=== PATIENT | female | born 1950 | race Caucasian/White ===

== ENCOUNTER 2020-01-19 10:23 | Outpatient (REF) | payer MEDICARE, SELFPAY ==
--- NOTE | 2020-01-19 10:57 | XR_ITS ---
EXAMINATION: XR KNEE, BILATERAL XR KNEE, LEFT CLINICAL INFORMATION: Pain in left knee COMPARISON: None TECHNIQUE: AP standing view of both knees. Lateral and sunrise views of the left knee. FINDINGS: Left knee: No fracture or subluxation. Mild medial compartment and patellofemoral compartment joint space narrowing. Small tricompartmental marginal osteophytes. No joint effusion. Right knee: No fracture or subluxation. Mild medial compartment joint space narrowing with marginal osteophytes at the medial and lateral compartments. XR/XR knee LT 2V IMPRESSION: Lateral compartmental degenerative changes of the left knee as above.
--- NOTE | 2020-01-19 10:57 | XR_ITS ---
EXAMINATION: XR KNEE, BILATERAL XR KNEE, LEFT CLINICAL INFORMATION: Pain in left knee COMPARISON: None TECHNIQUE: AP standing view of both knees. Lateral and sunrise views of the left knee. FINDINGS: Left knee: No fracture or subluxation. Mild medial compartment and patellofemoral compartment joint space narrowing. Small tricompartmental marginal osteophytes. No joint effusion. Right knee: No fracture or subluxation. Mild medial compartment joint space narrowing with marginal osteophytes at the medial and lateral compartments. XR/XR knee standing BI IMPRESSION: Lateral compartmental degenerative changes of the left knee as above.
== END 2020-01-19 10:24 | disposition home or self-care (01) ==
LOC: HO.HOSX 10:23
PROVIDERS: PCP Family Medicine; Referring Provider Family Medicine; Visit Provider Orthopaedic Surgery
DX: M25.562 Pain in left knee (principal); M25.561 Pain in right knee
CPT/HCPCS: 20610; 73560; 73565; 99202; J1040

== ENCOUNTER → 2020-02-06 13:40 | Outpatient (BNVA) | payer MEDICARE, SELFPAY | PROVIDERS: PCP Family Medicine; Visit Provider Orthopaedic Surgery | DX: M17.11 Unilateral primary osteoarthritis, right knee (principal); I10 Essential (primary) hypertension | CPT/HCPCS: 20610; 99212; J1040 ==

== ENCOUNTER 2020-02-13 10:45 | Outpatient (REF) | payer MEDICARE, SELFPAY ==
[2020-02-13 14:24] LABS: Cholesterol 260 mg/dL; HDL Cholesterol 39 mg/dL; Triglycerides 413 mg/dL
[2020-02-15 04:17] LABS: LDL Cholesterol Direct 162 mg/dL (<100)
== END 2020-02-13 10:46 | disposition home or self-care (01) ==
LOC: HO.WFDLDS 10:45
PROVIDERS: PCP Family Medicine; Visit Provider Family Medicine
DX: Z00.00 Encounter for general adult medical examination without abnormal findings (principal); E78.5 Hyperlipidemia, unspecified; Z20.828 Contact with and (suspected) exposure to other viral communicable diseases
CPT/HCPCS: 80061; 83721

== ENCOUNTER → 2020-03-13 13:43 | Outpatient (BNVA) | payer MEDICARE, SELFPAY | PROVIDERS: Visit Provider Internal Medicine Cardiovascular Disease | DX: I10 Essential (primary) hypertension (principal); Z86.711 Personal history of pulmonary embolism | CPT/HCPCS: 93005; 99212 ==

== ENCOUNTER → 2020-03-18 07:48 | Outpatient (BNV) | payer MEDICARE, SELFPAY | PROVIDERS: PCP Family Medicine; Visit Provider Internal Medicine | DX: D68.51 Activated protein C resistance (principal); Z86.711 Personal history of pulmonary embolism | CPT/HCPCS: 99212; 99213; 99214 ==

== ENCOUNTER → 2020-05-14 07:55 | Outpatient (BNVA) | payer MEDICARE, SELFPAY | PROVIDERS: PCP Family Medicine; Visit Provider Orthopaedic Surgery | DX: M17.11 Unilateral primary osteoarthritis, right knee (principal) | CPT/HCPCS: 20610; 99212; J1040 ==

== ENCOUNTER 2020-05-20 18:20 | Inpatient (IN) | payer MEDICARE, SELFPAY ==
--- NOTE | ~2020-05-20 | CT_ITS ---
EXAMINATION: CT HEAD WITHOUT CONTRAST CLINICAL INFORMATION: headache; htn urgency COMPARISON: 11/02/2017 TECHNIQUE: Contiguous axial imaging was performed from the skull base to vertex without intravenous administration of contrast. This CT examination was performed using dose optimization techniques as appropriate, variously including the following: *Automated exposure control *Adjustment of mA and/or kV according to patient size (this includes techniques or standardized protocols for targeted exams where dose is matched to indication/reason for exam; i.e. extremities or head) *Use of iterative reconstruction technique DLP: 737 mGy-cm FINDINGS: There is no evidence of acute intracranial hemorrhage or territorial infarction. No abnormal mass effect or midline shift is seen. Vick to white matter differentiation is well preserved. No extra-axial fluid collections are identified. The ventricles are normal in size. A few subtle foci of hypoattenuation in the subcortical and periventricular white matter are most consistent with chronic microangiopathic changes. Calcific atherosclerosis is present within the cavernous and supraclinoid segments of the internal carotid arteries. Hyperostosis frontalis interna is again noted. The osseous structures and soft tissues are otherwise normal. The mastoid air cells and visualized portions of the paranasal sinuses are well aerated. CT/CT head/brain wo con IMPRESSION: No acute intracranial pathology.
--- NOTE | ~2020-05-20 | XR_ITS ---
EXAMINATION: XR CHEST CLINICAL INFORMATION: Chest pain COMPARISON: Previous CT of the chest September 2019 and chest x-ray November 2017 TECHNIQUE: 2 views of the chest were obtained. FINDINGS: The cardiac and mediastinal contours are stable. The lung volumes are low. The lungs are clear. There is no pleural effusion or pneumothorax. Bony structures are unremarkable. There are surgical clips in the right neck. XR/XR chest 2V IMPRESSION: No evidence for acute disease in the chest.
[2020-05-20 18:24] VITALS: BP 230/81; PULSE 78; RESP 18; TEMP 36.8; O2SAT 96; BMI 96.7
--- NOTE | 2020-05-20 18:30 | ECG_ITS ---
Test Reason : CP Blood Pressure : / mmHG Vent. Rate : 060 BPM Atrial Rate : 060 BPM P-R Int : 180 ms QRS Dur : 132 ms QT Int : 454 ms P-R-T Axes : 069 061 023 degrees QTc Int : 454 ms Normal sinus rhythm Right bundle branch block Abnormal ECG When compared with ECG of 01-NOV-2018 17:20, No significant change was found Referred By: Katerin Laughlin Electronically Signed By:DIANA ELMORE MD
[2020-05-20 20:25] LABS: MANUAL DIFF FLAG NO
[2020-05-20 20:26] LABS: Basophils Absolute Auto 0.1 X10*3/uL (0.0-0.2); Basophils Percent Auto 0.6 % (0-2); Eosinophils Absolute Auto 0.2 X10*3/uL (0.0-0.4); Eosinophils Percent Auto 1.9 % (0-4); Hematocrit 43.2 % (37-47); Hemoglobin 14.3 g/dl (12.0-16.0); Imm Gran Abs Auto 0.03 X10*3/uL (0.00-0.03); Imm Gran Pct Auto 0.3 % (0.0-0.4); Lymphocytes Percent Auto 35.7 % (20-40); Mean Corpuscular HGB Conc 33.1 g/dl (31.0-35.0); Mean Corpuscular Hemoglobin 30.4 pg (27.0-33.0); Mean Corpuscular Volume 91.9 fL (80-98); Mean Platelet Volume 10.6 fL (9.4-12.3); Monocytes Absolute Auto 0.9 X10*3/uL (0.1-1.2); Monocytes Percent Auto 8.2 % (2-11); Neutrophils Percent Auto 53.3 % (45-73); Platelet Count 234 X10*3/uL (160-400); Red Cell Distribution Width 13.2 % (11.0-16.0); White Blood Count 11.3 X10*3/uL (4.8-10.8)
[2020-05-20 20:37] VITALS: BP 200/79; PULSE 56; RESP 20; TEMP 36.9; O2SAT 95
--- NOTE | 2020-05-20 20:38 | PC.NURSE ---
REPORTS UNDER STRESS. RECENTLY LOST SON TO HEART ATTACK. TOOK BP MEDS TODAY.
[2020-05-20 20:48] LABS: Anion Gap 11 (12-20); Blood Urea Nitrogen 19 mg/dL (9-16); Carbon Dioxide 29 mmol/L (22-29); Chloride 104 mmol/L (96-108); Creatinine Clr Calc Pharmacy 137.2; Estimated Glomerular Filt Rate > 60; Glucose Random 113 mg/dL (60-115); Potassium 4.2 mmol/L (3.3-5.1); Sodium 140 mmol/L (135-145)
[2020-05-20 21:03] LABS: Troponin-I High Sensitivity 108.2 ng/L (<3.5-17.0)
--- NOTE | 2020-05-20 21:23 | ED.GENADULT ---
HPI - General Adult General Chief complaint: General Medical Stated complaint: heart racing Time Seen by Provider: 05/20/20 21:23 Source: patient Mode of arrival: ambulatory History of Present Illness HPI narrative: This is 69-year-old female who presents with acknowledged recent loss of her son on 05/08 and states that today she began having difficulties with her blood pressure control as well as having a headache but denies any associated visual or speech deficits and denies any unilateral numbness/tingling/weakness. However, her headache has persisted despite taking Tylenol at approximately 2:30 p.m. this afternoon and additional blood pressure medication at 3:30 p.m. patient states that after taking the Lopressor she is feeling better, chest pain has resolved. Related Data Home Medications Medication Instructions Recorded Confirmed chlorthalidone 50 mg tablet 50 mg PO DAILY 01/19/20 05/20/20 lisinopril 40 mg tablet 40 mg PO DAILY 01/19/20 05/20/20 paroxetine HCl 20 mg tablet 20 mg PO DAILY 01/19/20 05/20/20 multivitamin 1 tab PO DAILY 03/18/20 05/20/20 aspirin 81 mg tablet,delayed 81 mg PO DAILY 05/14/20 05/20/20 release gabapentin 300 mg PO BID 05/20/20 05/20/20 metformin 750 mg PO BID 05/20/20 05/20/20 Previous Rx's Medication Instructions Recorded metoprolol tartrate 25 mg tablet 25 mg PO BID #180 tab 02/27/20 oxybutynin chloride 5 mg tablet 5 mg PO DAILY 90 Days #90 tab 03/17/20 fluticasone propionate 50 1 spray INTRANASAL BID 30 Days #16 04/24/20 mcg/actuation nasal g spray,suspension acetaminophen 300 mg-codeine 30 mg 1 - 2 tab PO Q8H PRN #20 tab 05/14/20 tablet Allergies Allergy/AdvReac Type Severity Reaction Status Date / Time oxycodone [OXYCODONE] Allergy Mild NAUSEA & Verified 03/13/20 13:59 VOMITING, auditory hallucination, hallucinations bupropion [From WELLBUTRIN] AdvReac Mild NAUSEA & Verified 03/13/20 13:59 VOMITING Review of Systems Review of Systems: Pertinent positives and negatives as stated in HPI 10 point review systems is otherwise negative. 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 GENERAL: Well developed, well nourished, mild distress. HEAD: Normocephalic/atraumatic, EYES: PERRLA, EOMI NOSE: Mild, transient epistaxis of the right nare OROPHARYNX: no oral lesions noted, posterior pharynx clear NECK: Supple, no adenopathy LUNGS: Normal breath sounds. No adventitious sounds or accessory muscle use. SpO2<96> CARDIOVASCULAR: Regular rate and rhythm without noted murmurs, no JVD or lower extremity edema. ABDOMEN: Obese, Soft, non-tender, non-distended with bowel sounds. SKIN: Inspection of the skin reveals no rashes NEUROLOGIC: Alert and oriented x 4. Patient is slightly tearful due to grieving process. Course Course Course Narrative: This is a 69-year-old female with history and clinical presentation consistent with uncontrolled hypertension that likely contributed to patient's headache and chest pain symptoms but likely component of anxiety as well secondary to grieving process with the recent loss of her son. Patient is not suicidal and states that she has good support systems with her friends. Patient is currently asymptomatic except for the headache without any neurologic deficits. Review of all investigations negative for any acute findings other than UTI and on serial troponins noted to be consistent with NSTEMI. The case was discussed with Cardiology and inpatient hospitalist team and patient was provided with ASA and Lovenox and admitted. Medical Decision Making Lab Data Result diagrams: 05/20/20 20:20 05/20/20 20:20 Labs: Lab Results 05/20/20 05/20/20 05/20/20 Range/Units 20:20 20:20 20:20 WBC 11.3 H (4.8-10.8) X10*3/uL RBC 4.70 (4.20-5.50) X10*6/uL Hgb 14.3 (12.0-16.0) g/dl Hct 43.2 (37-47) % MCV 91.9 (80-98) fL MCH 30.4 (27.0-33.0) pg MCHC 33.1 (31.0-35.0) g/dl RDW 13.2 (11.0-16.0) % Plt Count 234 (160-400) X10*3/uL MPV 10.6 (9.4-12.3) fL Immature Gran % (Auto) 0.3 (0.0-0.4) % Neut % (Auto) 53.3 (45-73) % Lymph % (Auto) 35.7 (20-40) % [place] % (Auto) 8.2 (2-11) % Eos % (Auto) 1.9 (0-4) % Baso % (Auto) 0.6 (0-2) % Lymph # (Auto) 4.0 (1.2-4.9) X10*3/uL [place] # (Auto) 0.9 (0.1-1.2) X10*3/uL Eos # (Auto) 0.2 (0.0-0.4) X10*3/uL Baso # (Auto) 0.1 (0.0-0.2) X10*3/uL Abs Immat Gran (auto) 0.03 (0.00-0.03) X10*3/uL Absolute Neuts (auto) 6.0 (2.0-8.3) X10*3/uL Absolute Nucleated RBC 0.000 (0.0-0.012) X10*3/uL Nucleated RBC % (auto) 0.0 (0.0-0.2) /100WBC PT 11.7 (10.8-13.0) SEC INR 1.0 (0.9-1.1) APTT 35.1 (24.1-38.0) SEC Hold Blue Top SEE NOTE Sodium 140 (135-145) mmol/L Potassium 4.2 (3.3-5.1) mmol/L Chloride 104 (96-108) mmol/L Carbon Dioxide 29 (22-29) mmol/L Anion Gap 11 L (12-20) BUN 19 H (9-16) mg/dL Creatinine 0.77 (0.5-1.4) mg/dL Estim Creat Clear Calc 137.2 Estimated GFR > 60 Random Glucose 113 (60-115) mg/dL Calcium 9.0 (8.4-10.2) mg/dL Troponin I High Sens (<3.5-17.0) ng/L Urine Color Urine Appearance Urine pH (5.0-8.0) Ur Specific [place] (1.005-1.025) Urine Protein (NEG-TRACE) MG/DL Urine Glucose (UA) (NEG) MG/DL Urine Ketones (NEG) MG/DL Urine Blood (NEG) Urine Nitrite (NEG) Ur Leukocyte Esterase (NEG) Urine RBC (0) /HPF Urine WBC (0-4) /HPF Ur Squamous Epith Cells /LPF Ur Renal Epithelial Cell /LPF Urine Bacteria /LPF Urine Mucus /LPF 05/20/20 05/20/20 05/21/20 Range/Units 20:20 22:06 00:07 WBC (4.8-10.8) X10*3/uL RBC (4.20-5.50) X10*6/uL Hgb (12.0-16.0) g/dl Hct (37-47) % MCV (80-98) fL MCH (27.0-33.0) pg MCHC (31.0-35.0) g/dl RDW (11.0-16.0) % Plt Count (160-400) X10*3/uL MPV (9.4-12.3) fL Immature Gran % (Auto) (0.0-0.4) % Neut % (Auto) (45-73) % Lymph % (Auto) (20-40) % [place] % (Auto) (2-11) % Eos % (Auto) (0-4) % Baso % (Auto) (0-2) % Lymph # (Auto) (1.2-4.9) X10*3/uL [place] # (Auto) (0.1-1.2) X10*3/uL Eos # (Auto) (0.0-0.4) X10*3/uL Baso # (Auto) (0.0-0.2) X10*3/uL Abs Immat Gran (auto) (0.00-0.03) X10*3/uL Absolute Neuts (auto) (2.0-8.3) X10*3/uL Absolute Nucleated RBC (0.0-0.012) X10*3/uL Nucleated RBC % (auto) (0.0-0.2) /100WBC PT (10.8-13.0) SEC INR (0.9-1.1) APTT (24.1-38.0) SEC Hold Blue Top Sodium (135-145) mmol/L Potassium (3.3-5.1) mmol/L Chloride (96-108) mmol/L Carbon Dioxide (22-29) mmol/L Anion Gap (12-20) BUN (9-16) mg/dL Creatinine (0.5-1.4) mg/dL Estim Creat Clear Calc Estimated GFR Random Glucose (60-115) mg/dL Calcium (8.4-10.2) mg/dL Troponin I High Sens 108.2 H 433.2 H D (<3.5-17.0) ng/L Urine Color YELLOW Urine Appearance CLEAR Urine pH 7.0 (5.0-8.0) Ur Specific [place] 1.020 (1.005-1.025) Urine Protein NEG (NEG-TRACE) MG/DL Urine Glucose (UA) NEG (NEG) MG/DL Urine Ketones NEG (NEG) MG/DL Urine Blood NEG (NEG) Urine Nitrite NEG (NEG) Ur Leukocyte Esterase 1+ H (NEG) Urine RBC 0-2 (0) /HPF Urine WBC 10-14 H (0-4) /HPF Ur Squamous Epith Cells TRACE /LPF Ur Renal Epithelial Cell TRACE /LPF Urine Bacteria NONE /LPF Urine Mucus 2+ /LPF ECG Data Attestation: I personally reviewed and interpreted this ECG as follows: Prior ECG tracings: available for review (11/01/2018 no acute changes on comparison) Interpretation: Normal sinus rhythm, HR-60, no evidence of acute ischemia, RBBB, DC/QTC are within normal limits. Discharge Plan Discharge Clinical Impression: Non-ST elevation NC (NSTEMI), Acute UTI Patient Disposition: Admitted As Inpatient
[2020-05-20 22:09] VITALS: BP 183/66; PULSE 61; RESP 16; O2SAT 96
[2020-05-20] MEDS: Acetaminophen 325 MG TABLET 975 MG PO (22:28)
[2020-05-20 22:44] VITALS: BP 166/47; PULSE 55; RESP 16; O2SAT 96
[2020-05-20] MEDS: hydrOXYzine HCL 50 MG TABLET PO (22:45)
--- NOTE | 2020-05-20 22:56 | PC.NURSE ---
pt states that she is under alot of stress from mourning the loss of both her son and . pt states she has not been eating well and not getting enough sleep. bp elevated pt does take her medication as prescribed. pt bp improving.
[2020-05-20 23:09] LABS: Glucose Urine UA NEG (NEG); Leukocyte Esterase Urine 1+ (NEG); Nitrite Urine NEG (NEG); UACC Culture Trigger YES; Urine Blood NEG (NEG); Urine Ketones NEG (NEG); Urine Protein NEG (NEG-TRACE)
[2020-05-20 23:11] LABS: Appearance Urine CLEAR; Color Urine YELLOW
[2020-05-20 23:33] LABS: Mucus Urine 2+ /LPF; RBC Urine 0-2 /HPF (0); Renal Epithelial Cells Urine TRACE /LPF; Squamous Epithelial Cell Urine TRACE /LPF
[2020-05-21] VITALS (15 sets, daily range): BP systolic 143–193; BP diastolic 38–90; PULSE 55–107; RESP 16–20; TEMP 36.3–36.8; O2SAT 93–98; BMI 44.6
[2020-05-21 00:57] LABS: Troponin-I High Sensitivity 433.2 ng/L (<3.5-17.0)
--- NOTE | 2020-05-21 00:58 | PC.NURSE ---
pt denies chest pain, no sob, no nausea, no abd discomfort. pt watching tv, bp improved 168/38 hr sb 56, repeat ekg to be done.
--- NOTE | 2020-05-21 01:02 | ECG_ITS ---
Test Reason : CP Blood Pressure : / mmHG Vent. Rate : 055 BPM Atrial Rate : 055 BPM P-R Int : 190 ms QRS Dur : 140 ms QT Int : 486 ms P-R-T Axes : 034 058 032 degrees QTc Int : 464 ms Sinus bradycardia Right bundle branch block Abnormal ECG When compared with ECG of 20-MAY-2020 18:40, No significant change was found Referred By: Katerin Laughlin Electronically Signed By:DIANA ELMORE MD
[2020-05-21 01:09] LABS: Prothrombin Time 11.7 SEC (10.8-13.0)
[2020-05-21 01:11] LABS: Partial Thromboplastin Time 35.1 SEC (24.1-38.0)
[2020-05-21] MEDS: Aspirin 81 MG TAB.CHEW 324 MG PO (01:35)
--- NOTE | 2020-05-21 01:43 | P.HPHOSP_ITS ---
History of Present Illness Date of Service: 05/21/20 Chief Complaint: chest pain 69-year-old female with a past medical history of hypertension, diabetes, anxiety, depression presented to the hospital with a chief complaint of chest pain. Patient reports that she has been under stress lately as she lost her son about 2 weeks ago and her about few months ago. Lives alone. Alone 3:00 p.m. this afternoon she had chest pain pressure like in nature nonradiating no associated nausea or diaphoresis; at the same time she had headaches; denies any numbness tingling or focal weakness. And when she checked her blood pressure it was elevated took her metoprolol. Headache started to improve slightly but chest pain was still persistent hence decided to come to the ER for further evaluation. Denies any fever chills cough. Denies any recent travel sick contacts. At the time of my interview patient reported that her chest pain improved. Headache improving. Denied any complaints. Review of all other systems is negative except mentioned above ER course: Per ER team EKG showed RBBB, troponin was elevated from 03/15 2433. Chest pain improved. Patient was given aspirin. Discussed with Dr. ko from Cardiology who recommended to start on anticoagulation with Lovenox and admitted to the [facility] for further evaluation in the morning. 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 Allergies Allergy/AdvReac Type Severity Reaction Status Date / Time oxycodone [OXYCODONE] Allergy Mild NAUSEA & Verified 03/13/20 13:59 VOMITING, auditory hallucination, hallucinations bupropion [From WELLBUTRIN] AdvReac Mild NAUSEA & Verified 03/13/20 13:59 VOMITING Active Medications: Current Medications Generic Name Dose Route Start Last Admin Trade Name Freq PRN Reason Stop Dose Admin Acetaminophen 650 mg 05/21/20 01:33 Acetaminophen 325 Mg Tablet PO Q6H PRN Pain, Mild (Pain Scale 1-3) Enoxaparin Sodium 110 mg 05/21/20 13:45 Enoxaparin Sodium 120 Mg/0.8 Ml Syringe SUBCUT Q12H [facility] Fluticasone Propionate 1 spray 05/21/20 09:00 Fluticasone Propionate Nasal 16 Gm [place] NOSTRIL-B BID [facility] Gabapentin 300 mg 05/21/20 09:00 Gabapentin 300 Mg Capsule PO BID [facility] Insulin Human Lispro 0 unit 05/21/20 07:30 Insulin Lispro 100 Unit/Ml 3 Ml Vial SUBCUT QIDACHS [facility] Protocol Lisinopril 40 mg 05/21/20 09:00 Lisinopril 40 Mg Tablet PO DAILY [facility] Protocol Metformin HCl 750 mg 05/21/20 09:00 Metformin Hcl 500 Mg Tablet PO BID [facility] Metoprolol Tartrate 25 mg 05/21/20 09:00 Metoprolol Tartrate 25 Mg Tablet PO BID [facility] Protocol Multivitamins/Vitamin C 1 tab 05/21/20 09:00 Multivitamin Tablet PO DAILY [facility] Nitroglycerin 0.4 mg 05/21/20 01:33 Nitroglycerin 0.4 Mg Tab.Subl SUBLINGUAL Q5M PRN Chest Pain Non-Formulary Medication 5 mg 05/21/20 09:00 Oxybutynin Chloride PO DAILY [facility] Paroxetine HCl 20 mg 05/21/20 09:00 Paroxetine Hcl 20 Mg Tablet PO DAILY [facility] Sodium Chloride 3 ml 05/21/20 08:00 0.9 % Sodium Chloride Flush 3 Ml Syringe IVFLUSH QSHIFT [facility] Home Medications Medication Instructions Recorded Confirmed Last Taken Type chlorthalidone 50 mg tablet 50 mg PO DAILY 01/19/20 05/20/20 05/20/20 History lisinopril 40 mg tablet 40 mg PO DAILY 01/19/20 05/20/20 05/20/20 History paroxetine HCl 20 mg tablet 20 mg PO DAILY 01/19/20 05/20/20 05/20/20 History multivitamin 1 tab PO DAILY 03/18/20 05/20/20 05/20/20 History aspirin 81 mg tablet,delayed 81 mg PO DAILY 05/14/20 05/20/20 05/19/20 History release gabapentin 300 mg PO BID 05/20/20 05/20/20 05/20/20 History metformin 750 mg PO BID 05/20/20 05/20/20 05/20/20 History Physical Exam Vital Signs and Narrative: Vital Signs: Last Vital Signs Temp 98.4 F 05/20/20 20:37 Pulse 57 05/21/20 01:37 Resp 18 05/21/20 01:37 BP 159/43 H 05/21/20 01:37 Pulse Ox 94 05/21/20 01:37 Body Mass Index 96.7 Gen: Appears be in no acute distress HEENT: NCAT, Moist mucosa. Pulmonary: Vesicular breath sounds, fair air entry CVS: Normal S1-S2 Abdomen: BS+, Soft, Nontender Extremities: Warm well perfused Neuro: Alert and awake. Results Labs CBC and Chem 7: 05/20/20 20:20 05/20/20 20:20 Labs: Laboratory Results - last 24 hr 05/20/20 05/20/20 05/20/20 20:20 20:20 20:20 MCV 91.9 MCH 30.4 MCHC 33.1 RDW 13.2 Plt Count 234 MPV 10.6 Immature Gran % (Auto) 0.3 Neut % (Auto) 53.3 Lymph % (Auto) 35.7 [place] % (Auto) 8.2 Eos % (Auto) 1.9 Baso % (Auto) 0.6 Lymph # (Auto) 4.0 [place] # (Auto) 0.9 Eos # (Auto) 0.2 Baso # (Auto) 0.1 Abs Immat Gran (auto) 0.03 Absolute Neuts (auto) 6.0 Absolute Nucleated RBC 0.000 Nucleated RBC % (auto) 0.0 PT 11.7 INR 1.0 APTT 35.1 Hold Blue Top SEE NOTE Anion Gap 11 L Estim Creat Clear Calc 137.2 Estimated GFR > 60 Random Glucose 113 Calcium 9.0 Troponin I High Sens Urine Color Urine Appearance Urine pH Ur Specific [place] Urine Protein Urine Glucose (UA) Urine Ketones Urine Blood Urine Nitrite Ur Leukocyte Esterase Urine RBC Urine WBC Ur Squamous Epith Cells Ur Renal Epithelial Cell Urine Bacteria Urine Mucus 05/20/20 05/20/20 05/21/20 20:20 22:06 00:07 MCV MCH MCHC RDW Plt Count MPV Immature Gran % (Auto) Neut % (Auto) Lymph % (Auto) [place] % (Auto) Eos % (Auto) Baso % (Auto) Lymph # (Auto) [place] # (Auto) Eos # (Auto) Baso # (Auto) Abs Immat Gran (auto) Absolute Neuts (auto) Absolute Nucleated RBC Nucleated RBC % (auto) PT INR APTT Hold Blue Top Anion Gap Estim Creat Clear Calc Estimated GFR Random Glucose Calcium Troponin I High Sens 108.2 H 433.2 H D Urine Color YELLOW Urine Appearance CLEAR Urine pH 7.0 Ur Specific [place] 1.020 Urine Protein NEG Urine Glucose (UA) NEG Urine Ketones NEG Urine Blood NEG Urine Nitrite NEG Ur Leukocyte Esterase 1+ H Urine RBC 0-2 Urine WBC 10-14 H Ur Squamous Epith Cells TRACE Ur Renal Epithelial Cell TRACE Urine Bacteria NONE Urine Mucus 2+ Assessment and Plan (1) Chest pain: Status: Acute 69-year-old female with a past medical history of hypertension, diabetes, anxiety, depression, osteoarthritis presented to the hospital with a chief complaint of chest pain/headache; noted to be in hypertensive urgency/NSTEMI. Admitted for further evaluation. NSTEMI: Patient's chest pain improved. Troponin elevated from 108-433. Cardiology aware, recommended anticoagulation. Patient given aspirin and Lovenox. Will continue for now. Telemetry; cycle enzymes. Will also obtain echocardiogram to rule out any stress cardiomyopathy or wall motion abnormality. Hypertensive urgency: Patient's blood pressure improved 230/81 to 168/43, without any intervention. Patient received hydroxyzine for anxiety in the ER. Will continue her home medications from later in the day. UTI: Continue ceftriaxone. Follow up cultures. Diabetes: Insulin sliding scale. Depression: Continue home medications. DVT prophylaxis: Patient on systemic anticoagulation. Code status: Full code
[2020-05-21] MEDS: cefTRIAXone sodium 1 GM in 0.9 % Sodium Chloride 50 ML IV (02:04)
[2020-05-21] MEDS: Enoxaparin Sodium 100 MG/ML SYRINGE 110 MG SUBCUT (02:07)
[2020-05-21 03:18] LABS: COVID-19 Test Negative (Negative); IDNOW Serial# 9DD0AD1C
--- NOTE | 2020-05-21 05:40 | PC.NURSE ---
pt bp elevated due to not taking her medications last night. pt missed her bp and devyn[ronaldon
--- NOTE | 2020-05-21 05:46 | PC.NURSE ---
hospitalist made aware of pt bp and her lower back pain. bp range no lower than the 170's for SBP. pain relief order for lido patch to be entered.
[2020-05-21 08:01] LABS: MANUAL DIFF FLAG NO
[2020-05-21 08:05] LABS: Basophils Absolute Auto 0.1 X10*3/uL (0.0-0.2); Basophils Percent Auto 0.8 % (0-2); Eosinophils Absolute Auto 0.2 X10*3/uL (0.0-0.4); Eosinophils Percent Auto 2.1 % (0-4); Hematocrit 43.5 % (37-47); Imm Gran Abs Auto 0.02 X10*3/uL (0.00-0.03); Imm Gran Pct Auto 0.3 % (0.0-0.4); Lymphocytes Absolute Auto 3.2 X10*3/uL (1.2-4.9); Lymphocytes Percent Auto 41.9 % (20-40); Mean Corpuscular HGB Conc 32.2 g/dl (31.0-35.0); Mean Corpuscular Hemoglobin 29.8 pg (27.0-33.0); Mean Corpuscular Volume 92.6 fL (80-98); Mean Platelet Volume 10.5 fL (9.4-12.3); Monocytes Absolute Auto 0.6 X10*3/uL (0.1-1.2); Monocytes Percent Auto 7.5 % (2-11); Neutrophils Absolute Auto 3.6 X10*3/uL (2.0-8.3); Neutrophils Percent Auto 47.4 % (45-73); Platelet Count 236 X10*3/uL (160-400); Red Cell Distribution Width 13.3 % (11.0-16.0); White Blood Count 7.6 X10*3/uL (4.8-10.8)
--- NOTE | 2020-05-21 08:29 | PC.NURSE ---
report given for admission
[2020-05-21 08:31] LABS: Anion Gap 8 (12-20); Blood Urea Nitrogen 17 mg/dL (9-16); Calcium 8.6 mg/dL (8.4-10.2); Carbon Dioxide 29 mmol/L (22-29); Chloride 105 mmol/L (96-108); Creatinine Clr Calc Pharmacy 90.3; Estimated Glomerular Filt Rate > 60; Glucose Random 127 mg/dL (60-115); Potassium 3.9 mmol/L (3.3-5.1); Sodium 138 mmol/L (135-145)
--- NOTE | 2020-05-21 09:14 | MHC.CM.PN ---
pt lives alone due to recent losses. she reports she is independent in her care. active in community. has no svcs in the home. the plan at this time is [place] [facility] [place] action to transport. cm to cont. to follow.
--- NOTE | 2020-05-21 09:25 | PM.CNCAR ---
History of Present Illness History of Present Illness Date of Service: 05/21/20 Requesting physician: Boris Melendez Consult reason: chest pain Chief complaint: NSTEMI Narrative: Thank you for asking as to see Joi in cardiology consultation today for elevated troponins and chest discomfort. She is a pleasant 69-year-old woman with prior history of pulmonary embolism, hypertension, diabetes and hyperlipidemia. She is still grieving sudden loss of her son about a week and half ago in very emotional about it. Yesterday afternoon developed sudden onset chest pressure. Symptoms then subsided and came back again. She came to the emergency room. Initial troponin was slightly elevated repeat troponin was further elevated with more than 50% delta. EKG did not show any significant changes. Her symptoms subsided emergency room. While talking about his son she was having more chest discomfort but much milder than yesterday. She says she feels a lot better. She denies any shortness of breath. Denies any nausea vomiting diaphoresis lightheadedness, syncope. No palpitations. She had a cardiac catheterization in 2010 which showed normal coronary Angiography Review of Systems Constitutional: Constitutional: Reports no additional constitutional complaints Cardiovascular: Cardiovascular: Reports chest pain at rest, Denies syncope, Denies lightheadedness, Denies Loss of Consciousness and Denies palpitations Respiratory: Respiratory: Reports no additional respiratory complaints Gastrointestinal: Gastrointestinal: Reports no additional gastrointestinal complaints Genitourinary: Genitourinary: Reports no additional female genitourinary complaints Musculoskeletal: Musculoskeletal: Reports no additional musculoskeletal complaints Integumentary/Breasts: Skin/Breast: Reports system reviewed and no additional complaints, except as docu Neurologic: Reports system reviewed and no additional complaints, except as documented and Denies syncope Psychiatric: Psychiatric: Reports no additional psychiatric complaints Endocrine: Endocrine: Reports no additional endocrine complaints and Denies palpitations [facility] Past Medical History Medical History Hypertension PSVT (paroxysmal supraventricular tachycardia) Uterine cancer Family History Family History Sister Lung cancer Stroke Father Heart attack Mother Heart attack Son Diabetes Brother Parkinsons Brother Diverticulitis Surgical History Surgical History History of hysterectomy Social History Social History Alcohol intake: never Smoking Status: Former smoker Packs Per Day: 1 Use of substances other than those prescribed or required for medical reasons: No Advance Directives: No service: No Current occupational status: retired 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 Allergies Allergy/AdvReac Type Severity Reaction Status Date / Time oxycodone [OXYCODONE] Allergy Mild NAUSEA & Verified 03/13/20 13:59 VOMITING, auditory hallucination, hallucinations bupropion [From WELLBUTRIN] AdvReac Mild NAUSEA & Verified 03/13/20 13:59 VOMITING Active Medications: Current Medications Generic Name Dose Route Start Last Admin Trade Name Freq PRN Reason Stop Dose Admin Acetaminophen 650 mg 05/21/20 01:33 Acetaminophen 325 Mg Tablet PO Q6H PRN Pain, Mild (Pain Scale 1-3) Enoxaparin Sodium 110 mg 05/21/20 14:00 Enoxaparin Sodium 120 Mg/0.8 Ml Syringe SUBCUT Q12H [facility] Fluticasone Propionate 1 spray 05/21/20 09:00 Fluticasone Propionate Nasal 16 Gm [place] NOSTRIL-B BID [facility] Gabapentin 300 mg 05/21/20 09:00 Gabapentin 300 Mg Capsule PO BID [facility] Ceftriaxone Sodium 1 gm/ 50 mls @ 100 mls/hr 05/22/20 02:00 Sodium Chloride IV Q24H [facility] Insulin Human Lispro 0 unit 05/21/20 07:30 Insulin Lispro 100 Unit/Ml 3 Ml Vial SUBCUT QIDACHS [facility] Protocol Lidocaine 1 patch 05/21/20 09:00 Lidocaine 4 % Patch Adh..Patch TRANSDERMA DAILY [facility] Protocol Lisinopril 40 mg 05/21/20 09:00 Lisinopril 40 Mg Tablet PO DAILY [facility] Protocol Metformin HCl 750 mg 05/21/20 09:00 Metformin Hcl 500 Mg Tablet PO BID [facility] Metoprolol Tartrate 25 mg 05/21/20 09:00 Metoprolol Tartrate 25 Mg Tablet PO BID [facility] Protocol Multivitamins/Vitamin C 1 tab 05/21/20 09:00 Multivitamin Tablet PO DAILY [facility] Nitroglycerin 0.4 mg 05/21/20 01:33 Nitroglycerin 0.4 Mg Tab.Subl SUBLINGUAL Q5M PRN Chest Pain Oxybutynin Chloride 5 mg 05/21/20 09:00 Oxybutynin Chloride Er 5 Mg Tab.Er.24 PO DAILY [facility] Paroxetine HCl 20 mg 05/21/20 09:00 Paroxetine Hcl 20 Mg Tablet PO DAILY [facility] Sodium Chloride 3 ml 05/21/20 08:00 0.9 % Sodium Chloride Flush 3 [facility] Medications Medication Instructions Recorded Confirmed Last Taken Type chlorthalidone 50 mg tablet 50 mg PO DAILY 01/19/20 05/20/20 05/20/20 History lisinopril 40 mg tablet 40 mg PO DAILY 01/19/20 05/20/20 05/20/20 History paroxetine HCl 20 mg tablet 20 mg PO DAILY 01/19/20 05/20/20 05/20/20 History multivitamin 1 tab PO DAILY 03/18/20 05/20/20 05/20/20 History aspirin 81 mg tablet,delayed 81 mg PO DAILY 05/14/20 05/20/20 05/19/20 History release gabapentin 300 mg PO BID 05/20/20 05/20/20 05/20/20 History metformin 750 mg PO DAILY 05/20/20 05/21/20 05/20/20 History Physical Exam Vital Signs: Vital Signs: Last Vital Signs Temp 98.4 F 05/20/20 20:37 Pulse 55 05/21/20 08:00 Resp 16 05/21/20 08:00 BP 171/52 H 05/21/20 08:00 Pulse Ox 98 05/21/20 08:00 Body Mass Index 44.6 Const: General: cooperative, comfortable, no acute distress, alert and awake Nutritional Appearance: obese Orientation/consciousness: patient oriented x3 Limitations: no limitations HENMT: Head: Yes normocephalic and Yes atraumatic Neck: Neck: Yes trachea midline, Yes supple and Yes no JVD Chest: Chest palpation & inspection: normal inspection of the chest Resp: Effort & Inspection: normal respiratory effort Auscultation: clear to auscultation bilaterally Cardio: Jugular venous distension: no JVD Rate: regular rate Rhythm: regular rhythm Heart sounds: S1 normal heart sound present and S2 normal heart sound present GI: Auscultation: normal bowel sounds Skin: General skin exam: no rashes or lesions noted Neuro: General: patient oriented x3 and no focal motor deficits Extrem: General: Yes no clubbing, cyanosis or edema Psych: Appearance: grossly normal Results Labs and Meds Result diagrams: 05/21/20 07:56 05/21/20 07:56 Lab results: Laboratory Results - last 24 hr 05/20/20 05/20/20 05/20/20 20:20 20:20 20:20 WBC 11.3 H RBC 4.70 Hgb 14.3 Hct 43.2 MCV 91.9 MCH 30.4 MCHC 33.1 RDW 13.2 Plt Count 234 MPV 10.6 Immature Gran % (Auto) 0.3 Neut % (Auto) 53.3 Lymph % (Auto) 35.7 [place] % (Auto) 8.2 Eos % (Auto) 1.9 Baso % (Auto) 0.6 Lymph # (Auto) 4.0 [place] # (Auto) 0.9 Eos # (Auto) 0.2 Baso # (Auto) 0.1 Abs Immat Gran (auto) 0.03 Absolute Neuts (auto) 6.0 Absolute Nucleated RBC 0.000 Nucleated RBC % (auto) 0.0 PT 11.7 INR 1.0 APTT 35.1 Hold Blue Top SEE NOTE Sodium 140 Potassium 4.2 Chloride 104 Carbon Dioxide 29 Anion Gap 11 L BUN 19 H Creatinine 0.77 Estim Creat Clear Calc 137.2 Estimated GFR > 60 Random Glucose 113 Calcium 9.0 Troponin I High Sens Urine Color Urine Appearance Urine pH Ur Specific [place] Urine Protein Urine Glucose (UA) Urine Ketones Urine Blood Urine Nitrite Ur Leukocyte Esterase Urine RBC Urine WBC Ur Squamous Epith Cells Ur Renal Epithelial Cell Urine Bacteria Urine Mucus COVID-19 ([facility]) COVID-19 Clin Com 05/20/20 05/20/20 05/21/20 20:20 22:06 00:07 WBC RBC Hgb Hct MCV MCH MCHC RDW Plt Count MPV Immature Gran % (Auto) Neut % (Auto) Lymph % (Auto) [place] % (Auto) Eos % (Auto) Baso % (Auto) Lymph # (Auto) [place] # (Auto) Eos # (Auto) Baso # (Auto) Abs Immat Gran (auto) Absolute Neuts (auto) Absolute Nucleated RBC Nucleated RBC % (auto) PT INR APTT Hold Blue Top Sodium Potassium Chloride Carbon Dioxide Anion Gap BUN Creatinine Estim Creat Clear Calc Estimated GFR Random Glucose Calcium Troponin I High Sens 108.2 H 433.2 H D Urine Color YELLOW Urine Appearance CLEAR Urine pH 7.0 Ur Specific [place] 1.020 Urine Protein NEG Urine Glucose (UA) NEG Urine Ketones NEG Urine Blood NEG Urine Nitrite NEG Ur Leukocyte Esterase 1+ H Urine RBC 0-2 Urine WBC 10-14 H Ur Squamous Epith Cells TRACE Ur Renal Epithelial Cell TRACE Urine Bacteria NONE Urine Mucus 2+ COVID-19 ([facility]) COVID-19 Clin Com 05/21/20 05/21/20 05/21/20 02:10 07:56 07:56 WBC 7.6 RBC 4.70 Hgb 14.0 Hct 43.5 MCV 92.6 MCH 29.8 MCHC 32.2 RDW 13.3 Plt Count 236 MPV 10.5 Immature Gran % (Auto) 0.3 Neut % (Auto) 47.4 Lymph % (Auto) 41.9 H [place] % (Auto) 7.5 Eos % (Auto) 2.1 Baso % (Auto) 0.8 Lymph # (Auto) 3.2 [place] # (Auto) 0.6 Eos # (Auto) 0.2 Baso # (Auto) 0.1 Abs Immat Gran (auto) 0.02 Absolute Neuts (auto) 3.6 Absolute Nucleated RBC 0.000 Nucleated RBC % (auto) 0.0 PT INR APTT Hold Blue Top Sodium 138 Potassium 3.9 Chloride 105 Carbon Dioxide 29 Anion Gap 8 L BUN 17 H Creatinine 0.69 Estim Creat Clear Calc 90.3 Estimated GFR > 60 Random Glucose 127 H Calcium 8.6 Troponin I High Sens Urine Color Urine Appearance Urine pH Ur Specific [place] Urine Protein Urine Glucose (UA) Urine Ketones Urine Blood Urine Nitrite Ur Leukocyte Esterase Urine RBC Urine WBC Ur Squamous Epith Cells Ur Renal Epithelial Cell Urine Bacteria Urine Mucus COVID-19 ([facility]) Negative COVID-19 Clin Com See Note EKG shows normal sinus rhythm with right bundle-branch block without acute ischemic changes Imaging Radiologist's impression: Impressions Head CT 05/21/20 01:55 IMPRESSION: No acute intracranial pathology. Assessment and Plan (1) Acute coronary syndrome: Status: Acute Patient's presentation is consistent with acute coronary syndrome with positive troponin. Please continue to trend troponins until you see a down trend. Continue full oral anticoagulation. Other possibility includes stress-induced cardiomyopathy/takotsubo cardiomyopathy. Will obtain an echocardiogram to assess for LV systolic function with apical wall motion abnormality. If echo shows normal wall motion or atypical should undergo cardiac catheterization for acute plaque rupture. Continue management as such. Continue anticoagulation. Continue aspirin. High-intensity statin therapy with Lipitor 80 mg daily. Continue metoprolol and maximized to heart rate around 60 beats per minute. She is having mild chest pressure this morning, most likely anxiety/stress. However blood pressure is uncontrolled, see below start nitro paste. Can add Norvasc for blood pressure continues to remain uncontrolled. (2) Essential hypertension: Status: Acute Uncontrolled blood pressure most likely due to stress and anxiety. Consider addition of nitro paste 1 in q.6 hours. If blood pressure continues to remain elevated add Norvasc to her regimen. Low-salt diet. Will follow with the patient. Thank you for allowing us to partake in the care
--- NOTE | 2020-05-21 10:50 | P.PNIM_ITS ---
Subjective Subjective Date of Service: 05/21/20 Interval History: mild chest discomfort; much improved from yesterday no dyspnea Physical Exam Vital Signs: Vital Signs: Last Vital Signs Temp 97.5 F 05/21/20 10:05 Pulse 107 H 05/21/20 10:05 Resp 18 05/21/20 10:05 BP 170/90 H 05/21/20 10:05 Pulse Ox 96 05/21/20 10:05 Body Mass Index 44.6 Gen: in no acute distress HEENT: sclera anicteric, moist mucus membranes Neck: supple Lungs: clear to auscultation bilaterally Heart: regular rate and rhythm, no murmurs Abd: soft, non-tender, non-distended Ext: no edema Skin: warm/well-perfused Neuro: alert and oriented x3, no focal findings Psych: appropriate affect Objective Data Current Medications Generic Name Dose Route Start Last Admin Trade Name Freq PRN Reason Stop Dose Admin Acetaminophen 650 mg 05/21/20 01:33 Acetaminophen 325 Mg Tablet PO Q6H PRN Pain, Mild (Pain Scale 1-3) Aspirin 81 mg 05/21/20 10:25 Aspirin 81 Mg Tab.Chew PO DAILY [facility] Atorvastatin Calcium 80 mg 05/21/20 10:25 Atorvastatin Calcium 80 Mg Tablet PO DAILY [facility] Enoxaparin Sodium 110 mg 05/21/20 14:00 Enoxaparin Sodium 120 Mg/0.8 Ml Syringe SUBCUT Q12H [facility] Fluticasone Propionate 1 spray 05/21/20 09:00 Fluticasone Propionate Nasal 16 Gm [place] NOSTRIL-B BID [facility] Gabapentin 300 mg 05/21/20 09:00 Gabapentin 300 Mg Capsule PO BID [facility] Ceftriaxone Sodium 1 gm/ 50 mls @ 100 mls/hr 05/22/20 02:00 Sodium Chloride IV Q24H [facility] Insulin Human Lispro 0 unit 05/21/20 07:30 05/21/20 09:26 Insulin Lispro 100 Unit/Ml 3 Ml Vial SUBCUT Not Given QIDACHS [facility] Protocol Lidocaine 1 patch 05/21/20 09:00 Lidocaine 4 % Patch Adh..Patch TRANSDERMA DAILY [facility] Protocol Lisinopril 40 mg 05/21/20 09:00 Lisinopril 40 Mg Tablet PO DAILY [facility] Protocol Metformin HCl 750 mg 05/21/20 09:00 Metformin Hcl 500 Mg Tablet PO BID [facility] Metoprolol Tartrate 25 mg 05/21/20 09:00 Metoprolol Tartrate 25 Mg Tablet PO BID [facility] Protocol Multivitamins/Vitamin C 1 tab 05/21/20 09:00 Multivitamin Tablet PO DAILY [facility] Nitroglycerin 0.4 mg 05/21/20 01:33 Nitroglycerin 0.4 Mg Tab.Subl SUBLINGUAL Q5M PRN Chest Pain Nitroglycerin 1 inch 05/21/20 14:00 Nitroglycerin 2 % Oint 1 Gm Packet TRANSDERMA 05/22/20 14:01 RQ6H WHILE AWAKE [facility] Oxybutynin Chloride 5 mg 05/21/20 09:00 Oxybutynin Chloride Er 5 Mg Tab.Er.24 PO DAILY [facility] Paroxetine HCl 20 mg 05/21/20 09:00 Paroxetine Hcl 20 Mg Tablet PO DAILY [facility] Sodium Chloride 3 ml 05/21/20 08:00 05/21/20 09:27 0.9 % Sodium Chloride Flush 3 Ml Syringe IVFLUSH Not Given QSHIFT [facility] Labs CBC & Chem 7: 05/21/20 07:56 05/21/20 07:56 Labs: Laboratory Results - last 24 hr 05/20/20 05/20/20 05/20/20 20:20 20:20 20:20 WBC 11.3 H RBC 4.70 Hgb 14.3 Hct 43.2 MCV 91.9 MCH 30.4 MCHC 33.1 RDW 13.2 Plt Count 234 MPV 10.6 Immature Gran % (Auto) 0.3 Neut % (Auto) 53.3 Lymph % (Auto) 35.7 [place] % (Auto) 8.2 Eos % (Auto) 1.9 Baso % (Auto) 0.6 Lymph # (Auto) 4.0 [place] # (Auto) 0.9 Eos # (Auto) 0.2 Baso # (Auto) 0.1 Abs Immat Gran (auto) 0.03 Absolute Neuts (auto) 6.0 Absolute Nucleated RBC 0.000 Nucleated RBC % (auto) 0.0 PT 11.7 INR 1.0 APTT 35.1 Hold Blue Top SEE NOTE Sodium 140 Potassium 4.2 Chloride 104 Carbon Dioxide 29 Anion Gap 11 L BUN 19 H Creatinine 0.77 Estim Creat Clear Calc 137.2 Estimated GFR > 60 Random Glucose 113 Calcium 9.0 Troponin I High Sens Urine Color Urine Appearance Urine pH Ur Specific [place] Urine Protein Urine Glucose (UA) Urine Ketones Urine Blood Urine Nitrite Ur Leukocyte Esterase Urine RBC Urine WBC Ur Squamous Epith Cells Ur Renal Epithelial Cell Urine Bacteria Urine Mucus COVID-19 ([facility]) COVID-19 Clin Com 05/20/20 05/20/20 05/21/20 20:20 22:06 00:07 WBC RBC Hgb Hct MCV MCH MCHC RDW Plt Count MPV Immature Gran % (Auto) Neut % (Auto) Lymph % (Auto) [place] % (Auto) Eos % (Auto) Baso % (Auto) Lymph # (Auto) [place] # (Auto) Eos # (Auto) Baso # (Auto) Abs Immat Gran (auto) Absolute Neuts (auto) Absolute Nucleated RBC Nucleated RBC % (auto) PT INR APTT Hold Blue Top Sodium Potassium Chloride Carbon Dioxide Anion Gap BUN Creatinine Estim Creat Clear Calc Estimated GFR Random Glucose Calcium Troponin I High Sens 108.2 H 433.2 H D Urine Color YELLOW Urine Appearance CLEAR Urine pH 7.0 Ur Specific [place] 1.020 Urine Protein NEG Urine Glucose (UA) NEG Urine Ketones NEG Urine Blood NEG Urine Nitrite NEG Ur Leukocyte Esterase 1+ H Urine RBC 0-2 Urine WBC 10-14 H Ur Squamous Epith Cells TRACE Ur Renal Epithelial Cell TRACE Urine Bacteria NONE Urine Mucus 2+ COVID-19 ([facility]) COVID-19 Clin Com 05/21/20 05/21/20 05/21/20 02:10 07:56 07:56 WBC 7.6 RBC 4.70 Hgb 14.0 Hct 43.5 MCV 92.6 MCH 29.8 MCHC 32.2 RDW 13.3 Plt Count 236 MPV 10.5 Immature Gran % (Auto) 0.3 Neut % (Auto) 47.4 Lymph % (Auto) 41.9 H [place] % (Auto) 7.5 Eos % (Auto) 2.1 Baso % (Auto) 0.8 Lymph # (Auto) 3.2 [place] # (Auto) 0.6 Eos # (Auto) 0.2 Baso # (Auto) 0.1 Abs Immat Gran (auto) 0.02 Absolute Neuts (auto) 3.6 Absolute Nucleated RBC 0.000 Nucleated RBC % (auto) 0.0 PT INR APTT Hold Blue Top Sodium 138 Potassium 3.9 Chloride 105 Carbon Dioxide 29 Anion Gap 8 L BUN 17 H Creatinine 0.69 Estim Creat Clear Calc 90.3 Estimated GFR > 60 Random Glucose 127 H Calcium 8.6 Troponin I High Sens Urine Color Urine Appearance Urine pH Ur Specific [place] Urine Protein Urine Glucose (UA) Urine Ketones Urine Blood Urine Nitrite Ur Leukocyte Esterase Urine RBC Urine WBC Ur Squamous Epith Cells Ur Renal Epithelial Cell Urine Bacteria Urine Mucus COVID-19 ([facility]) Negative COVID-19 Clin Com See Note Assessment and Plan (1) NSTEMI (non-ST elevated myocardial infarction): Status: Acute Assessment and Plan: hospital d#1 69yo F with HTN, PSVT, DM2 presented with chest pain, admitted for Tn-I elevation concerning for NSTEMI vs takotsubo cardiomyopathy # NSTEMI - Cardiology consulted. TTE pending. LMWH. ASA, metoprolol, statin, nitroglycerin paste. may require cardiac cath pending TTE results. # HTN - continue metoprolol + lisinopril + NTG; to consider adding amlodipine if needed # DM2 - check A1c, correction-dose lispro, hold MTF # UTI - ceftriaxone d#1, follow UCx # VTE ppx - LMWH
[2020-05-21] MEDS: Gabapentin 300 MG CAPSULE PO ×2 (10:54→21:02)
[2020-05-21] MEDS: metFORMIN HCl 500 MG TABLET 750 MG PO (10:54)
[2020-05-21] MEDS: Atorvastatin Calcium 80 MG TABLET PO (10:55)
[2020-05-21] MEDS: Aspirin 81 MG TAB.CHEW PO (10:55)
[2020-05-21] MEDS: lisinopriL 40 MG TABLET PO (10:56)
[2020-05-21] MEDS: PARoxetine HCL 20 MG TABLET PO (10:57)
[2020-05-21] MEDS: Metoprolol Tartrate 25 MG TABLET PO ×2 (10:57→21:02)
[2020-05-21] MEDS: Multivitamin TABLET 1 TAB PO (10:57)
[2020-05-21] MEDS: Lidocaine 4 % Patch ADH..PATCH 1 PATCH TRANSDERMA (10:58)
--- NOTE | 2020-05-21 11:30 | CA_ITS ---
Transthoracic Echocardiogram Patient (Last, First, Middle): Joi Dennis, Gender: Female Date of : 1950 Age: 69 Procedure Date: 05/21/2020 Procedure Type: Transthoracic Echocardiogram Location: [facility] [place] Height: 157.48 cm Weight: 110.68 kg BSA: 2.08 m2 Heart Rate: bpm BP: 173 / 60 mmHg Chucking Lathe Operator: Referring MD: Boris Melendez MD Bundle Sorter: William Hernandez MD Symptoms: elevated trops; Stress at home; Chest pain; Study Quality: Fair ECG Rhythm: Sinus Conclusions: - 1. Normal LV systolic function with impaired relaxation filling pattern 2. Mild mitral annular calcification with normal cardiac valvular Doppler 3. Normal RV systolic pressure 4. No pericardial effusion Findings Left Ventricle Normal left ventricular size and systolic function. There is mildly increased left ventricular wall thickness. The visually estimated ejection fraction is between 60-65%. Spectral Doppler is indicative of an impaired relaxation filling pattern. E/E prime ratio is between 8 and 15 consistent with indeterminate filling pressures. Right Ventricle Normal right ventricular cavity size and systolic function. Atria The left atrium is mildly dilated. Interatrial shunt cannot be excluded. The right atrium is normal in size. Aortic Valve There is mild calcification of the aortic valve. There is no aortic valve stenosis. There is no aortic valve regurgitation. Mitral Valve There is mild anterior mitral leaflet thickening. There is mild mitral annular calcification. There is trace mitral valve regurgitation. There is no mitral valve stenosis. Pulmonic Valve The pulmonic valve was not well visualized. Tricuspid Valve Likely normal tricuspid valve structure and function. There is trace tricuspid valve regurgitation. The right ventricular systolic pressure is normal. The right ventricular systolic pressure is 13 mmHg. Normal right atrial pressure. There is no evidence of pulmonary hypertension. Great Vessels All visible segments of the aorta are normal in size. The pulmonary artery was not well visualized. Venous The inferior vena cava is normal in size and collapses greater than 50% with inspiration. Pericardium/Pleural There is no evidence of pericardial effusion. Prior Study Comparison No significant change compared to prior study dated: 02/22/2019. Measurements 2D Linear Measurements IVSd: 1.23 0.6-0.9/0.6-1.0 cm LVIDd: 4.56 3.9-5.3/4.2-5.9 cm LVIDd Index: 2.19 2.4-3.2/2.2-3.1 cm/m2 LVIDs: 2.73 2.0-3.6 cm LVPWd: 1.28 0.7-1.1 cm Ao Root: 2.80 2.1-3.5 cm LA Diam: 5.00 2.7-3.8/3.0-4.0 cm LAIDs Index: 2.40 1.5-2.3 cm/m2 LV Mass: 268.92 67-162/88-224 g LV Mass Index: 129.29 43-95/49-115 g/m2 LVOT Diam: 2.00 3.0+(-)1.3 cm 2D Systolic Function EF 4C: 69.80 >55% EF 2C: 55.00 >55% EF BiP: 64.10 >55% Mitral Valve MV Pk E: 0.60 MV PK A: 1.00 MV Decel Time: 274.00 E/A: 0.60 E'Lateral: 5.90 E'Medial: 3.96 E/E' Med: 15.20 E/E' Lat: 10.20 PHT: 80.00 MVA PHT: 2.75 Decel Hayes: 2.19 Aortic Valve AoV Pk Will: 1.61 AoV Mn Will: 0.99 AoV VTI: 0.37 AoV Pk Grad: 10.00 Aov Mn Grad: 5.00 ALANA Cont.VTI: 2.93 LVOT LVOT Pk Will: 1.18 LVOT Mn Will: 0.75 LVOT VTI: 0.35 LVOT Pk Grad: 6.00 LVOT Mn Grad: 3.00 LVOT Diam: 2.00 LVOT Area: 3.14 Diastolic Function MV Pk E: 0.60 MV Pk A: 1.00 E/A: 0.60 E'Medial: 3.96 E/E' Med: 15.20 E' Laterial: 5.90 E/E' Lat: 10.20 Tricuspid Valve TR Pk Will: 1.59 TR Pk Grad: 10.00 RA Press: 3.00 RVSP: 13.00 Great Vessels Aorta Ao Root-2D: 2.80 2.0-3.7 cm Ao Asc: 3.00 2.1-3.4 cm Pulmonary Valve PV Pk Will: 1.25 Peak PV Grad: 6.00 Updated in Other Vendor System with Status of Final William Hernandez MD electronically signed on 05/21/2020 12:43:18 PM with status of Final
[2020-05-21 11:36] LABS: Troponin-I High Sensitivity 220.4 ng/L (<3.5-17.0)
[2020-05-21 12:09] LABS: Glucose, Whole Blood 107 mg/dL (60-115)
[2020-05-21 12:22] LABS: Estimated Average Glucose 166 mg/dL; Hemoglobin A1c % 7.4 %
[2020-05-21] MEDS: Enoxaparin Sodium 120 MG/0.8 ML SYRINGE 110 MG SUBCUT (15:24)
[2020-05-21] MEDS: Nitroglycerin 2 % Oint 1 GM Packet 1 INCH TRANSDERMA ×2 (15:24→21:05)
[2020-05-21] MEDS: 0.9 % Sodium Chloride Flush 3 ML SYRINGE IVFLUSH ×2 (15:28→21:05)
[2020-05-21 16:12] LABS: Glucose, Whole Blood 78 mg/dL (60-115)
[2020-05-21 20:31] LABS: Glucose, Whole Blood 87 mg/dL (60-115)
[2020-05-22 03:19] VITALS: BP 165/74; PULSE 62; RESP 16; TEMP 36.2; O2SAT 93
[2020-05-22] MEDS: Enoxaparin Sodium 120 MG/0.8 ML SYRINGE 110 MG SUBCUT (03:22)
[2020-05-22] MEDS: cefTRIAXone sodium 1 GM in 0.9 % Sodium Chloride 50 ML IV (03:23)
[2020-05-22 06:54] LABS: Cholesterol 155 mg/dL; HDL Cholesterol 33 mg/dL; LDL Cholesterol Calculated 79 mg/dl; Triglycerides 216 mg/dL
[2020-05-22 07:36] VITALS: BP 155/61; PULSE 64; RESP 16; TEMP 36.2; O2SAT 93
[2020-05-22 07:45] LABS: Glucose, Whole Blood 108 mg/dL (60-115)
[2020-05-22] MEDS: 0.9 % Sodium Chloride Flush 3 ML SYRINGE IVFLUSH (07:58)
[2020-05-22] MEDS: Nitroglycerin 2 % Oint 1 GM Packet 1 INCH TRANSDERMA (08:00)
[2020-05-22] MEDS: Fluticasone Propionate Nasal 16 GM SPRAY 1 SPRAY NOSTRIL-B (08:01)
[2020-05-22 08:02] VITALS: BP 155/61; PULSE 64
[2020-05-22] MEDS: PARoxetine HCL 20 MG TABLET PO (08:02)
[2020-05-22] MEDS: Aspirin 81 MG TAB.CHEW PO (08:02)
[2020-05-22] MEDS: Atorvastatin Calcium 80 MG TABLET PO (08:02)
[2020-05-22] MEDS: Multivitamin TABLET 1 TAB PO (08:02)
[2020-05-22] MEDS: amLODIPine Besylate 5 MG TABLET PO (08:02)
[2020-05-22] MEDS: Metoprolol Tartrate 25 MG TABLET PO (08:02)
[2020-05-22 08:03] VITALS: BP 155/61; PULSE 64
[2020-05-22] MEDS: Gabapentin 300 MG CAPSULE PO (08:03)
[2020-05-22] MEDS: Lidocaine 4 % Patch ADH..PATCH 1 PATCH TRANSDERMA (08:03)
[2020-05-22] MEDS: lisinopriL 40 MG TABLET PO (08:03)
--- NOTE | 2020-05-22 09:56 | PM.PNCARD ---
Subjective Subjective Date of Service: 05/22/20 <LEILA Dc - Last Filed: 05/22/20 10:08> 05/22/20 <William Hernandez MD - Last Filed: 05/22/20 12:29> Principal diagnosis: CP, NSTEMI <LEILA Dc - Last Filed: 05/22/20 10:08> Interval history: Cardiology follow up for NSTEMI. Seen at 0920. Today she reports feeling well with no recurrent CP. No sob, palpitation. No presyncope, PND,orthopnea or edema. Sitting up in chair. Did not sleep well. Aware of planned transfer to [facility] and she is agreeable. <LEILA Dc - Last Filed: 05/22/20 10:08> Physical Exam Vital Signs: Last Vital Signs Temp 97.2 F 05/22/20 07:36 Pulse 64 05/22/20 08:03 Resp 16 05/22/20 07:36 BP 155/61 H 05/22/20 08:03 Pulse Ox 93 05/22/20 07:36 Body Mass Index 44.6 <LEILA Dc - Last Filed: 05/22/20 10:08> Const General: cooperative, healthy appearing, no acute distress, alert and awake <LEILA Dc - Last Filed: 05/22/20 10:08> Orientation/consciousness: patient oriented x3 <LEILA Dc - Last Filed: 05/22/20 10:08> Neck Neck: Yes normal visual inspection and Yes no JVD <LEILA Dc - Last Filed: 05/22/20 10:08> Resp Effort & Inspection: normal respiratory effort, able to speak in complete sentences and not labored <LEILA Dc - Last Filed: 05/22/20 10:08> Auscultation: clear to auscultation bilaterally, no crackles, no rales, no rhonchi and no wheezes <LEILA Dc - Last Filed: 05/22/20 10:08> Cardio Jugular venous distension: JVD present <LEILA Dc - Last Filed: 05/22/20 10:08> Rate: regular rate <Malaika JoKOKIC - Last Filed: 05/22/20 10:08> Rhythm: regular rhythm <Malaika Gongora KOKI JoC - Last Filed: 05/22/20 10:08> Heart sounds: S1 normal heart sound present and S2 normal heart sound present <Malaika Fransisca KOKI JoC - Last Filed: 05/22/20 10:08> GI Inspection: Yes normal to inspection <Malaika Fransisca KOKI JoC - Last Filed: 05/22/20 10:08> Neuro General: patient oriented x3 <Malaika Fransisca KOKI JoC - Last Filed: 05/22/20 10:08> Extrem General: Yes normal to inspection and No edema <Malaika Fransisca LEILA Jo - Last Filed: 05/22/20 10:08> Results Labs and Meds Result diagrams: : 05/21/20 07:56 05/21/20 07:56 <Malaika Fransisca KOKI JoC - Last Filed: 05/22/20 10:08> Lab results: Laboratory Results - last 24 hr 05/21/20 05/21/20 05/21/20 10:36 11:32 12:05 POC Glucose 107 Estimat Average Glucose 166 Hemoglobin A1c % 7.4 Troponin I High Sens 220.4 H Triglycerides Cholesterol LDL Cholesterol, Calc HDL Cholesterol 05/21/20 05/21/20 05/22/20 16:02 20:22 05:56 POC Glucose 78 87 Estimat Average Glucose Hemoglobin A1c % Troponin I High Sens Triglycerides 216 Cholesterol 155 D LDL Cholesterol, Calc 79 HDL Cholesterol 33 05/22/20 07:38 POC Glucose 108 Estimat Average Glucose Hemoglobin A1c % Troponin I High Sens Triglycerides Cholesterol LDL Cholesterol, Calc HDL Cholesterol <Malaika Gongora KOKI JoC - Last Filed: 05/22/20 10:08> Imaging Radiologist's impression: Impressions Chest X-Ray 05/21/20 10:50 IMPRESSION: No evidence for acute disease in the chest. <LEILA Dc - Last Filed: 05/22/20 10:08> Progress Note: A&P Assessment and plan (1) NSTEMI (non-ST elevated myocardial infarction): Status: Acute <LEILA Dc - Last Filed: 05/22/20 10:08> Assessment and Plan: Admit with CP. Trop grady > 50%. EKG with RBBB, no acute changes. NSTEMI. Multi cardiac risk factors. Medically managed with aspirin, high dose statin, Lovenox for anticoagulation, Metoprolol. Echo shows normal EF, no regional WMA. Condition remains stable this am. No recurrent discomfort. Hx of cardiac cath 2010 showing normal coronaries. Will transfer to [facility] and plan for cardiac cath tomorrow with Dr Rene. Procedure/ risks reviewed with her. She is agreeable to this plan. Call placed to [facility] hospitalist and gave report. They will call when bed is available. We will arrange for cath procedure. ( no contrast dye allergy, Cr 0.69) <LEILA Dc - Last Filed: 05/22/20 10:08> (2) Chest pain: Status: Acute <LEILA Dc - Last Filed: 05/22/20 10:08> (3) Essential hypertension: Status: Acute <LEILA Dc - Last Filed: 05/22/20 10:08> Assessment and Plan: Mild elevation this am. Continue to follow. Continue Amlodipine, Lisinopril, Metoprolol, NTP. <LEILA Dc - Last Filed: 05/22/20 10:08> (4) Hyperlipidemia: Status: Acute <LEILA Dc - Last Filed: 05/22/20 10:08> Assessment and Plan: Started on high dose statin due to NSTEMI. LDL 79. <LEILA Dc - Last Filed: 05/22/20 10:08> (5) Diabetes type 2, controlled: Status: Acute <LEILA Dc Last Filed: 05/22/20 10:08> Assessment and Plan: Cardiac risk factor <LEILA Dc - Last Filed: 05/22/20 10:08> (6) Acute coronary syndrome: Status: Acute <LEILA Dc - Last Filed: 05/22/20 10:08> Assessment and Plan: Patient seen and case discussed with Malaika Jo. Echocardiogram yesterday showed no wall motion abnormality. Patient has had no recurrent chest discomfort. No shortness of breath. Being treated for acute coronary syndrome with full anticoagulation, aspirin, high-intensity statin therapy as well as nitro paste, metoprolol and lisinopril. Blood pressure is better optimized. Continue current therapy. Transfer to [facility] for cardiac catheterization. Patient explained risks, benefits, alternatives and 2nd opinion procedure. She is agreeable. <William Hernandez MD - Last Filed: 05/22/20 12:29> Fall Risk Details Current Medications: Current Medications Generic Name Dose Route Start Last Admin Trade Name Freq PRN Reason Stop Dose Admin Acetaminophen 650 mg 05/21/20 01:33 Acetaminophen 325 Mg Tablet PO Q6H PRN Pain, Mild (Pain Scale 1-3) Amlodipine Besylate 5 mg 05/22/20 09:00 05/22/20 08:02 Amlodipine Besylate 5 Mg Tablet PO 5 mg DAILY ALONZO Administration Protocol Aspirin 81 mg 05/21/20 10:25 05/22/20 08:02 Aspirin 81 Mg Tab.Chew PO 81 mg DAILY ALONZO Administration Atorvastatin Calcium 80 mg 05/21/20 10:25 05/22/20 08:02 Atorvastatin Calcium 80 Mg Tablet PO 80 mg DAILY ALONZO Administration Enoxaparin Sodium 110 mg 05/21/20 14:00 05/22/20 03:22 Enoxaparin Sodium 120 Mg/0.8 Ml Syringe SUBCUT 110 mg Q12H ALONZO Administration Fluticasone Propionate 1 spray 05/21/20 09:00 05/22/20 08:01 Fluticasone Propionate Nasal 16 Gm [place] NOSTRIL-B 1 spray BID ALONZO Administration Gabapentin 300 mg 05/21/20 09:00 05/22/20 08:03 Gabapentin 300 Mg Capsule PO 300 mg BID ALONZO Administration Ceftriaxone Sodium 1 gm/ 50 mls @ 100 mls/hr 05/22/20 02:00 05/22/20 04:01 Sodium Chloride IV Infused Q24H ALONZO Infusion Insulin Human Lispro 0 unit 05/21/20 07:30 05/22/20 07:53 Insulin Lispro 100 Unit/Ml 3 Ml Vial SUBCUT Not Given QIDACHS [facility] Protocol Lidocaine 1 patch 05/21/20 09:00 05/22/20 08:03 Lidocaine 4 % Patch Adh..Patch TRANSDERMA 1 patch DAILY ALONZO Administration Protocol Lisinopril 40 mg 05/21/20 09:00 05/22/20 08:03 Lisinopril 40 Mg Tablet PO 40 mg DAILY ALONZO Administration Protocol Metoprolol Tartrate 25 mg 05/21/20 09:00 05/22/20 08:02 Metoprolol Tartrate 25 Mg Tablet PO 25 mg BID ALONZO Administration Protocol Multivitamins/Vitamin C 1 tab 05/21/20 09:00 05/22/20 08:02 Multivitamin Tablet PO 1 tab DAILY ALONZO Administration Nitroglycerin 0.4 mg 05/21/20 01:33 Nitroglycerin 0.4 Mg Tab.Subl SUBLINGUAL Q5M PRN Chest Pain Nitroglycerin 1 inch 05/21/20 14:00 05/22/20 08:00 Nitroglycerin 2 % Oint 1 Gm Packet TRANSDERMA 05/22/20 14:01 1 inch RQ6H WHILE AWAKE ALONZO Administration Oxybutynin Chloride 5 mg 05/21/20 09:00 05/22/20 08:02 Oxybutynin Chloride Er 5 Mg Tab.Er.24 PO 5 mg DAILY ALONZO Administration Paroxetine HCl 20 mg 05/21/20 09:00 05/22/20 08:02 Paroxetine Hcl 20 Mg Tablet PO 20 mg DAILY ALONZO Administration Sodium Chloride 3 ml 05/21/20 08:00 05/22/20 07:58 0.9 % Sodium Chloride Flush 3 Ml Syringe IVFLUSH 3 ml QSHIFT ALONZO Administration <LEILA Dc - Last Filed: 05/22/20 10:08> Time Spent With Patient Time: Total time spent is greater than 50% in coordination of care (as documented) at patient's floor/unit and/or counseling patient: 20 <LEILA Dc - Last Filed: 05/22/20 10:08> Time with patient: 15 - 24 minutes <LEILA Dc - Last Filed: 05/22/20 10:08>
--- NOTE | 2020-05-22 10:49 | PM.DS ---
DS: Providers Provider Date of Service: 05/22/20 Date of admission: 05/21/20 01:33 Primary care physician: Obdulio Sabillon MD Consults: 05/21/20 01:33 Consult to Cardiology Stat Consulting Provider: William Hernandez Reason for consultation: NSTEMI DS: Transfer Hospital Acceptance Reason for Transfer: cardiac catheterization Name of Facility: [facility] DS: Diagnosis Discharge Diagnosis (1) NSTEMI (non-ST elevated myocardial infarction): Status: Acute (2) Chest pain: Status: Acute (3) Essential hypertension: Status: Acute (4) Hyperlipidemia: Status: Acute (5) Diabetes type 2, controlled: Status: Acute (6) Urinary tract infection: Status: Acute DS: Medications Discharge Medications Home Medications: Home Medications Medication Instructions Recorded Confirmed lisinopril 40 mg tablet 40 mg PO DAILY 01/19/20 05/20/20 paroxetine HCl 20 mg tablet 20 mg PO DAILY 01/19/20 05/20/20 multivitamin 1 tab PO DAILY 03/18/20 05/20/20 aspirin 81 mg tablet,delayed 81 mg PO DAILY 05/14/20 05/20/20 release gabapentin 300 mg PO BID 05/20/20 05/20/20 metformin 750 mg PO DAILY 05/20/20 05/21/20 Previous Rx's Medication Instructions Recorded metoprolol tartrate 25 mg tablet 25 mg PO BID #180 tab 02/27/20 oxybutynin chloride 5 mg tablet 5 mg PO DAILY 90 Days #90 tab 03/17/20 fluticasone propionate 50 1 spray INTRANASAL BID 30 Days #16 04/24/20 mcg/actuation nasal g spray,suspension acetaminophen 300 mg-codeine 30 mg 1 - 2 tab PO Q8H PRN #20 tab 05/14/20 tablet amlodipine 5 mg PO DAILY #1 tab 05/22/20 atorvastatin 80 mg PO DAILY #1 ea 05/22/20 ceftriaxone 1 g IV Q24H #1 ea 05/22/20 enoxaparin 110 mg SUBCUT Q12H #0.8 ml 05/22/20 insulin lispro [Humalog U-100 See Protocol SUBCUT QIDACHS #1 ml 05/22/20 Insulin] nitroglycerin [Nitro-Bid] 1 inch TRANSDERMAL RQ6H WHILE 05/22/20 AWAKE #1 g nitroglycerin [Nitrostat] 0.4 mg SUBLINGUAL Q5M PRN #1 tab 05/22/20 DS: Summary Hospital Course Hospital Course: from admission history and physical by Boris Melendez, 05/20/20: 69-year-old female with a past medical history of hypertension, diabetes, anxiety, depression presented to the hospital with a chief complaint of chest pain. Patient reports that she has been under stress lately as she lost her son about 2 weeks ago and her about few months ago. Lives alone. Alone 3:00 p.m. this afternoon she had chest pain pressure like in nature nonradiating no associated nausea or diaphoresis; at the same time she had headaches; denies any numbness tingling or focal weakness. And when she checked her blood pressure it was elevated took her metoprolol. Headache started to improve slightly but chest pain was still persistent hence decided to come to the ER for further evaluation. Denies any fever chills cough. Denies any recent travel sick contacts. At the time of my interview patient reported that her chest pain improved. Headache improving. Denied any complaints. Review of all other systems is negative except mentioned above ER course: Per ER team EKG showed RBBB, troponin was elevated from 03/15 2433. Chest pain improved. Patient was given aspirin. Discussed with Dr. hernandez from Cardiology who recommended to start on anticoagulation with Lovenox and admitted to the [facility] for further evaluation in the morning. The patient was admitted to the [facility] and anticoagulated with enoxaparin. She was given aspirin, metoprolol, high-intensity statin, and nitroglycerin paste. Amlodipine was added for better blood pressure control. Chest pain resolved. Echocardiography showed normal LV systolic function with impaired relaxation. There were no wall motion abnormalities. Cardiology was consulted and she was transferred to [facility] for cardiac catheterization. Time Spent with Patient Time attestation: Total time spent providing and/or coordinating discharge services: 35 Discharge coordination time: Greater than 30 minutes Physical Exam Vital Signs: Vital Signs: Last Vital Signs Temp 97.2 F 05/22/20 07:36 Pulse 64 05/22/20 08:03 Resp 16 05/22/20 07:36 BP 155/61 H 05/22/20 08:03 Pulse Ox 93 05/22/20 07:36 Body Mass Index 44.6 Gen: in no acute distress HEENT: sclera anicteric, moist mucus membranes Neck: supple Lungs: clear to auscultation bilaterally Heart: regular rate and rhythm, no murmurs Abd: soft, obese, non-tender, non-distended Ext: no edema Skin: warm/well-perfused Neuro: alert and oriented x3, no focal findings Psych: appropriate affect DS: Data Data Completed and Pending Labs on day of discharge: Laboratory Tests 05/20/20 05/20/20 05/20/20 20:20 20:20 20:20 WBC 11.3 H RBC 4.70 Hgb 14.3 Hct 43.2 MCV 91.9 MCH 30.4 MCHC 33.1 RDW 13.2 Plt Count 234 MPV 10.6 Immature Gran % (Auto) 0.3 Neut % (Auto) 53.3 Lymph % (Auto) 35.7 [place] % (Auto) 8.2 Eos % (Auto) 1.9 Baso % (Auto) 0.6 Lymph # (Auto) 4.0 [place] # (Auto) 0.9 Eos # (Auto) 0.2 Baso # (Auto) 0.1 Abs Immat Gran (auto) 0.03 Absolute Neuts (auto) 6.0 Absolute Nucleated RBC 0.000 Nucleated RBC % (auto) 0.0 PT 11.7 INR 1.0 APTT 35.1 Hold Blue Top SEE NOTE Sodium 140 Potassium 4.2 Chloride 104 Carbon Dioxide 29 Anion Gap 11 L BUN 19 H Creatinine 0.77 Estim Creat Clear Calc 137.2 Estimated GFR > 60 POC Glucose Random Glucose 113 Estimat Average Glucose Hemoglobin A1c % Calcium 9.0 Troponin I High Sens Triglycerides Cholesterol LDL Cholesterol, Calc HDL Cholesterol Urine Color Urine Appearance Urine pH Ur Specific [place] Urine Protein Urine Glucose (UA) Urine Ketones Urine Blood Urine Nitrite Ur Leukocyte Esterase Urine RBC Urine WBC Ur Squamous Epith Cells Ur Renal Epithelial Cell Urine Bacteria Urine Mucus COVID-19 (MARIBEL) COVID-19 Clin Com 05/20/20 05/20/20 05/21/20 20:20 22:06 00:07 WBC RBC Hgb Hct MCV MCH MCHC RDW Plt Count MPV Immature Gran % (Auto) Neut % (Auto) Lymph % (Auto) [place] % (Auto) Eos % (Auto) Baso % (Auto) Lymph # (Auto) [place] # (Auto) Eos # (Auto) Baso # (Auto) Abs Immat Gran (auto) Absolute Neuts (auto) Absolute Nucleated RBC Nucleated RBC % (auto) PT INR APTT Hold Blue Top Sodium Potassium Chloride Carbon Dioxide Anion Gap BUN Creatinine Estim Creat Clear Calc Estimated GFR POC Glucose Random Glucose Estimat Average Glucose Hemoglobin A1c % Calcium Troponin I High Sens 108.2 H 433.2 H D Triglycerides Cholesterol LDL Cholesterol, Calc HDL Cholesterol Urine Color YELLOW Urine Appearance CLEAR Urine pH 7.0 Ur Specific [place] 1.020 Urine Protein NEG Urine Glucose (UA) NEG Urine Ketones NEG Urine Blood NEG Urine Nitrite NEG Ur Leukocyte Esterase 1+ H Urine RBC 0-2 Urine WBC 10-14 H Ur Squamous Epith Cells TRACE Ur Renal Epithelial Cell TRACE Urine Bacteria NONE Urine Mucus 2+ COVID-19 (MARIBEL) COVID-19 [employer] Com 05/21/20 05/21/20 05/21/20 02:10 07:56 07:56 WBC 7.6 RBC 4.70 Hgb 14.0 Hct 43.5 MCV 92.6 MCH 29.8 MCHC 32.2 RDW 13.3 Plt Count 236 MPV 10.5 Immature Gran % (Auto) 0.3 Neut % (Auto) 47.4 Lymph % (Auto) 41.9 H [place] % (Auto) 7.5 Eos % (Auto) 2.1 Baso % (Auto) 0.8 Lymph # (Auto) 3.2 [place] # (Auto) 0.6 Eos # (Auto) 0.2 Baso # (Auto) 0.1 Abs Immat Gran (auto) 0.02 Absolute Neuts (auto) 3.6 Absolute Nucleated RBC 0.000 Nucleated RBC % (auto) 0.0 PT INR APTT Hold Blue Top Sodium 138 Potassium 3.9 Chloride 105 Carbon Dioxide 29 Anion Gap 8 L BUN 17 H Creatinine 0.69 Estim Creat Clear Calc 90.3 Estimated GFR > 60 POC Glucose Random Glucose 127 H Estimat Average Glucose Hemoglobin A1c % Calcium 8.6 Troponin I High Sens Triglycerides Cholesterol LDL Cholesterol, Calc HDL Cholesterol Urine Color Urine Appearance Urine pH Ur Specific [place] Urine Protein Urine Glucose (UA) Urine Ketones Urine Blood Urine Nitrite Ur Leukocyte Esterase Urine RBC Urine WBC Ur Squamous Epith Cells Ur Renal Epithelial Cell Urine Bacteria Urine Mucus COVID-19 (MARIBEL) Negative COVID-19 Clin Com See Note 05/21/20 05/21/20 05/21/20 10:36 11:32 12:05 WBC RBC Hgb Hct MCV MCH MCHC RDW Plt Count MPV Immature Gran % (Auto) Neut % (Auto) Lymph % (Auto) [place] % (Auto) Eos % (Auto) Baso % (Auto) Lymph # (Auto) [place] # (Auto) Eos # (Auto) Baso # (Auto) Abs Immat Gran (auto) Absolute Neuts (auto) Absolute Nucleated RBC Nucleated RBC % (auto) PT INR APTT Hold Blue Top Sodium Potassium Chloride Carbon Dioxide Anion Gap BUN Creatinine Estim Creat Clear Calc Estimated GFR POC Glucose 107 Random Glucose Estimat Average Glucose 166 Hemoglobin A1c % 7.4 Calcium Troponin I High Sens 220.4 H Triglycerides Cholesterol LDL Cholesterol, Calc HDL Cholesterol Urine Color Urine Appearance Urine pH Ur Specific [place] Urine Protein Urine Glucose (UA) Urine Ketones Urine Blood Urine Nitrite Ur Leukocyte Esterase Urine RBC Urine WBC Ur Squamous Epith Cells Ur Renal Epithelial Cell Urine Bacteria Urine Mucus COVID-19 (MARIBEL) COVID-[employer] 05/21/20 05/21/20 05/22/20 16:02 20:22 05:56 WBC RBC Hgb Hct MCV MCH MCHC RDW Plt Count MPV Immature Gran % (Auto) Neut % (Auto) Lymph % (Auto) [place] % (Auto) Eos % (Auto) Baso % (Auto) Lymph # (Auto) [place] # (Auto) Eos # (Auto) Baso # (Auto) Abs Immat Gran (auto) Absolute Neuts (auto) Absolute Nucleated RBC Nucleated RBC % (auto) PT INR APTT Hold Blue Top Sodium Potassium Chloride Carbon Dioxide Anion Gap BUN Creatinine Estim Creat Clear Calc Estimated GFR POC Glucose 78 87 Random Glucose Estimat Average Glucose Hemoglobin A1c % Calcium Troponin I High Sens Triglycerides 216 Cholesterol 155 D LDL Cholesterol, Calc 79 HDL Cholesterol 33 Urine Color Urine Appearance Urine pH Ur Specific [place] Urine Protein Urine Glucose (UA) Urine Ketones Urine Blood Urine Nitrite Ur Leukocyte Esterase Urine RBC Urine WBC Ur Squamous Epith Cells Ur Renal Epithelial Cell Urine Bacteria Urine Mucus COVID-19 (MARIBEL) COVID-19 [employer] 05/22/20 07:38 WBC RBC Hgb Hct MCV MCH MCHC RDW Plt Count MPV Immature Gran % (Auto) Neut % (Auto) Lymph % (Auto) [place] % (Auto) Eos % (Auto) Baso % (Auto) Lymph # (Auto) [place] # (Auto) Eos # (Auto) Baso # (Auto) Abs Immat Gran (auto) Absolute Neuts (auto) Absolute Nucleated RBC Nucleated RBC % (auto) PT INR APTT Hold Blue Top Sodium Potassium Chloride Carbon Dioxide Anion Gap BUN Creatinine Estim Creat Clear Calc Estimated GFR POC Glucose 108 Random Glucose Estimat Average Glucose Hemoglobin A1c % Calcium Troponin I High Sens Triglycerides Cholesterol LDL Cholesterol, Calc HDL Cholesterol Urine Color Urine Appearance Urine pH Ur Specific [place] Urine Protein Urine Glucose (UA) Urine Ketones Urine Blood Urine Nitrite Ur Leukocyte Esterase Urine RBC Urine WBC Ur Squamous Epith Cells Ur Renal Epithelial Cell Urine Bacteria Urine Mucus COVID-19 (MARIBEL) COVID-19 Clin Com ITS Impressions Head CT 05/21/20 01:55 IMPRESSION: No acute intracranial pathology. Chest X-Ray 05/21/20 10:50 IMPRESSION: No evidence for acute disease in the chest. TTE 05/21/20 1. Normal LV systolic function with impaired relaxation filling pattern 2. Mild mitral annular calcification with normal cardiac valvular Doppler 3. Normal RV systolic pressure 4. No pericardial effusion Discharge Plan Discharge Anticipated Discharge Date/Time: 05/22/20 10:44 Patient Disposition: Xfer Acute [facility] Referrals: [facility] [Outside] Obdulio Sabillon MD [Primary Care Provider] - William Hernandez MD [Physician] - Discharge Medications: New ceftriaxone 1 gram Recon Soln 1 g IV Q24H Qty: 1 RF: 0 enoxaparin 120 mg/0.8 mL Syringe 110 mg subcut Q12H Qty: 0.8 RF: 0 atorvastatin 80 mg Tablet 80 mg PO DAILY Qty: 1 RF: 0 amlodipine 5 mg Tablet 5 mg PO DAILY Qty: 1 RF: 0 nitroglycerin [Nitrostat] 0.4 mg Tablet, Sublingual 0.4 mg sublingual Q5M PRN (Reason: Chest Pain) Qty: 1 RF: 0 Nitro-Bid 2 % Ointment 1 inch transdermal RQ6H WHILE AWAKE Qty: 1 RF: 0 insulin lispro [Humalog U-100 Insulin] 100 unit/mL Solution See Protocol unit subcut QIDACHS Qty: 1 RF: 0 Continued metoprolol tartrate 25 mg tablet 25 mg PO BID Qty: 180 RF: 3 oxybutynin chloride 5 mg tablet 5 mg PO DAILY 90 Days Qty: 90 RF: 3 multivitamin Tablet 1 tab PO DAILY RF: 0 gabapentin 300 mg capsule 300 mg PO BID RF: 0 fluticasone propionate [Flonase Allergy Relief] 50 mcg/actuation spray,suspension 1 spray intranasal BID 30 Days Qty: 16 RF: 3 lisinopril 40 mg tablet 40 mg PO DAILY RF: 0 paroxetine HCl 20 mg tablet 20 mg PO DAILY RF: 0 acetaminophen-codeine 300-30 mg tablet 1 - 2 tab PO Q8H PRN (Reason: pain) Qty: 20 RF: 0 Held metformin 500 mg tablet 750 mg PO DAILY RF: 0 Hold Instructions: Resume on 05/29/20. Discontinued chlorthalidone 50 mg tablet 50 mg PO DAILY RF: 0 Discharge Orders: Discharge Order (Routine); Ordered 05/22/20 Ordered By: Coleman Sharma Diet: diabetic diet, low fat, low cholesterol and low salt diet Activity on Discharge: Rest with bed elevated Stand Alone Forms: Patient Portal Discharge page Care Plan Goals: relief of chest pain diagnosis of any underlying coronary disease Health Concerns: NSTEMI Plan of Treatment: transfer to [facility] for cardiac catheterization Cardiology follow-up
--- NOTE | 2020-05-22 11:02 | PC.NURSE ---
pt has been alert, oriented and denies chest pain. She has been ambulatory in room with no dizziness. Pt has been seen by cardiology and Hospitalist and is to be transferred to [facility]. Report called to [facility] at [facility].
[2020-05-22 11:25] VITALS: BP 121/53; PULSE 59; RESP 19; TEMP 36.3; O2SAT 91
[2020-05-22 11:29] LABS: Glucose, Whole Blood 105 mg/dL (60-115)
== END 2020-05-22 12:15 | disposition short-term general hospital (02) | DRG 281 ==
LOC: HO.ED 05-21 01:47 → HO.EDOVER 05-21 05:30 → HO.S3 05-21 06:17
PROVIDERS: Admitting Provider Hospitalist; Emergency Provider Student in an Organized Health Care Education/Training Program; PCP Family Medicine; Visit Provider Family Medicine
DX: I21.4 Non-ST elevation (NSTEMI) myocardial infarction (principal); N39.0 Urinary tract infection, site not specified; I16.0 Hypertensive urgency; E11.9 Type 2 diabetes mellitus without complications; F32.9 Major depressive disorder, single episode, unspecified; I10 Essential (primary) hypertension; E78.5 Hyperlipidemia, unspecified; F41.9 Anxiety disorder, unspecified; Z20.822 Contact with and (suspected) exposure to COVID-19; Z88.5 Allergy status to narcotic agent; Z87.891 Personal history of nicotine dependence; Z79.4 Long term (current) use of insulin; Z79.82 Long term (current) use of aspirin; Z79.899 Other long term (current) drug therapy
CPT/HCPCS: 36415; 70450; 71046; 80048; 80061; 81001; 81003; 82947; 83036; 84484; 85025; 85610; 85730; 87086; 87635; 93005; 93306; 99284; J0696; J1650

== ENCOUNTER → 2020-07-01 12:37 | Outpatient (BNVA) | payer MEDICARE, SELFPAY | PROVIDERS: PCP Family Medicine; Visit Provider Internal Medicine Cardiovascular Disease ==

== ENCOUNTER → 2020-07-11 07:25 | Outpatient (REF) | payer MEDICARE, SELFPAY ==
--- NOTE | 2020-07-11 07:29 | CA_ITS ---
Transthoracic Echocardiogram Amended Patient (Last, First, Middle): Joi Dennis, Gender: Female Date of : 1950 Age: 69 Procedure Date: 07/11/2020 Procedure Type: Transthoracic Echocardiogram Location: OP Height: 157.48 cm Weight: 102.06 kg BSA: 2.01 m2 Heart Rate: bpm BP: 123 / 53 mmHg Optical Fabrication Technician: JOHN Rouse MD: Familia Rene MD Symptoms: I31.3 - Pericardial effusion (noninflammatory) Study Quality: Fair ECG Rhythm: Sinus Conclusions: - The left ventricular systolic function is normal. The visually estimated ejection fraction is between 60-65%. - Large pericardial effusion noted. Posterior to the left ventricle it measures about 3 cm. Over the right atrium, it measure 3.2cm. Mostly effusion is posterior. - There are no definitive echocardiographic findings of tamponade physiology. Findings Left Ventricle Normal left ventricular cavity size. The left ventricular systolic function is normal. The visually estimated ejection fraction is between 60-65%. There is no evidence of regional wall motion abnormalities. Right Ventricle Normal right ventricular cavity size. There is low normal right ventricular systolic function. Venous The inferior vena cava is normal in size and collapses greater than 50% with inspiration. Pericardium/Pleural There are no definitive echocardiographic findings of tamponade physiology. Large pericardial effusion noted. Posterior to the left ventricle it measures about 3 cm. Over the right atrium, it measure 3.2cm. Prior Study Comparison Changes noted compared to prior study dated: 05/21/2020. Pericardial effusion is now present. Measurements 2D Linear Measurements IVSd: 1.12 0.6-0.9/0.6-1.0 cm LVIDd: 4.58 3.9-5.3/4.2-5.9 cm LVIDd Index: 2.28 2.4-3.2/2.2-3.1 cm/m2 LVIDs: 2.99 2.0-3.6 cm LVPWd: 1.16 0.7-1.1 cm LV Mass: 235.83 67-162/88-224 g LV Mass Index: 117.33 43-95/49-115 g/m2 Tricuspid Valve TR Pk Will: 1.71 TR Pk Grad: 12.00 RA Press: 8.00 RVSP: 20.00 Updated in Other Vendor System with Status of Final Torsten Beasley MD electronically signed on 07/13/2020 2:10:10 PM with status of Final
== END ==
LOC: HO.CARD 07:25
PROVIDERS: Visit Provider Internal Medicine Cardiovascular Disease
DX: I31.3 Pericardial effusion (noninflammatory) (principal)
CPT/HCPCS: 93308; 99212

== ENCOUNTER 2020-07-24 09:16 | Outpatient (REF) | payer MEDICARE, SELFPAY ==
[2020-07-24 10:40] LABS: MANUAL DIFF FLAG NO
[2020-07-24 10:51] LABS: Basophils Absolute Auto 0.1 X10*3/uL (0.0-0.2); Basophils Percent Auto 0.8 % (0-2); Eosinophils Absolute Auto 0.3 X10*3/uL (0.0-0.4); Eosinophils Percent Auto 2.9 % (0-4); Hematocrit 42.6 % (37-47); Hemoglobin 13.7 g/dl (12.0-16.0); Imm Gran Abs Auto 0.05 X10*3/uL (0.00-0.03); Imm Gran Pct Auto 0.5 % (0.0-0.4); Lymphocytes Absolute Auto 3.1 X10*3/uL (1.2-4.9); Lymphocytes Percent Auto 29.7 % (20-40); Mean Corpuscular HGB Conc 32.2 g/dl (31.0-35.0); Mean Corpuscular Hemoglobin 29.5 pg (27.0-33.0); Mean Corpuscular Volume 91.6 fL (80-98); Mean Platelet Volume 10.8 fL (9.4-12.3); Monocytes Absolute Auto 0.7 X10*3/uL (0.1-1.2); Monocytes Percent Auto 6.3 % (2-11); Neutrophils Absolute Auto 6.2 X10*3/uL (2.0-8.3); Neutrophils Percent Auto 59.8 % (45-73); Platelet Count 312 X10*3/uL (160-400); Red Blood Count 4.65 X10*6/uL (4.20-5.50); Red Cell Distribution Width 13.2 % (11.0-16.0); White Blood Count 10.4 X10*3/uL (4.8-10.8)
[2020-07-24 11:00] LABS: Glucose Urine UA NEG (NEG); Leukocyte Esterase Urine 1+ (NEG); Nitrite Urine NEG (NEG); PH 5.5 (5.0-8.0); Urine Blood NEG (NEG); Urine Ketones NEG (NEG); Urine Protein NEG (NEG-TRACE)
[2020-07-24 11:03] LABS: Appearance Urine CLEAR; Color Urine YELLOW
[2020-07-24 11:24] LABS: Mucus Urine TRACE /LPF; RBC Urine 0 /HPF (0); Squamous Epithelial Cell Urine TRACE /LPF
[2020-07-24 11:34] LABS: Alanine Aminotransferase 31 U/L (0-31); Alkaline Phosphatase 87 U/L (39-117); Anion Gap 13 (12-20); Aspartate Amino Transferase 17 U/L (5-31); Bilirubin Total 0.4 mg/dL (0.0-1.0); Blood Urea Nitrogen 16 mg/dL (9-16); Calcium 9.5 mg/dL (8.4-10.2); Carbon Dioxide 29 mmol/L (22-29); Chloride 101 mmol/L (96-108); Estimated Glomerular Filt Rate > 60; Glucose Random 113 mg/dL (60-115); Potassium 4.1 mmol/L (3.3-5.1); Sodium 139 mmol/L (135-145); Total Protein 7.2 g/dL (6.5-8.0)
== END 2020-07-24 09:17 | disposition home or self-care (01) ==
LOC: HO.WFDLDS 09:16
PROVIDERS: Visit Provider Family Medicine
DX: Z95.1 Presence of aortocoronary bypass graft (principal)
CPT/HCPCS: 36415; 80053; 81001; 81003; 85025

== ENCOUNTER 2020-07-26 07:15 | Outpatient (REF) | payer MEDICARE, SELFPAY ==
[2020-07-26 10:57] LABS: Alanine Aminotransferase 30 U/L (0-31); Albumin Level 3.9 g/dL (3.5-5.0); Alkaline Phosphatase 86 U/L (39-117); Anion Gap 11 (12-20); Aspartate Amino Transferase 18 U/L (5-31); Bilirubin Total 0.7 mg/dL (0.0-1.0); Blood Urea Nitrogen 16 mg/dL (9-16); Calcium 9.4 mg/dL (8.4-10.2); Carbon Dioxide 30 mmol/L (22-29); Chloride 106 mmol/L (96-108); Cholesterol 138 mg/dL; Estimated Glomerular Filt Rate > 60; Glucose Fasting 121 mg/dL (60-99); Glucose Urine UA NEG (NEG); HDL Cholesterol 43 mg/dL; LDL Cholesterol Calculated 65 mg/dl; Leukocyte Esterase Urine 1+ (NEG); Nitrite Urine NEG (NEG); Potassium 4.2 mmol/L (3.3-5.1); Sodium 143 mmol/L (135-145); Specific Gravity - Urine >= 1.030 (1.005-1.025); Total Protein 7.1 g/dL (6.5-8.0); Triglycerides 152 mg/dL; Urine Blood NEG (NEG); Urine Ketones NEG (NEG); Urine Protein NEG (NEG-TRACE)
[2020-07-26 10:59] LABS: Appearance Urine CLOUDY; Color Urine YELLOW
[2020-07-26 11:16] LABS: Amorphous Sediment Urine 3+ /LPF; Mucus Urine 3+ /LPF; RBC Urine 0 /HPF (0)
[2020-07-26 11:19] LABS: TSH reflex Free T4 2.12 uIU/mL (0.32-4.0)
[2020-07-26 11:34] LABS: Creatinine Urine 227.29 mg/dL; Microalbum/Creatinine Ratio Ur 16.7 ug/mg cr
== END 2020-07-26 07:16 | disposition home or self-care (01) ==
LOC: HO.WFDLDS 07:15
PROVIDERS: Visit Provider Family Medicine
DX: Z00.00 Encounter for general adult medical examination without abnormal findings (principal); I10 Essential (primary) hypertension; Z95.1 Presence of aortocoronary bypass graft
CPT/HCPCS: 36415; 80053; 80061; 81001; 82043; 84443

== ENCOUNTER → 2020-07-29 09:06 | Outpatient (BNVA) | payer MEDICARE, SELFPAY | PROVIDERS: PCP Family Medicine; Referring Provider Family Medicine; Visit Provider Internal Medicine Cardiovascular Disease | DX: R00.2 Palpitations (principal); D68.51 Activated protein C resistance; I31.3 Pericardial effusion (noninflammatory); Z95.1 Presence of aortocoronary bypass graft | CPT/HCPCS: 93005; 99212 ==

== ENCOUNTER → 2020-08-01 11:03 | Outpatient (REF) | payer MEDICARE, SELFPAY ==
--- NOTE | 2020-08-01 11:06 | CA_ITS ---
Transthoracic Echocardiogram Patient (Last, First, Middle): Joi Dennis, Gender: Female Date of : 1950 Age: 69 Procedure Date: 08/01/2020 Procedure Type: Transthoracic Echocardiogram Location: OP Height: 157.48 cm Weight: 98.88 kg BSA: 1.98 m2 Heart Rate: bpm BP: 131 / 62 mmHg Chha: TRN Referring MD: Familia Rene MD Symptoms: I31.3 - Pericardial effusion (noninflammatory) Study Quality: Fair ECG Rhythm: Sinus Conclusions: - There is a small circumferential pericardial effusion. Much improved from prior study. Findings Left Ventricle The left ventricular systolic function is normal. The visually estimated ejection fraction is between 65-70%. Pericardium/Pleural There is a small circumferential pericardial effusion. There are no definitive echocardiographic findings of tamponade physiology. Prior Study Comparison Changes noted compared to prior study dated: 08/01/2020. Significant improvement in pericardial effusion size. Measurements 2D Linear Measurements IVSd: 0.86 0.6-0.9/0.6-1.0 cm LVIDd: 4.94 3.9-5.3/4.2-5.9 cm LVIDd Index: 2.49 2.4-3.2/2.2-3.1 cm/m2 LVIDs: 2.92 2.0-3.6 cm LVPWd: 1.24 0.7-1.1 cm LV Mass: 237.65 67-162/88-224 g LV Mass Index: 120.02 43-95/49-115 g/m2 Mitral Valve MV Pk E: 0.84 MV PK A: 0.96 MV Decel Time: 242.00 E/A: 0.90 E'Lateral: 6.64 E'Medial: 4.79 E/E' Med: 17.50 E/E' Lat: 12.70 PHT: 71.00 MVA PHT: 3.10 Decel [place]: 3.47 Diastolic Function MV Pk E: 0.84 MV Pk A: 0.96 E/A: 0.90 E'Medial: 4.79 E/E' Med: 17.50 E' Laterial: 6.64 E/E' Lat: 12.70 Updated in Other Vendor System with Status of Final Torsten Beasley MD electronically signed on 08/02/2020 4:06:38 PM with status of Final
--- NOTE | 2020-08-01 11:06 | HM_ITS ---
A 69-year-old female. REQUESTING PROVIDER: Familia Rene MD REASON FOR TEST: Palpitation. INTERPRETATION: I was requested to report on this on 09/25/2020. The patient underwent cardiac event monitor hooked up from 08/01/2020 to 08/31/2020 for a total period of 30 days. FINDINGS: Baseline rhythm is normal sinus rhythm with heart rate varying from 65 beats per minute to 95 beats per minute. There is baseline bundle-branch block noted. Rare episode of isolated PVCs noted. The patient reported 1 event of chest pain, which correlated with isolated PVC. CONCLUSION: 1. Baseline normal sinus rhythm with rare isolated PVCs. 2. The patient reported 1 event of chest pain correlated with isolated PVC. William Hernandez MD NRS/MODL / [id number]
== END ==
LOC: HO.CARD 11:03
PROVIDERS: Visit Provider Internal Medicine Cardiovascular Disease
DX: I31.3 Pericardial effusion (noninflammatory) (principal); R00.2 Palpitations
CPT/HCPCS: 93270; 93308; 93321

== ENCOUNTER → 2020-08-28 13:35 | Outpatient (BNVA) | payer MEDICARE, SELFPAY | PROVIDERS: PCP Family Medicine; Referring Provider Family Medicine; Visit Provider Internal Medicine Cardiovascular Disease ==

== ENCOUNTER → 2020-09-02 12:48 | Outpatient (REF) | payer MEDICARE, SELFPAY ==
--- NOTE | 2020-09-02 12:51 | CA_ITS ---
Transthoracic Echocardiogram Patient (Last, First, Middle): Joi Dennis, Gender: Female Date of : 1950 Age: 69 Procedure Date: 09/02/2020 Procedure Type: Transthoracic Echocardiogram Location: OP Height: 157.48 cm Weight: 97.52 kg BSA: 1.97 m2 Heart Rate: bpm BP: 123 / 72 mmHg Management Associate: IS[facility] Referring MD: Familia Rene MD Diaphragm Builder: William Hernandez MD Symptoms: I31.3 - Pericardial effusion (noninflammatory) Study Quality: Fair ECG Rhythm: Sinus Conclusions: - Small circumferential pericardial effusion Findings Pericardium/Pleural There is a small circumferential pericardial effusion. Prior Study Comparison No significant change compared to prior study dated: 08/01/2020. Measurements Tricuspid Valve RA Press: 3.00 Updated in Other Vendor System with Status of Final William Hernandez MD electronically signed on 09/03/2020 11:35:43 AM with status of Final
== END ==
LOC: HO.CARD 12:48
PROVIDERS: Visit Provider Internal Medicine Cardiovascular Disease
DX: I31.3 Pericardial effusion (noninflammatory) (principal)
CPT/HCPCS: 93308; 99212

== ENCOUNTER → 2020-11-12 07:54 | Outpatient (BNVA) | payer MEDICARE, SELFPAY | PROVIDERS: PCP Family Medicine; Referring Provider Family Medicine; Visit Provider Physician Assistant | DX: Z12.11 Encounter for screening for malignant neoplasm of colon (principal); D68.51 Activated protein C resistance | CPT/HCPCS: 99202 ==

== ENCOUNTER 2020-11-22 08:00 | Outpatient (REF) | payer MEDICARE, SELFPAY ==
--- NOTE | ~2020-11-22 | MM_ITS ---
EXAMINATION: BONE DENSITOMETRY CLINICAL INDICATION: Encounter for screening for osteoporosis. COMPARISON: None (current study represents initial baseline exam). TECHNIQUE: Using a [employer]om[employer]ock[employer] DXA System (software version: 13.1) manufactured by [employer], dual-energy x-ray absorptiometry was performed of the lumbar spine and left hip. The images are of good technical quality. Summary results are attached. FINDINGS: AP SPINE L1-L4: BMD 1.152 g/cm2, Z-score 0.4, T-score -0.2, normal. LEFT FEMUR, NECK: BMD 0.836 g/cm2, Z-score -0.5, T-score -1.5, osteopenia. LEFT FEMUR, TOTAL: BMD 1.000 g/cm2, Z-score 0.6, T-score -0.1, normal. IDENTIFIED RISK FACTORS: Early menopause, secondary osteoporosis, hysterectomy, bilateral oophorectomy. HISTORY OF FRACTURE: None listed. MEDICATIONS: Multivitamins. MM/XR DEXA axial skeleton IMPRESSION: 1. DIAGNOSIS: Osteopenia based on the lowest T-score value of -1.5 in the femoral neck applying World Health Organization criteria. 2. 10-YEAR FRACTURE RISK PREDICTION, FRAX: Major osteoporotic fracture (clinical spine, forearm, hip or shoulder) 8.7%. Hip fracture 1.1%. 3. Treatment Recommendations: NOF guidelines recommend consideration for treatment in postmenopausal women and men age 50 and older presenting with the following: -A hip or vertebral (clinical or morphometric) fracture. -T-score less than or equal to -2.5 at the femoral neck or spine after appropriate evaluation to exclude secondary causes. -Low bone mass at the hip or spine and a 10-year fracture probability by FRAX of greater than or equal to 3% for hip fracture or greater than or equal to 20% for major osteoporotic fracture based on the [place] adapted WHO algorithm. 4. Other Recommendations: All treatment decisions require clinical judgment and consideration of individual patient factors, including patient preferences, comorbidities, previous drug use, risk factors not captured in the FRAX model (e.g. frailty, falls, vitamin D deficiency, increased bone turnover, interval significant decline in bone density) and possible under or overestimation of fracture risk by FRAX. Additional medical evaluation for secondary cause of low bone mineral density may be appropriate. FUTURE SCAN RECOMMENDATION: People with diagnosed cases of osteoporosis or at high risk for fracture should have regular bone mineral density tests. For patients eligible for Medicare, routine testing is allowed once every 2 years. The testing frequency can be increased to one year for patients who have rapidly progressing disease, those who are receiving or discontinuing medical therapy to restore bone mass, or have additional risk factors.
== END 2020-11-22 08:01 | disposition home or self-care (01) ==
LOC: HO.MAMMO 08:00
PROVIDERS: Visit Provider Family Medicine
DX: Z13.820 Encounter for screening for osteoporosis (principal); M85.80 Other specified disorders of bone density and structure, unspecified site; Z78.0 Asymptomatic menopausal state; Z98.890 Other specified postprocedural states; Z90.722 Acquired absence of ovaries, bilateral; Z79.899 Other long term (current) drug therapy
CPT/HCPCS: 77080

== ENCOUNTER → 2020-11-27 09:13 | Outpatient (BNVA) | payer MEDICARE, SELFPAY | PROVIDERS: PCP Family Medicine; Referring Provider Family Medicine; Visit Provider Internal Medicine Cardiovascular Disease | DX: I31.3 Pericardial effusion (noninflammatory) (principal); I10 Essential (primary) hypertension; Z95.1 Presence of aortocoronary bypass graft | CPT/HCPCS: 99212 ==

== ENCOUNTER → 2020-12-04 10:40 | Outpatient (BNVA) | payer MEDICARE, SELFPAY | PROVIDERS: PCP Family Medicine; Visit Provider Internal Medicine Cardiovascular Disease | DX: I10 Essential (primary) hypertension (principal); Z95.1 Presence of aortocoronary bypass graft | CPT/HCPCS: 99212 ==

== ENCOUNTER → 2021-02-26 13:56 | Outpatient (BNVA) | payer MEDICARE, SELFPAY | PROVIDERS: PCP Family Medicine; Referring Provider Family Medicine; Visit Provider Nurse Practitioner Family | DX: I25.10 Atherosclerotic heart disease of native coronary artery without angina pectoris (principal); I31.3 Pericardial effusion (noninflammatory); I10 Essential (primary) hypertension; E78.5 Hyperlipidemia, unspecified; E11.9 Type 2 diabetes mellitus without complications; Z95.1 Presence of aortocoronary bypass graft; Z86.711 Personal history of pulmonary embolism | CPT/HCPCS: 99212 ==

== ENCOUNTER 2021-05-28 07:50 | Outpatient (REF) | payer MEDICARE, SELFPAY ==
--- NOTE | ~2021-05-28 | XR_ITS ---
EXAMINATION: XR SHOULDER, RIGHT CLINICAL INFORMATION: Pain in right shoulder. COMPARISON: None TECHNIQUE: 3 views of the right shoulder. FINDINGS: The bones and soft tissues are normal. No fracture. Glenohumeral and acromioclavicular alignment is anatomic with normal joint space. There is punctate soft tissue calcification lateral to the greater tuberosity. XR/XR shoulder RT min 2V IMPRESSION: No acute fracture or dislocation. Nonspecific calcification adjacent to right greater tuberosity question early calcific tendinitis.
== END 2021-05-28 07:51 | disposition home or self-care (01) ==
LOC: HO.HOSX 07:50
PROVIDERS: Visit Provider Physician Assistant
DX: M75.81 Other shoulder lesions, right shoulder (principal)
CPT/HCPCS: 20610; 73030; 99202; J1040

== ENCOUNTER 2021-06-26 14:53 | Outpatient (REF) | payer MEDICARE, SELFPAY | END 2021-06-26 14:54 | disposition home or self-care (01) | LOC: HO.LNP 14:53 | PROVIDERS: Visit Provider Hospitalist | DX: Z20.822 Contact with and (suspected) exposure to COVID-19 (principal) | CPT/HCPCS: U0003; U0005 ==

== ENCOUNTER 2021-06-29 10:55 | Emergency (ER) | payer MEDICARE, SELFPAY ==
--- NOTE | ~2021-06-29 | XR_ITS ---
EXAMINATION: XR CHEST CLINICAL INFORMATION: Shortness of breath COMPARISON: 05/21/2020 TECHNIQUE: 2 views of the chest were obtained. FINDINGS: Median sternotomy wires and vascular clips are in place. Stable heart size. Adequate expansion of the lungs. No focal consolidation. No pleural effusion or pneumothorax. No acute osseous abnormality. XR/XR chest 2V IMPRESSION: No acute disease within the chest. No focal consolidation.
[2021-06-29 10:58] VITALS: BP 137/58; PULSE 56; RESP 17; TEMP 36.8; O2SAT 98; BMI 39.6
--- NOTE | 2021-06-29 11:05 | ECG_ITS ---
Test Reason : cp Blood Pressure : / mmHG Vent. Rate : 058 BPM Atrial Rate : 058 BPM P-R Int : 178 ms QRS Dur : 144 ms QT Int : 468 ms P-R-T Axes : 023 059 058 degrees QTc Int : 459 ms Sinus bradycardia Right bundle branch block Abnormal ECG When compared with ECG of 21-MAY-2020 01:25, T wave inversion now evident in Anterior leads Referred By: Joan Goldman Electronically Signed By:ROBBY HERNANDEZ
--- NOTE | 2021-06-29 11:23 | ED_ITS ---
HPI - SOB/Dyspnea General Chief Complaint: Chest Pain Stated Complaint: DIZZY,SOB Time Seen by Provider: 06/29/21 11:03 Source: patient Mode of arrival: EMS Limitations: no limitations History of Present Illness HPI Narrative: Patient presents to the emergency department for evaluation of chest pressure, shortness of breath, nonproductive cough, intermittent dizziness x4 days. Had congestion the first 2 days which has improved some with Coricidin. She has taken multiple COVID- 19 tests which have been negative, she does endorse being around a friend who was ill with some similar symptoms. She has been vaccinated for COVID- 19 with Cybereason x3. denies fevers, chills, sore throat, nausea, vomiting, diarrhea, constipation, abdominal pain, dysuria, urinary frequency, pedal edema, generalized weakness. She was evaluated by her primary care provider 2 days ago for similar symptoms and she is currently awaiting the results of the COVID- 19 test that they performed. Related Data Home Medications Medication Instructions Recorded Confirmed multivitamin 1 tab PO DAILY 07/24/20 02/26/21 apixaban 2.5 mg tablet (Eliquis) 1 tab PO DAILY 09/16/20 02/26/21 Previous Rx's Medication Instructions Recorded fluticasone propionate 50 1 spray INTRANASAL BID 30 Days #16 04/24/20 mcg/actuation nasal g spray,suspension (Flonase Allergy Relief) metformin 500 mg tablet 750 mg PO DAILY 90 Days #135 tab 08/26/20 metoprolol succinate 25 mg 12.5 mg PO DAILY 90 Days #45 tab 08/26/20 tablet,extended release 24 hr bisacodyl 5 mg tablet,delayed 10 mg PO ONCE 1 Days #2 tab 11/12/20 release (Dulcolax (bisacodyl)) polyethylene glycol 3350 17 238 g PO ONCE 1 Days #238 g 11/12/20 gram/dose oral powder (Miralax) aspirin 81 mg tablet,delayed 81 mg PO DAILY #1 tab 11/27/20 release (Adult Aspirin Regimen) amlodipine 5 mg tablet 5 mg PO DAILY 90 Days #90 tab 12/18/20 colchicine 0.6 mg tablet 0.6 mg PO DAILY #30 tab 01/16/21 atorvastatin 80 mg tablet 80 mg PO DAILY 90 Days #90 ea 03/03/21 gabapentin 100 mg capsule 200 - 300 mg PO BID #540 cap 03/27/21 paroxetine HCl 30 mg tablet 30 mg PO DAILY 90 Days #90 tab 04/28/21 furosemide 40 mg tablet 40 mg PO DAILY 90 Days #90 tab 05/05/21 chlorpheniramine-acetaminophen 2 2 tab PO Q6H PRN #28 tab 06/26/21 mg-325 mg tablet (Coricidin HBP Cold and Flu) Allergies Allergy/AdvReac Type Severity Reaction Status Date / Time oxycodone [OXYCODONE] Allergy Mild NAUSEA & Verified 06/26/21 11:20 VOMITING, auditory hallucination, hallucinations bupropion [From WELLBUTRIN] AdvReac Mild NAUSEA & Verified 06/26/21 11:20 VOMITING Review of Systems Review of Systems: Constitutional: No weight loss, fever, chills, weakness or fatigue. HEENT: No visual loss, blurred vision, double vision. No hearing loss or sore throat. Skin: No rash or itching. Cardiovascular: Positive chest pressure No palpitations or pedal edema. Respiratory: positive shortness of breath. Positive dyspnea on exertion. Positive cough. Gastrointestinal: No anorexia, nausea, vomiting or diarrhea. No abdominal pain or blood in stool. Genitourinary: No burning micturition. No urinary frequency or incontinence. Neurologic: Positive dizziness. No headache, syncope, unilateral weakness, ataxia, numbness or tingling in the extremities. No change in bowel or bladder control. Musculoskeletal: No muscle pain, back pain, joint pain or stiffness. Hematologic: No bleeding or bruising. Lymphatics: No enlarged lymph nodes. Psychiatric: positive anxiety Endocrine: No polyuria or polydipsia. Yes all other systems are reviewed and are negative [facility] Past Medical History Attestation statement: The following information was validated with the patient. Source: old records reviewed Medical History CAD (coronary artery disease) Diabetes type 2, controlled Essential hypertension Factor 5 Leiden mutation, heterozygous Hyperlipidemia Hypertension PSVT (paroxysmal supraventricular tachycardia) Uterine cancer Surgical History History of hysterectomy History of open heart surgery Family History Family History Sister Lung cancer Stroke Father Heart attack Mother Heart attack Son Diabetes Brother Parkinsons Brother Diverticulitis Social History Social History Household Members: None Household Members Other:: , 1 son cardiac@ 48 Housing: House Alcohol intake: never Patient Tobacco Use Status: Former Tobacco user Quit Date: age 22 Tobacco use type: Cigarette Years Smoked: 6 e-Cigarette/Vaping Use: Never Used Second Hand Smoke Exposure: No Advance Directives: No Advance Directives Information Provided: No service: No Current occupational status: retired 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 patient is anxious and tearful. Eyes: Pupils equal, round and reactive to light.?EOMi. No Nystagmus ENT: Pharynx normal.?? Neck: Normal inspection.? Neck supple.?? CVS: Heart sounds distant, S1 and S2 present, no murmurs, rubs, or gallops. bradycardia with heart rate in the 50s. 2+ radial, 2+ dorsalis pedis, 2+ posterior tibial pulses bilaterally? Respiratory: No respiratory distress.? Lung sounds clear to auscultation bilaterally?? Abdomen: Soft and non-tender. Normoactive bowel sounds. No pulsatile mass.?? Skin: Skin warm and dry.? Normal skin color.? Normal skin turgor.?? Extremities: No lower extremity edema.? No calf ttp? Neuro: Moves all extremities spontaneously. Sensation intact bilaterally. CN II- XII intact. No focal neuro deficits. Ambulates with normal steady gait. Course Course Course Narrative: Patient is a 70-year-old female with a past medical history of depression, anxiety, hyperlipidemia, hypertension, coronary artery disease, NSTEMI s/p CABG x3, pericardial effusion, type 2 diabetes, history of pulmonary embolism and factor 5 Leiden mutation on Eliquis. She presents for evaluation of upper respiratory symptoms in addition to chest pressure, intermittent dizziness and dyspnea with exertion x4 days. She does endorse a sick contact, without known COVID positive testing. She does admit to feeling very anxious and is concerned about as she had an NSTEMI followed by CABG and pericardial effusion requiring drainage of last year. Prior to the onset of her symptoms 4 days ago she was feeling well. Outpatient COVID- 19 testing has been negative, provided Coricidin for her symptoms without complete relief. Will obtain CBC to evaluate for leukocytosis/ anemia, CMP and to evaluate for abnormal electrolytes /abnormal renal function/ abnormal hepatic function, EKG and troponin to evaluate for ischemia/ACS. Chest x-ray to evaluate for consolidation/ infiltrate/ mass/ pulmonary congestion. Urinalysis to evaluate for infection. On physical exam attends are present but distant, bedside ultrasound performed with ED attending, Dr. Doran, no obvious pericardial effusion. Reevaluation(s) Reevaluation #1: CBC is unremarkable, CMP is overall unremarkable, mild elevation of transaminases AST 32 ALT 46, benign abdominal exam. BNP is normal. Troponin 6.9, EKG Indicates sinus bradycardia with right bundle-branch block consistent with prior EKGs, no acute concern for ischemia. COVID- 19 testing is negative. Influenza testing is positive. chest x-ray reveals no acute disease or focal consolidation, stable heart size, no pleural effusion or pneumothorax. Advised patient of results and findings at this time, noted O2 saturation at rest to be 91% on room air. Will obtain ambulation O2 trial for further assessment. Time: 12:29 Reevaluation #2: Assessment of patient's resting O2 saturation remained between 91 and 98 during rest. Ambulatory O2 trial heart rate remained stable in the 60s, with no hypoxia saturation greater than 93% for duration. reviewed findings with patient, discussed plan of care for discharge home, offered Tamiflu however patient declines, outpatient follow-up with her primary care provider, reasons to return back to the emergency department, the patient is agreeable with plan of care Time: 12:55 MDM - SOB/Dyspnea Medical Records Attestation: I reviewed the patient's medical records. Lab Data Attestation: I reviewed the patient's lab results. Result diagrams: 06/29/21 11:40 06/29/21 11:40 Labs: Lab Results 06/29/21 06/29/21 06/29/21 Range/Units 11:40 11:40 11:40 WBC 6.5 (4.8-10.8) X10*3/uL RBC 4.74 (4.20-5.50) X10*6/uL Hgb 14.1 (12.0-16.0) g/dl Hct 42.6 (37.0-47.0) % MCV 89.9 (80.0-98.0) fL MCH 29.7 (27.0-33.0) pg MCHC 33.1 (31.0-35.0) g/dl RDW 13.3 (11.0-16.0) % Plt Count 210 (160-400) X10*3/uL MPV 9.9 (9.4-12.3) fL Immature Gran % (Auto) 0.2 (0.0-0.4) % Neut % (Auto) 47.7 (45-73) % Lymph % (Auto) 42.3 H (20-40) % [place] % (Auto) 7.3 (2-11) % Eos % (Auto) 2.0 (0-4) % Baso % (Auto) 0.5 (0-2) % Lymph # (Auto) 2.7 (1.2-4.9) X10*3/uL [place] # (Auto) 0.5 (0.1-1.2) X10*3/uL Eos # (Auto) 0.1 (0.0-0.4) X10*3/uL Baso # (Auto) 0.0 (0.0-0.2) X10*3/uL Abs Immat Gran (auto) 0.01 (0.00-0.03) X10*3/uL Absolute Neuts (auto) 3.1 (2.0-8.3) x10*3/uL Absolute Nucleated RBC 0.000 (0.0-0.012) X10*3/uL Nucleated RBC % (auto) 0.0 (0.0-0.2) /100WBC Sodium 138 (135-145) mmol/L Potassium 3.6 (3.3-5.1) mmol/L Chloride 101 (96-108) mmol/L Carbon Dioxide 28 (22-29) mmol/L Anion Gap 13 (12-20) BUN 9 (9-16) mg/dL Creatinine 0.65 (0.5-1.4) mg/dL Estim Creat Clear Calc 88.2 Estimated GFR > 60 Random Glucose 114 (60-115) mg/dL Calcium 8.7 (8.4-10.2) mg/dL Magnesium 1.9 (1.6-2.6) mg/dL Total Bilirubin 0.6 (0.0-1.0) mg/dL AST 32 H D (5-31) U/L ALT 46 H (0-31) U/L Alkaline Phosphatase 99 (39-117) U/L Troponin I High Sens 6.9 (<3.5-17.0) ng/L B-Natriuretic Peptide 100 (<100) pg/mL Total Protein 6.7 (6.5-8.0) g/dL Albumin 3.7 (3.5-5.0) g/dL COVID-19 (MARIBEL) (Negative) COVID-19 Clin Com Influenza Type A (KIRSTEN) (Negative) Influenza Type B (KIRSTEN) (Negative) Influenza A & B Note 06/29/21 06/29/21 Range/Units 11:40 11:40 WBC (4.8-10.8) X10*3/uL RBC (4.20-5.50) X10*6/uL Hgb (12.0-16.0) g/dl Hct (37.0-47.0) % MCV (80.0-98.0) fL MCH (27.0-33.0) pg MCHC (31.0-35.0) g/dl RDW (11.0-16.0) % Plt Count (160-400) X10*3/uL MPV (9.4-12.3) fL Immature Gran % (Auto) (0.0-0.4) % Neut % (Auto) (45-73) % Lymph % (Auto) (20-40) % [place] % (Auto) (2-11) % Eos % (Auto) (0-4) % Baso % (Auto) (0-2) % Lymph # (Auto) (1.2-4.9) X10*3/uL [place] # (Auto) (0.1-1.2) X10*3/uL Eos # (Auto) (0.0-0.4) X10*3/uL Baso # (Auto) (0.0-0.2) X10*3/uL Abs Immat Gran (auto) (0.00-0.03) X10*3/uL Absolute Neuts (auto) (2.0-8.3) x10*3/uL Absolute Nucleated RBC (0.0-0.012) X10*3/uL Nucleated RBC % (auto) (0.0-0.2) /100WBC Sodium (135-145) mmol/L Potassium (3.3-5.1) mmol/L Chloride (96-108) mmol/L Carbon Dioxide (22-29) mmol/L Anion Gap (12-20) BUN (9-16) mg/dL Creatinine (0.5-1.4) mg/dL Estim Creat Clear Calc Estimated GFR Random Glucose (60-115) mg/dL Calcium (8.4-10.2) mg/dL Magnesium (1.6-2.6) mg/dL Total Bilirubin (0.0-1.0) mg/dL AST (5-31) U/L ALT (0-31) U/L Alkaline Phosphatase (39-117) U/L Troponin I High Sens (<3.5-17.0) ng/L B-Natriuretic Peptide (<100) pg/mL Total Protein (6.5-8.0) g/dL Albumin (3.5-5.0) g/dL COVID-19 (MARIBEL) Negative (Negative) COVID-19 Clin Com See Note Influenza Type A (KIRSTEN) Positive A (Negative) Influenza Type B (KIRSTEN) Negative (Negative) Influenza A & B Note See Note Imaging Data Chest x-ray: Radiologist's impression: FINDINGS: Median sternotomy wires and vascular clips are in place. Stable heart size. Adequate expansion of the lungs. No focal consolidation. No pleural effusion or pneumothorax. No acute osseous abnormality. XR/XR chest 2V IMPRESSION: No acute disease within the chest. No focal consolidation. ECG Data Attestation: I personally reviewed and interpreted this ECG as follows: ECG interpretation date: 06/29/21 ECG interpretation time: 12:54 Prior ECG tracings: available for review Interpretation: Rate: 58 Rhythm:? sinus bradycardia with right bundle-branch block, consistent with prior EKG [place]:? normal Normal P waves.? Normal DUNG.?? Normal QRS complex.?? ST T wave :?? no ST elevation, no ST depression, qTC: 459 The study has been interpreted contemporaneously by me. Discharge Plan Discharge Clinical Impression: Influenza A Patient Disposition: Home, Self-Care Additional Instructions: please be sure to get plenty of rest, drink plenty of fluids, return to the emergency department with any new or worsening symptoms or concerns such as severe headache, lightheadedness, dizziness, chest pain, palpitations, worsening shortness of breath, difficulty breathing, weakness, falls, confusion. Please contact your primary care provider and schedule a follow-up visit within 5 days. Prescriptions: No Action metoprolol succinate 25 mg tablet extended release 24 hr 12.5 mg PO DAILY 90 Days Qty: 45 3RF metformin 500 mg tablet 750 mg PO DAILY 90 Days Qty: 135 3RF colchicine 0.6 mg tablet 0.6 mg PO DAILY Qty: 30 3RF atorvastatin 80 mg tablet 80 mg PO DAILY 90 Days Qty: 90 3RF gabapentin 100 mg capsule 200 - 300 mg PO BID Qty: 540 3RF paroxetine HCl 30 mg tablet 30 mg PO DAILY 90 Days Qty: 90 2RF furosemide 40 mg tablet 40 mg PO DAILY 90 Days Qty: 90 2RF multivitamin Tablet 1 tab PO DAILY 0RF Eliquis 2.5 mg tablet 1 tab PO DAILY 0RF fluticasone propionate [Flonase Allergy Relief] 50 mcg/actuation spray,suspension 1 spray intranasal BID 30 Days Qty: 16 3RF Rx Instructions: administer into each nostril amlodipine 5 mg tablet 5 mg PO DAILY 90 Days Qty: 90 3RF Coricidin HBP Cold and Flu 2-325 mg tablet 2 tab PO Q6H PRN (Reason: sinus symptoms) Qty: 28 1RF aspirin [Adult Aspirin Regimen] 81 mg tablet,delayed release (DR/EC) 81 mg PO DAILY Qty: 1 0RF bisacodyl [Dulcolax (bisacodyl)] 5 mg tablet,delayed release (DR/EC) 10 mg PO ONCE 1 Days Qty: 2 0RF Rx Instructions: Take 2 tablets by mouth at 12:00pm the day before your procedure. polyethylene glycol 3350 [Miralax] 17 gram/dose powder 238 g PO ONCE 1 Days Qty: 238 0RF Rx Instructions: Take as directed by mouth the day before your procedure. Referrals: Nicole Cabrera NP [Primary Care Provider] - 5 days Interventions: ED Discharge Assessment Last Done: 06/29/21 13:22 Discharge Date/Time: 06/29/21 13:23
[2021-06-29 11:45] LABS: MANUAL DIFF FLAG NO
[2021-06-29 11:46] LABS: Basophils Percent Auto 0.5 % (0-2); Eosinophils Absolute Auto 0.1 X10*3/uL (0.0-0.4); Hematocrit 42.6 % (37.0-47.0); Hemoglobin 14.1 g/dl (12.0-16.0); Imm Gran Abs Auto 0.01 X10*3/uL (0.00-0.03); Imm Gran Pct Auto 0.2 % (0.0-0.4); Lymphocytes Absolute Auto 2.7 X10*3/uL (1.2-4.9); Lymphocytes Percent Auto 42.3 % (20-40); Mean Corpuscular HGB Conc 33.1 g/dl (31.0-35.0); Mean Corpuscular Hemoglobin 29.7 pg (27.0-33.0); Mean Corpuscular Volume 89.9 fL (80.0-98.0); Mean Platelet Volume 9.9 fL (9.4-12.3); Monocytes Absolute Auto 0.5 X10*3/uL (0.1-1.2); Monocytes Percent Auto 7.3 % (2-11); Neutrophils Absolute Auto 3.1 x10*3/uL (2.0-8.3); Neutrophils Percent Auto 47.7 % (45-73); Platelet Count 210 X10*3/uL (160-400); Red Blood Count 4.74 X10*6/uL (4.20-5.50); Red Cell Distribution Width 13.3 % (11.0-16.0); White Blood Count 6.5 X10*3/uL (4.8-10.8)
[2021-06-29 12:02] LABS: Alanine Aminotransferase 46 U/L (0-31); Albumin Level 3.7 g/dL (3.5-5.0); Alkaline Phosphatase 99 U/L (39-117); Anion Gap 13 (12-20); Aspartate Amino Transferase 32 U/L (5-31); Bilirubin Total 0.6 mg/dL (0.0-1.0); Blood Urea Nitrogen 9 mg/dL (9-16); Calcium 8.7 mg/dL (8.4-10.2); Carbon Dioxide 28 mmol/L (22-29); Chloride 101 mmol/L (96-108); Creatinine Clr Calc Pharmacy 88.2; Estimated Glomerular Filt Rate > 60; Glucose Random 114 mg/dL (60-115); Magnesium 1.9 mg/dL (1.6-2.6); Potassium 3.6 mmol/L (3.3-5.1); Sodium 138 mmol/L (135-145); Total Protein 6.7 g/dL (6.5-8.0)
[2021-06-29 12:07] LABS: COVID-19 Test Negative (Negative); IDNOW Serial# 55D5AD1C
[2021-06-29 12:10] LABS: B Type Natriuretic Peptide 100 pg/mL (<100); Troponin-I High Sensitivity 6.9 ng/L (<3.5-17.0)
[2021-06-29 12:23] LABS: IDNOW Serial# 16C4AD1C; Influenza A Positive (Negative); Influenza B2 Negative (Negative)
[2021-06-29 12:29] VITALS: O2SAT 91
== END 2021-06-29 13:23 | disposition home or self-care (01) ==
PROVIDERS: Nurse Practitioner Family; Emergency Provider Emergency Medicine; PCP Hospitalist
DX: J10.1 Influenza due to other identified influenza virus with other respiratory manifestations (principal); R06.02 Shortness of breath; R07.89 Other chest pain; R42 Dizziness and giddiness; Z20.822 Contact with and (suspected) exposure to COVID-19; Z79.899 Other long term (current) drug therapy; Z87.891 Personal history of nicotine dependence
CPT/HCPCS: 71046; 80053; 83735; 83880; 84484; 85025; 87502; 87635; 93005; 99283

== ENCOUNTER → 2021-07-09 09:21 | Outpatient (BNVA) | payer MEDICARE, SELFPAY | PROVIDERS: Visit Provider Physician Assistant | DX: M75.81 Other shoulder lesions, right shoulder (principal) | CPT/HCPCS: 99212 ==

== ENCOUNTER → 2021-11-26 12:15 | Outpatient (BNVA) | payer MEDICARE, SELFPAY | PROVIDERS: PCP Family Medicine; Referring Provider Family Medicine; Visit Provider Internal Medicine Cardiovascular Disease | DX: I10 Essential (primary) hypertension (principal); E78.5 Hyperlipidemia, unspecified; Z95.1 Presence of aortocoronary bypass graft | CPT/HCPCS: 93005; 99212 ==

== ENCOUNTER 2021-12-03 10:44 | Outpatient (REF) | payer MEDICARE, SELFPAY ==
[2021-12-03 14:13] LABS: MANUAL DIFF FLAG NO
[2021-12-03 14:22] LABS: Basophils Absolute Auto 0.1 X10*3/uL (0.0-0.2); Basophils Percent Auto 0.9 % (0-2); Eosinophils Absolute Auto 0.2 X10*3/uL (0.0-0.4); Eosinophils Percent Auto 2.1 % (0-4); Hemoglobin 14.9 g/dl (12.0-16.0); Imm Gran Abs Auto 0.02 X10*3/uL (0.00-0.03); Imm Gran Pct Auto 0.3 % (0.0-0.4); Lymphocytes Absolute Auto 2.6 X10*3/uL (1.2-4.9); Lymphocytes Percent Auto 33.5 % (20-40); Mean Corpuscular HGB Conc 32.4 g/dl (31.0-35.0); Mean Corpuscular Hemoglobin 29.1 pg (27.0-33.0); Mean Corpuscular Volume 89.8 fL (80.0-98.0); Mean Platelet Volume 11.8 fL (9.4-12.3); Monocytes Absolute Auto 0.7 X10*3/uL (0.1-1.2); Monocytes Percent Auto 8.8 % (2-11); Neutrophils Absolute Auto 4.2 x10*3/uL (2.0-8.3); Neutrophils Percent Auto 54.4 % (45-73); Platelet Count 211 X10*3/uL (160-400); Red Blood Count 5.12 X10*6/uL (4.20-5.50); Red Cell Distribution Width 12.7 % (11.0-16.0); White Blood Count 7.8 X10*3/uL (4.8-10.8)
[2021-12-03 15:02] LABS: Alanine Aminotransferase 36 U/L (0-31); Albumin Level 4.3 g/dL (3.5-5.0); Alkaline Phosphatase 131 U/L (39-117); Anion Gap 17 (12-20); Aspartate Amino Transferase 24 U/L (5-31); Bilirubin Total 0.3 mg/dL (0.0-1.0); Blood Urea Nitrogen 13 mg/dL (9-16); Calcium 9.1 mg/dL (8.4-10.2); Carbon Dioxide 29 mmol/L (22-29); Chloride 100 mmol/L (96-108); Cholesterol 261 mg/dL; Estimated Glomerular Filt Rate > 60; Glucose Random 128 mg/dL (60-115); HDL Cholesterol 44 mg/dL; LDL Cholesterol Calculated 161 mg/dl; Sodium 142 mmol/L (135-145); Total Protein 7.5 g/dL (6.5-8.0); Triglycerides 281 mg/dL
[2021-12-03 15:24] LABS: TSH reflex Free T4 1.45 uIU/mL (0.32-4.0)
[2021-12-05 09:46] LABS: LDL Cholesterol Direct 174 mg/dL (<100)
== END 2021-12-03 10:45 | disposition home or self-care (01) ==
LOC: HO.WFDLDS 10:44
PROVIDERS: Visit Provider Family Medicine
DX: Z00.00 Encounter for general adult medical examination without abnormal findings (principal); E78.5 Hyperlipidemia, unspecified; R23.2 Flushing; R73.01 Impaired fasting glucose; I25.10 Atherosclerotic heart disease of native coronary artery without angina pectoris; I10 Essential (primary) hypertension
CPT/HCPCS: 36415; 80053; 80061; 83721; 84443; 85025

== ENCOUNTER → 2021-12-16 10:03 | Outpatient (BNVA) | payer MEDICARE, SELFPAY | PROVIDERS: PCP Family Medicine; Visit Provider Internal Medicine Endocrinology, Diabetes & Metabolism | DX: R23.2 Flushing (principal) | CPT/HCPCS: 99202 ==

== ENCOUNTER 2021-12-24 07:32 | Outpatient (REF) | payer MEDICARE, SELFPAY ==
--- NOTE | ~2021-12-24 | MM_ITS ---
EXAMINATION: MM SCREENING DIGITAL BREAST TOMOSYNTHESIS, BILATERAL CLINICAL INFORMATION: Screening. Asymptomatic. The lifetime risk of breast cancer based on the Tyrer-Cuzick Model is 2.3%. COMPARISON: Mammography: April 08, 2016 and studies dating back to April 02, 2009 TECHNIQUE: Digital breast tomosynthesis is performed in both the craniocaudal and mediolateral oblique views along with computer-aided detection (CAD). Synthesized 2D images are generated from the tomosynthesis. FINDINGS: There are scattered areas of fibroglandular density (ACR BI-RADS breast composition Category b). There are no significant masses, abnormal calcifications, or other abnormalities. MM/MM tomosynthesis screening BI IMPRESSION: No significant changes from prior exam. ASSESSMENT: BI-RADS 1: Negative RECOMMENDATION: Routine annual mammography screening. This patient's information was entered into a reminder system with a target due date for their next mammogram.
== END 2021-12-24 07:33 | disposition home or self-care (01) ==
LOC: HO.MAMMO 07:32
PROVIDERS: PCP Family Medicine; Visit Provider Family Medicine
DX: Z12.31 Encounter for screening mammogram for malignant neoplasm of breast (principal)
CPT/HCPCS: 77063; 77067

== ENCOUNTER 2021-12-25 08:16 | Outpatient (REF) | payer MEDICARE, SELFPAY ==
[2021-12-25 08:52] LABS: MANUAL DIFF FLAG NO
[2021-12-25 09:13] LABS: Basophils Absolute Auto 0.1 X10*3/uL (0.0-0.2); Eosinophils Absolute Auto 0.2 X10*3/uL (0.0-0.4); Eosinophils Percent Auto 2.2 % (0-4); Hemoglobin 14.6 g/dl (12.0-16.0); Imm Gran Abs Auto 0.06 X10*3/uL (0.00-0.03); Imm Gran Pct Auto 0.9 % (0.0-0.4); Lymphocytes Absolute Auto 2.5 X10*3/uL (1.2-4.9); Lymphocytes Percent Auto 36.2 % (20-40); Mean Corpuscular HGB Conc 32.4 g/dl (31.0-35.0); Mean Corpuscular Hemoglobin 29.7 pg (27.0-33.0); Mean Corpuscular Volume 91.6 fL (80.0-98.0); Mean Platelet Volume 10.5 fL (9.4-12.3); Monocytes Absolute Auto 0.4 X10*3/uL (0.1-1.2); Monocytes Percent Auto 6.1 % (2-11); Neutrophils Absolute Auto 3.7 x10*3/uL (2.0-8.3); Neutrophils Percent Auto 53.6 % (45-73); Platelet Count 222 X10*3/uL (160-400); Red Blood Count 4.91 X10*6/uL (4.20-5.50); Red Cell Distribution Width 13.1 % (11.0-16.0); White Blood Count 6.9 X10*3/uL (4.8-10.8)
[2021-12-25 09:40] LABS: Anion Gap 13 (12-20); Blood Urea Nitrogen 20 mg/dL (9-16); Carbon Dioxide 29 mmol/L (22-29); Chloride 104 mmol/L (96-108); Potassium 4.3 mmol/L (3.3-5.1); Sodium 142 mmol/L (135-145)
[2021-12-25 09:41] LABS: Alanine Aminotransferase 32 U/L (0-31); Alkaline Phosphatase 118 U/L (39-117); Aspartate Amino Transferase 21 U/L (5-31); Bilirubin Total 0.4 mg/dL (0.0-1.0); Calcium 9.5 mg/dL (8.4-10.2); Cholesterol 237 mg/dL; Estimated Glomerular Filt Rate > 60; Glucose Fasting 125 mg/dL (60-99); HDL Cholesterol 42 mg/dL; LDL Cholesterol Calculated 144 mg/dl; Total Protein 7.1 g/dL (6.5-8.0); Triglycerides 256 mg/dL
[2021-12-25 10:15] LABS: Appearance Urine Cloudy; Color Urine Yellow; Glucose Urine UA Negative (Negative); Leukocyte Esterase Urine Moderate (2+) (Negative); Nitrite Urine Negative (Negative); PH 5.5 (5.0-9.0); Specific Gravity - Urine 1.025 (1.005-1.025); UMIC TRIGGER UA YES; Urine Blood Negative (Negative); Urine Ketones Negative (Negative); Urine Protein Negative (Neg-Trace)
[2021-12-25 10:21] LABS: Bacteria Urine None Seen (None Seen); Hyaline Casts Urine 0-2 /LPF (0-2); RBC Urine 0-2 /HPF (0-2); WBC Urine >50 /HPF (0-5)
[2021-12-25 10:46] LABS: Creatinine Urine 179.98 mg/dL; Microalbum/Creatinine Ratio Ur 16.1 ug/mg cr
[2021-12-26 14:56] LABS: Follicle Stimulating Hormone 49.6 mIU/mL; Lutenizing Hormone 27.7 mIU/mL
[2021-12-30 13:36] LABS: Metanephrine, Free <25 pg/mL (<=57); Normetanephrines, Free 75 pg/mL (<=148); Total Metanephrine, Free 75 pg/mL (<=205)
== END 2021-12-25 08:17 | disposition home or self-care (01) ==
LOC: HO.WFDLDS 08:16
PROVIDERS: Visit Provider Family Medicine
DX: Z00.00 Encounter for general adult medical examination without abnormal findings (principal); R23.2 Flushing; I10 Essential (primary) hypertension; E78.5 Hyperlipidemia, unspecified
CPT/HCPCS: 36415; 80053; 80061; 81001; 81003; 82043; 83001; 83002; 83835; 84443; 85025

== ENCOUNTER → 2022-02-11 08:45 | Outpatient (BNVA) | payer MEDICARE, SELFPAY | PROVIDERS: PCP Family Medicine; Referring Provider Family Medicine; Visit Provider Physician Assistant | DX: Z01.818 Encounter for other preprocedural examination (principal); D68.51 Activated protein C resistance; I25.10 Atherosclerotic heart disease of native coronary artery without angina pectoris; Z79.01 Long term (current) use of anticoagulants | CPT/HCPCS: 99212 ==

== ENCOUNTER 2022-03-10 10:51 | Emergency (ER) | payer MEDICARE, SELFPAY ==
--- NOTE | 2022-03-10 11:35 | ED_ITS ---
HPI - Back Pain/Injury General Chief Complaint: Back Pain/Injury Stated Complaint: Back Pain No Injury Time Seen by Provider: 03/10/22 11:42 Source: patient Mode of arrival: ambulatory History of Present Illness HPI Narrative: 71-year-old male with past medical history of CAD, diabetes, HTN, factor 5 Leiden, HLD, SVT, presenting to the ED complaining of right-sided low back pain x2 weeks. Denies known injury, trauma, fall. Denies radiation of pain, numbness/tingling, weakness, urine incontinence/retention, fever, hematuria, flank pain MD elicited complaint: back pain Onset (ago): week(s) Related Data Home Medications Medication Instructions Recorded Confirmed multivitamin 1 tab PO DAILY 07/24/20 02/03/22 apixaban 2.5 mg tablet (Eliquis) 1 tab PO DAILY 09/16/20 02/03/22 Previous Rx's Medication Instructions Recorded aspirin 81 mg tablet,delayed 81 mg PO DAILY #1 tab 11/27/20 release (Adult Aspirin Regimen) gabapentin 100 mg capsule 200 - 300 mg PO BID #540 caps 03/27/21 paroxetine HCl 30 mg tablet 30 mg PO DAILY 90 days #90 tabs 04/28/21 chlorpheniramine-acetaminophen 2 2 tab PO Q6H PRN sinus symptoms 06/26/21 mg-325 mg tablet (Coricidin HBP #28 tabs Cold and Flu) metoprolol succinate 25 mg 12.5 mg PO DAILY 90 days #45 tabs 08/20/21 tablet,extended release 24 hr colchicine 0.6 mg tablet 0.6 mg PO DAILY #30 tabs 10/13/21 metformin 500 mg tablet 750 mg PO DAILY 90 days #135 tabs 11/19/21 losartan 50 mg tablet 50 mg PO DAILY 30 days #30 tabs 12/29/21 fluticasone propionate 50 1 spray intranasal BID 30 days #16 12/31/21 mcg/actuation nasal grams spray,suspension (Flonase Allergy Relief) furosemide 40 mg tablet 40 mg PO DAILY 90 days #90 tabs 02/02/22 bisacodyl 5 mg tablet,delayed 10 mg PO ONCE colonoscopy prep 1 02/11/22 release (Dulcolax (bisacodyl)) day #2 tabs polyethylene glycol 3350 17 238 g PO ONCE 1 day #238 grams 02/11/22 gram/dose oral powder (Miralax) acetaminophen 500 mg tablet 500 mg PO Q6H PRN fever or pain 03/10/22 (Tylenol Extra Strength) #14 tabs cyclobenzaprine 5 mg tablet 5 mg PO Q8H PRN pain (scale score 03/10/22 7-10) 5 days #14 tabs lidocaine 5 % topical patch 1 patch topical DAILY PRN pain #30 03/10/22 (Lidoderm) ea prednisone 20 mg tablet 40 mg PO DAILY 5 days #10 tabs 03/10/22 Allergies Allergy/AdvReac Type Severity Reaction Status Date / Time oxycodone [OXYCODONE] Allergy Mild NAUSEA & Verified 02/11/22 08:51 VOMITING, auditory hallucination, hallucinations bupropion [From WELLBUTRIN] AdvReac Mild NAUSEA & Verified 02/11/22 08:51 VOMITING Review of Systems Review of Systems: Constitutional: No Fever, No Chills ENT/Mouth: No Ear Pain, No Nasal Congestion, No Sinus Pain, No Hoarseness, No sore throat, No Rhinorrhea, No Swallowing Difficulty Cardiovascular: No Chest Pain, No SOB Respiratory: No Cough, No Sputum, No Wheezing Gastrointestinal: No Nausea, No Vomiting, No Diarrhea, No Constipation, No Abdo tracee pain Genitourinary: No Dysuria, No Urinary Frequency, No Hematuria, No Urinary Incontinence/retention, No Flank Pain Musculoskeletal: + joint pain, No Myalgias, No Joint Swelling Skin: No Skin Lesions, No rash Neuro: No Weakness, No Numbness, No Paresthesias Yes all other systems are reviewed and are negative Constitutional: Constitutional: Reports as per HPI Neurologic: Denies Sensory deficit (Neuro) [facility] Past Medical History Attestation statement: The following information was validated with the patient. Medical History CAD (coronary artery disease) Diabetes type 2, controlled Essential hypertension Factor 5 Leiden mutation, heterozygous Flushing Hyperlipidemia Hypertension PSVT (paroxysmal supraventricular tachycardia) Uterine cancer Surgical History History of hysterectomy History of open heart surgery History of surgery Family History Family History Sister Lung cancer Stroke Father Heart attack Mother Heart attack Son Diabetes Brother Parkinsons Brother Diverticulitis Social History Social History Household Members: None Household Members Other:: , 1 son cardiac@ 48 Housing: House Alcohol intake: never Patient Tobacco Use Status: Former Tobacco user Quit Date: age 22 Tobacco use type: Cigarette Years Smoked: 6 +/- e-Cigarette/Vaping Use: Never Used Second Hand Smoke Exposure: No Advance Directives: Yes Advance Directives Information Provided: Yes Advance Directives on File: No service: No Current occupational status: retired 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 Current occupational exposures/hazards: No Cognitive needs: No Hearing needs: No Vision needs: No Physical Exam Vital Signs: Vital Signs: Last Vital Signs Temp 97.1 F 03/10/22 11:37 Pulse 80 03/10/22 11:37 Resp 20 03/10/22 11:37 BP 177/86 H 03/10/22 11:37 Pulse Ox 96 03/10/22 11:37 O2 Del Method 03/10/22 11:37 BMI result Body Mass Index 38.4 Const: General: cooperative, healthy appearing and no acute distress Orientation/consciousness: patient oriented x3 Limitations: no limitations HEENT: Head: Yes normal to inspection and Yes atraumatic Ears: hearing grossly normal bilaterally General nose exam: Normal external nose present Face and sinus: Yes normal facial exam Eyes: General: appearance normal, both eyes and all related structures EOM: EOMs intact bilaterally Neck: Neck: Yes normal visual inspection and Yes no meningeal signs Resp: Effort & Inspection: normal respiratory effort and no respiratory distress Cardio: Rate: regular rate Heart sounds: S1 normal heart sound present and S2 normal heart sound present Peripheral pulses: Peripheral pulses 2+ throughout GI: Inspection: Yes normal to inspection Palpation (GI): Soft to palpation, nontender, no guarding and not rigid : General: Yes no CVA tenderness Back/Spine/Pelvis: Other: No midline thoracic/lumbar spinous tenderness/step-off or deformity. + right sided lower lumbar paraspinal tenderness Back: no CVA tenderness Skin: Rashes: no rashes Wounds: no wounds Neuro: Other: Strength intact throughout. No saddle anesthesia. Sensation intact to light touch. Neurovascular intact distally General: patient oriented x3, gait normal, tone normal, moves all extremities, no meningeal signs and no focal motor deficits Gait exam (Neuro): Normal gait present Motor exam (neuro): 5/5 motor strength present throughout Sensory Exam: No Sensory deficit (Neuro) Extrem: General: Yes normal to inspection Medical Decision Making Medical Decision Making MDM Narrative: 71-year-old male with past medical history of CAD, diabetes, HTN, factor 5 Leiden, HLD, SVT, presenting to the ED complaining of right-sided low back pain x2 weeks. On exam VSS, NAD, nontoxic appearing, no midline spinous tenderness t hroughout, right-sided lumbar paraspinal tenderness noted, no red flag symptoms, no saddle anesthesia, ambulating with steady gait. Concern for MSK pain/strain vs spasming. Low suspicion for cauda equina, cord compression, fracture or epidural abscess plan: Pain control Results discussed with patient including worrisome signs and symptoms and strict return precautions, and when to return to the emergency department. They verbalized understanding and feel safe for discharge at this time. Differential Diagnosis Differential Diagnoses: The differential diagnosis associated with the presentation includes as above Discharge Plan Discharge Clinical Impression: Back pain Patient Disposition: Home, Self-Care Instructions: Acute Low Back Pain (ED) Additional Instructions: Your pain is likely musculoskeletal/possible herniated disc Flexeril is a muscle relaxer, take at night as it makes you drowsy, do not drive, drink alcohol, or operate machinery while taking it Prednisone is a steroid to help with inflammation Lidoderm patches are numbing patches, apply to painful area In addition take Tylenol at home If symptoms persist or worsen, pain becomes unbearable, you developed urinary retention or incontinence, or weakness return to the ED Prescriptions: New prednisone 20 mg tablet 40 mg PO DAILY 5 Days Qty: 10 0RF acetaminophen [Tylenol Extra Strength] 500 mg tablet 500 mg PO Q6H PRN (Reason: fever or pain) Qty: 14 0RF lidocaine [Lidoderm] 5 % adhesive patch,medicated 1 patch topical DAILY MDD remove after 12 hours PRN (Reason: pain) Qty: 30 0RF Rx Instructions: leave on most painful area for up to 12 hrs cyclobenzaprine 5 mg tablet 5 mg PO Q8H PRN (Reason: pain (scale score 7-10)) 5 Days Qty: 14 0RF No Action gabapentin 100 mg capsule 200 - 300 mg PO BID Qty: 540 3RF paroxetine HCl 30 mg tablet 30 mg PO DAILY 90 Days Qty: 90 2RF metoprolol succinate 25 mg tablet extended release 24 hr 12.5 mg PO DAILY 90 Days Qty: 45 3RF colchicine 0.6 mg tablet 0.6 mg PO DAILY Qty: 30 3RF metformin 500 mg tablet 750 mg PO DAILY 90 Days Qty: 135 3RF fluticasone propionate [Flonase Allergy Relief] 50 mcg/actuation spray,suspension 1 spray intranasal BID 30 Days Qty: 16 3RF Rx Instructions: administer into each nostril furosemide 40 mg tablet 40 mg PO DAILY 90 Days Qty: 90 3RF multivitamin Tablet 1 tab PO DAILY Eliquis 2.5 mg tablet 1 tab PO DAILY losartan 50 mg tablet 50 mg PO DAILY 30 Days Qty: 30 1RF Coricidin HBP Cold and Flu 2-325 mg tablet 2 tab PO Q6H PRN (Reason: sinus symptoms) Qty: 28 1RF aspirin [Adult Aspirin Regimen] 81 mg tablet,delayed release (DR/EC) 81 mg PO DAILY Qty: 1 0RF polyethylene glycol 3350 [Miralax] 17 gram/dose powder 238 g PO ONCE 1 Days Qty: 238 0RF Rx Instructions: Take as directed by mouth the day before your procedure. bisacodyl [Dulcolax (bisacodyl)] 5 mg tablet,delayed release (DR/EC) 10 mg PO ONCE 1 Days Qty: 2 0RF Rx Instructions: Take 2 tablets by mouth at 12:00pm the day before your procedure. Referrals: Obdulio Sabillon MD [Primary Care Provider] - 5 days Interventions: ED Discharge Assessment Last Done: 03/10/22 11:48
[2022-03-10 11:37] VITALS: BP 177/86; PULSE 80; RESP 20; TEMP 36.2; O2SAT 96; BMI 38.4
--- OUTSIDE RECORDS SUMMARY | 2022-03-10 11:46 | XMS_ITS ---
:1950 Author Care Team Providers Name Role Phone Tameka Hinojosa Primary Care Provider Unavailable Allergies Code Code System Name Reaction Severity Status Onset 7804 RxNorm Oxycodone ? ? Active ? Medications Name Status Start Date Stop Date ? ? gabapentin 100 mg capsule Active ? Not av ailable hydrochlorothiazide 25 mg tablet Active ? Not available lisinopril 40 mg tablet Active ? Not avai lable metoprolol tartrate 25 mg tablet Active ? Not available oxybutynin chloride 5 mg tablet Active ? Not available paroxetine 20 mg tablet Active ? Not avai lable Zithromax Z-Andrew 250 mg tablet Active ? No t available TAKE 2 TABLETS (500 MG) BY ORAL ROUTE O NCE DAILY FOR 1 DAY THEN 1 TABLET (250 MG) BY ORAL ROUTE ONCE DAILY FOR 4 DAYS Problems None recorded. Procedures Date Name Performed by ? 10/28/2018 XR, Chest, 2 View [facility] [address] [place] [address] (Work Place) Results Lab Results None recorded. Past Encounters None recorded. Social History Tobacco Smoking Status Never Smoker Vaccine List None recorded. Plan of Care Reminders Provider Appointments None recorded. ? ? Lab None recorded. ? ? Referral None recorded. ? ? Procedures None recorded. ? ? Surgeries None recorded. ? ? Imaging None recorded. ? ? Vitals Blood Pressure 139/58 mm[Hg]
== END 2022-03-10 11:49 | disposition home or self-care (01) ==
PROVIDERS: Emergency Provider Emergency Medicine; PCP Family Medicine
DX: M54.50 Low back pain, unspecified (principal); E11.9 Type 2 diabetes mellitus without complications; I10 Essential (primary) hypertension; E78.5 Hyperlipidemia, unspecified; Z79.01 Long term (current) use of anticoagulants; Z79.82 Long term (current) use of aspirin; Z79.899 Other long term (current) drug therapy; Z79.84 Long term (current) use of oral hypoglycemic drugs; Z87.891 Personal history of nicotine dependence
CPT/HCPCS: 99282; 99283

== ENCOUNTER → 2022-04-17 08:02 | Outpatient (BNVA) | payer MEDICARE, SELFPAY | PROVIDERS: PCP Family Medicine; Visit Provider Internal Medicine Endocrinology, Diabetes & Metabolism | DX: R23.2 Flushing (principal); R19.7 Diarrhea, unspecified | CPT/HCPCS: 99212 ==

== ENCOUNTER 2022-04-21 08:54 | Outpatient (REF) | payer MEDICARE, SELFPAY ==
[2022-04-21 14:01] LABS: Total Volume 24 Hour Urine 2750 mL
[2022-04-21 15:18] LABS: Creatinine, 24Hr Urine 1.4 G/Day (1.0-2.0); Creatinine, mg/dL 49.49
[2022-05-05 14:54] LABS: Hydroindolacetic Acid,5- 4.3 mg/24 h (< OR = 6.0); Total Volume 2750 mL
== END 2022-04-21 08:55 | disposition home or self-care (01) ==
LOC: HO.10HDLNP 08:54
PROVIDERS: Visit Provider Internal Medicine Endocrinology, Diabetes & Metabolism
DX: R23.2 Flushing (principal)
CPT/HCPCS: 81050; 82570; 83497

== ENCOUNTER → 2022-05-13 08:49 | Outpatient (BNVA) | payer MEDICARE, SELFPAY | PROVIDERS: PCP Family Medicine; Referring Provider Family Medicine; Visit Provider Internal Medicine Cardiovascular Disease | DX: I10 Essential (primary) hypertension (principal); D68.51 Activated protein C resistance; R00.2 Palpitations; Z95.1 Presence of aortocoronary bypass graft | CPT/HCPCS: 99212 ==

== ENCOUNTER → 2022-05-18 08:31 | Outpatient (REF) | payer MEDICARE, SELFPAY ==
--- NOTE | 2022-05-18 08:35 | HM_ITS ---
Conclusion: 1. Patient was monitored for total period of 13 days and 22 hours 2. Baseline was normal sinus rhythm with average heart of 66 beats per minute 3. No significant pauses noted 4. Rare PACs and PVCs noted 5. Four total SVT events, longest lasting 8 beats and the fastest at 133 beats per minute 6. Patient reported 9 events which correlated with isolated PVCs MTDD
== END ==
LOC: HO.CARD 08:31
PROVIDERS: PCP Family Medicine; Visit Provider Internal Medicine Cardiovascular Disease
DX: R00.2 Palpitations (principal)
CPT/HCPCS: 93246

== ENCOUNTER → 2022-09-09 08:50 | Outpatient (BNVA) | payer MEDICARE, SELFPAY | PROVIDERS: PCP Family Medicine; Visit Provider Internal Medicine Cardiovascular Disease | DX: R00.2 Palpitations (principal); I20.8 Other forms of angina pectoris; E78.5 Hyperlipidemia, unspecified; Z95.1 Presence of aortocoronary bypass graft | CPT/HCPCS: 93005; 99212 ==

== ENCOUNTER 2022-10-14 08:21 | Outpatient (REF) | payer MEDICARE, SELFPAY ==
[2022-10-14 11:58] LABS: Appearance Urine Turbid; Color Urine Yellow; Glucose Urine UA Negative (Negative); Leukocyte Esterase Urine Moderate (2+) (Negative); Nitrite Urine Negative (Negative); Specific Gravity - Urine 1.025 (1.005-1.025); UMIC TRIGGER UA YES; Urine Blood Negative (Negative); Urine Ketones Negative (Negative); Urine Protein Trace mg/dL (Neg-Trace)
[2022-10-14 11:59] LABS: Estimated Average Glucose 126 mg/dL
[2022-10-14 12:02] LABS: Bacteria Urine None Seen (None Seen); Hyaline Casts Urine 0-2 /LPF (0-2); WBC Urine 21-50 /HPF (0-5)
[2022-10-14 12:24] LABS: Cholesterol 196 mg/dL; HDL Cholesterol 45 mg/dL; LDL Cholesterol Calculated 106 mg/dl; Triglycerides 229 mg/dL
[2022-10-14 12:26] LABS: Creatinine Urine 265.83 mg/dL
== END 2022-10-14 08:22 | disposition home or self-care (01) ==
LOC: HO.WFDLDS 08:21
PROVIDERS: Internal Medicine Cardiovascular Disease; Visit Provider Family Medicine
DX: Z00.00 Encounter for general adult medical examination without abnormal findings (principal); I25.10 Atherosclerotic heart disease of native coronary artery without angina pectoris; R73.01 Impaired fasting glucose; I10 Essential (primary) hypertension; E78.5 Hyperlipidemia, unspecified
CPT/HCPCS: 36415; 80061; 81001; 82043; 83036; 84443

== ENCOUNTER 2022-10-21 10:43 | Outpatient (AMB) | payer MEDICARE, SELFPAY ==
--- NOTE | 2022-10-21 10:48 | MHC.PC.OV ---
Vital Signs 10/21/22 11:14 Height 5 ft 2 in Weight 216 lb 8 oz BMI 39.6 BP 144/66 H Blood Pressure Location Rt brachial Position Sitting Respiration 12 Pulse 71 Temp 97.5 F Temp Source Temporal Artery Scan Pulse Oximetry (%) 96 Oxygen Delivery Method Room Air Intake Visit Reasons: medication follow up Intake Note: Patient states that Dr. Hooks put her on Repatha 140MG and she cannot take any of the statins. Patient would also like a demonstration on how to administer the drug. Patient would like to increase her antidepressants. Patient states that she has been going through alot of losses. Director Supply Required: No Accompanied by: Self / Same As Patient Allergies rosuvastatin Allergy (Severe, Verified 10/21/22 11:22) Muscle cramps Aubihdo-ISZ-HiM Reductase Inhibitor Allergy (Severe, Verified 10/21/22 11:22) Muscle cramps oxycodone [OXYCODONE] Allergy (Mild, Verified 10/21/22 11:22) NAUSEA & VOMITING, auditory hallucination, hallucinations atorvastatin Adverse Reaction (Severe, Verified 10/21/22 11:22) muscle aches/Terrible leg pain bupropion [From WELLBUTRIN] Adverse Reaction (Mild, Verified 10/21/22 11:22) NAUSEA & VOMITING Medication List - Last Reconciled 10/21/22 by Obdulio Sabillon MD acetaminophen (Tylenol Extra Strength) 500 mg PO Q6H PRN apixaban (Eliquis) 2.5 mg PO BID aspirin (Adult Aspirin Regimen) 81 mg PO DAILY colchicine (gout) 0.6 mg PO DAILY evolocumab (Repatha SureClick) 140 mg subcut Q2W ezetimibe 10 mg PO DAILY fluticasone propionate 50 mcg/actuation (Flonase Allergy Relief) 1 spray intranasal BID 30 days furosemide 40 mg PO DAILY 90 days gabapentin 300 mg PO DAILY lidocaine 5% (Lidoderm) 1 patch topical DAILY PRN MDD remove after 12 hours losartan 50 mg PO DAILY 30 days metformin 750 mg (1.5 x 500 mg) PO DAILY 90 days metoprolol succinate ER 12.5 mg (1/2 x 25 mg) PO DAILY 90 days multivitamin 1 tab PO DAILY paroxetine HCl 30 mg PO DAILY 90 days Tobacco use date assessed: 10/21/22 Fall risk assessment: 2 + Falls in past year Last assessed Fall Risk: 10/21/22 Dental Screening Dental Screen Date: 10/21/22 Did you have a dental visit in the last 12 months?: No Did you have a dental problem in the last 6 months where you did not have access to dental care?: No Was dental information given to patient?: Yes HPI medication follow up HPI Details 71 y/o female presents today to f/u medications. Patient states that Dr. Hooks put her on Repatha 140MG and she cannot take any of the statins. Patient would also like a demonstration on how to administer the drug. Patient would like to increase her antidepressants. Patient states that she has been going through significant losses - she had lost her brother last week. [facility] Medical History CAD (coronary artery disease) Diabetes type 2, controlled Essential hypertension Factor 5 Leiden mutation, heterozygous Flushing Hyperlipidemia Hypertension PSVT (paroxysmal supraventricular tachycardia) Uterine cancer Surgical History History of hysterectomy History of open heart surgery History of surgery Family History Sister Lung cancer Stroke Father Heart attack Mother Heart attack Son Diabetes Brother Parkinsons Lung cancer Brother Diverticulitis Social History (Updated 09/09/22 @ 09:12 by MEME Moser) Household Members: None Household Members Other:: , 1 son cardiac@ 48 Housing: House Alcohol intake: never Patient Tobacco Use Status: Former Tobacco user Quit Date: age 22 Years Smoked: 6 +/- e-Cigarette/Vaping Use: Never Used Second Hand Smoke Exposure: No service: No 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 Justice Panda, Ruthie Chavira, Rm Sexton and colleagues, with an educational jim from [employer] Physical exam (Primary Care) Vital Signs: Last Vital Signs Temp 97.5 F 10/21/22 11:14 Pulse 71 10/21/22 11:14 Resp 12 10/21/22 11:14 BP 144/66 H 10/21/22 11:14 Pulse Ox 96 10/21/22 11:14 Oxygen Delivery Method Room Air 10/21/22 11:14 BMI result Body Mass Index 39.6 Tobacco/Smoking Status: Tobacco use Status Tobacco use date assessed 12/03/21 10/21/22 10:50 Patient Tobacco Use Status Former Tobacco user 10/21/22 10:50 Tobacco use type 09/09/22 09:31 e-Cigarette/Vaping Use Never Used 10/21/22 10:50 Thrive Assessment: Date of Thrive Assessment Date Thrive assessed 03/25/22 10/21/22 10:50 Assessment and Plan Assessment & Plan (1) Depression with anxiety: Code(s): F41.8 - Other specified anxiety disorders Plan: Acute adjustment disorder after the of her brother last week superimposed on some depression from the loss of her spouse She has been on paroxetine and I have increase this to 40 mg daily She has not had a therapist in quite some time and I will ask the nurse navigator to help connect her with a therapist Encouraged her regular exercise and activities as tolerated Has family supports and friends and I encouraged her to maintain these as best she can also. Denies any plans for self-harm or harming others. No current or recent SI/HI. And contracts for safety (2) Acute adjustment disorder: Code(s): F43.20 - Adjustment disorder, unspecified Plan: As above (3) Hyperlipidemia: Code(s): E78.5 - Hyperlipidemia, unspecified Plan: Started on Zetia and Repatha of by cardiology Tolerating Zetia. She tried to administer Repatha but not had difficulty with self-injection and likely did not get her 1st dose. She will try again. Advise she may want to have a friend help her with administration of this medication until she is used to it. She can also discuss with her pharmacist to can review how to administer this medication. Follow-up with Cardiology (4) CAD (coronary artery disease): Comment: Code(s): I25.10 - Atherosclerotic heart disease of [place] coronary artery without angina pectoris Plan: Stable Follow-up with Cardiology Medications: Changed From paroxetine HCl 30 mg PO DAILY 90 days 90 tabs 2RF To paroxetine HCl 40 mg PO DAILY 90 days 90 tabs 2RF Coding Level of Care Code Est Pt Level 4 (59851) Diagnoses Depression with anxiety F41.8 Acute adjustment disorder F43.20 Hyperlipidemia E78.5 CAD (coronary artery disease) I25.10
[2022-10-21 11:14] VITALS: BP 144/66; PULSE 71; RESP 12; TEMP 36.4; O2SAT 96; BMI 39.6
== END 2022-10-21 11:42 | disposition home or self-care (01) ==
PROVIDERS: PCP Family Medicine; Visit Provider Family Medicine
DX: F41.8 Other specified anxiety disorders (principal); F43.20 Adjustment disorder, unspecified; E78.5 Hyperlipidemia, unspecified; I25.10 Atherosclerotic heart disease of native coronary artery without angina pectoris
CPT/HCPCS: 99214

== ENCOUNTER 2022-11-18 09:40 | Outpatient (AMB) | payer MEDICARE, SELFPAY ==
--- NOTE | 2022-11-18 09:45 | A.OFFPC_ITS ---
Vital Signs 11/18/22 09:46 Height 5 ft 2 in Weight 216 lb 4 oz BMI 39.5 BP 132/70 Blood Pressure Location Lt brachial Position Sitting Respiration 12 Pulse 62 Pulse Source Pulse Oximeter Temp 97.3 F Temp Source Temporal Artery Scan Pulse Oximetry (%) 98 Oxygen Delivery Method Room Air Intake Visit Reasons: f/u depression/anxiety Intake Note: Patient is wondering about what vaccinations she need to get again. Belt Weaver Required: No Accompanied by: Self / Same As Patient Allergies rosuvastatin Allergy (Severe, Verified 11/18/22 09:51) Muscle cramps [id number] Reductase Inhibitor Allergy (Severe, Verified 11/18/22 09:51) Muscle cramps oxycodone [OXYCODONE] Allergy (Mild, Verified 11/18/22 09:51) NAUSEA & VOMITING, auditory hallucination, hallucinations atorvastatin Adverse Reaction (Severe, Verified 11/18/22 09:51) muscle aches/Terrible leg pain bupropion [From WELLBUTRIN] Adverse Reaction (Mild, Verified 11/18/22 09:51) NAUSEA & VOMITING Tobacco use date assessed: 10/21/22 Fall risk assessment: 2 + Falls in past year Last assessed Fall Risk: 11/18/22 Dental Screening Dental Screen Date: 11/18/22 Did you have a dental visit in the last 12 months?: No Did you have a dental problem in the last 6 months where you did not have access to dental care?: No Was dental information given to patient?: Yes HPI f/u depression/anxiety HPI Details 71 y/o female presents to f/u depression /anxiety. Had increased her paroxetine and referred her to nurse navigator for help connecting with a therapist. She reports she thinks the increase in paroxetine has been helping her. She notes a therapist has not contacted her yet. She also reports she has been trying to set up an appt. for a colonoscopy but has been having difficulty with this. [facility] Medical History Flushing Factor 5 Leiden mutation, heterozygous CAD (coronary artery disease) PSVT (paroxysmal supraventricular tachycardia) Hyperlipidemia Diabetes type 2, controlled Essential hypertension Uterine cancer Hypertension Surgical History History of surgery History of open heart surgery History of hysterectomy Family History Sister Lung cancer Stroke Father Heart attack Mother Heart attack Son Diabetes Brother Parkinsons Lung cancer Brother Diverticulitis Other Mental health disorder Substance abuse Social History Household Members: None Household Members Other:: , 1 son cardiac@ 48 Housing: House Alcohol intake: never Patient Tobacco Use Status: Former Tobacco user Quit Date: age 22 Years Smoked: 6 +/- e-Cigarette/Vaping Use: Never Used Second Hand Smoke Exposure: No service: No Current occupational status: retired 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 1. Little interest or pleasure in doing things: more than half the days 2. Feeling down, depressed, or hopeless: more than half the days 3. Trouble falling or staying asleep, or sleeping too much: nearly every day 4. Feeling tired or having little energy: nearly every day 5. Poor appetite or overeating: nearly every day 6. Feeling bad about yourself - or that you are a failure or have let yourself or your family down: more than half the days 7. Trouble concentrating on things, such as reading the newspaper or watching television: more than half the days 8. Moving or speaking so slowly that other people could have noticed. Or the opposite - being so fidgety or restless that you have been moving around a lot more than usual: more than half the days 9. Thoughts that you would be better off or of hurting yourself in some way: not at all Total score: 19 Depression Screening Interpretation: Positive 06445 - PHQ-9 Billing: Yes Source: Developed by Drs. Justice Panda, Ruthie Chavira, Rm Sexton and colleagues, with an educational jim from [employer]. Thrive Questionnaire Date Thrive assessed: 03/25/22 EMMANUELLE-7 AMB Questionnaire EMMANUELLE-7 Date EMMANUELLE - 7 assessed: 11/18/22 Feeling nervous, anxious, or on edge: 2 = More than half the days Not being able to stop or control worryin = Several days Worrying too much about different things: 2 = More than half the days Trouble relaxin = More than half the days Being so restless that it is hard to sit still: 2 = More than half the days Becoming easily annoyed or irritable: 1 = Several days Feeling afraid as if something awful might happen: 2 = More than half the days Total EMMAUNELLE-7 score (0-4 normal; 5-9 mild; 10-14 moderate; 15-21 severe): 12 Source: Developed by Drs. Justice Panda, Ruthie Chavira, Rm Sexton and colleagues, with an educational jim from [employer]. EMMANUELLE-7 Assessment Billing EMMANUELLE-7 Assessment Tool: EMMANUELLE-7 Assessment 39534 Review of Systems Const Denies chills, Denies fatigue, Denies fever(s), Denies headache(s) and Denies weakness ENT Denies dizziness and Denies headache(s) Card Denies chest pain, Denies lightheadedness, Denies dyspnea and Denies other (Palpitations) Resp Denies cough, Denies dyspnea, Denies wheezing and Denies other ( shortness of breath) Musc Denies numbness and Denies tingling Neuro Denies dizziness, Denies headache(s), Denies numbness, Denies tingling, Denies paresthesias and Denies weakness Psych Reports anxiety and Reports depression Endo Denies fatigue Aller/Immun Denies wheezing Physical exam (Primary Care) Vital Signs: Last Vital Signs Temp 97.3 F 11/18/22 09:46 Pulse 62 11/18/22 09:46 Resp 12 11/18/22 09:46 BP 132/70 11/18/22 09:46 Pulse Ox 98 11/18/22 09:46 Oxygen Delivery Method Room Air 11/18/22 09:46 BMI result Body Mass Index 39.5 Tobacco/Smoking Status: Tobacco use Status Tobacco use date assessed 10/21/22 11/18/22 09:55 Patient Tobacco Use Status Former Tobacco user 11/18/22 09:55 Tobacco use type 09/09/22 09:31 e-Cigarette/Vaping Use Never Used 11/18/22 09:55 PHQ-9: PHQ-9 Score PHQ-9: Total score 19 11/18/22 10:14 Depression Screening Interpretation: Positive Thrive Assessment: Date of Thrive Assessment Date Thrive assessed 03/25/22 11/18/22 09:55 Const General: no acute distress and well developed Nutritional Appearance: well nourished Orientation/consciousness: patient oriented x3 HENMT Head: Yes normocephalic and Yes atraumatic Eyes General: appearance normal, both eyes and all related structures Pupils: Equal, round and reactive pupils present EOM: EOMs intact bilaterally Resp Effort & Inspection: normal respiratory effort Auscultation: clear to auscultation bilaterally Cardio Rate: regular rate Rhythm: regular rhythm Heart sounds: S1 normal heart sound present, S2 normal heart sound present, no gallops, no murmurs and no rubs Neuro General: patient oriented x3 and gait normal Cranial nerves: Yes Equal, round and reactive pupils present Psych Affect: normal affect Assessment and Plan Assessment & Plan (1) Depression with anxiety: Code(s): F41.8 - Other specified anxiety disorders Plan: Ongoing depression and anxiety. Patient is still scoring rather high for PHQ-9 and emmanuelle 7 however she a subjectively notes that she is much improved with increase in paroxetine. Declined additional adjunct medications. She is working on getting regular exercise and social contact. Had referred her to nurse navigators to help connect her with a therapist but she has not heard anything from them yet so I will ask them to reach out to her. Continue paroxetine and above therapies (2) Screening for colon cancer: Code(s): Z12.11 - Encounter for screening for malignant neoplasm of colon Plan: Has not heard back from GI regarding colonoscopy. Ordering Cologuard test Advised she continue to work at contacting GI for follow-up (3) CAD (coronary artery disease): Comment: Code(s): I25.10 - Atherosclerotic heart disease of [place] coronary artery without angina pectoris Plan: She is scheduled to follow-up with Cardiology regarding coronary artery disease and they are discussing a pacer implant. Follow-up with Cardiology as recommended (4) Immunization counseling: Code(s): Z71.85 - Encounter for immunization safety counseling Plan: Recommend she get COVID shot next week when the newest update of COVID vaccine will be available She is already immunized for influenza She has had 1 of her to pneumonia shots and is due for the next 1. She can get this at her pharmacy Also recommended she inquire about RSV vaccine Orders: Orders Complete Blood Count Auto Diff Today Z00.00 - Encounter for general adult medical examination without abnormal findings Microalbumin, Random (w Creat) Today I10 - Essential (primary) hypertension UA and rflx microscopic Today Z00.00 - Encounter for general adult medical examination without abnormal findings Comprehensive [place]. Panel Fast Today Z00.00 - Encounter for general adult medical examination without abnormal findings Lipid Panel Today Z00.00 - Encounter for general adult medical examination without abnormal findings TSH reflex Free T4 Today Z00.00 - Encounter for general adult medical examination without abnormal findings Referrals Cologuard Test Z12.11 - Encounter for screening for malignant neoplasm of col on, Z12.12 - Encounter for screening for malignant neoplasm of rectum Coding Level of Care Code Est Pt Level 4 (64926) Diagnoses Depression with anxiety F41.8 Screening for colon cancer Z12.11 CAD (coronary artery disease) I25.10 Immunization counseling Z71.85 Additional Codes EMMANUELLE-7 Assessment Billing - EMMANUELLE-7 Assessment Tool: EMMANUELLE-7 Assessment [id number] ([id number])
[2022-11-18 09:46] VITALS: BP 132/70; PULSE 62; RESP 12; TEMP 36.3; O2SAT 98; BMI 39.5
== END 2022-11-18 10:33 | disposition home or self-care (01) ==
PROVIDERS: PCP Family Medicine; Visit Provider Family Medicine
DX: F41.8 Other specified anxiety disorders (principal); Z12.11 Encounter for screening for malignant neoplasm of colon; I25.10 Atherosclerotic heart disease of native coronary artery without angina pectoris; Z71.85 Encounter for immunization safety counseling
CPT/HCPCS: 99214

== ENCOUNTER 2023-01-20 09:22 | Outpatient (AMB) | payer MEDICARE, SELFPAY ==
[2023-01-20 09:30] VITALS: BP 122/60; PULSE 67; BMI 38.9
--- NOTE | 2023-01-20 09:30 | MHC.OFFVIS ---
Intake Vital Signs 01/20/23 09:30 Height 5 ft 2 in Weight 212 lb 8.41 oz BMI 38.9 BP 122/60 Blood Pressure Location Lt brachial Position Sitting Pulse 67 Pulse Source Pulse Oximeter Intake Visit Reasons: 4 mth f/up Intake Note: 4 month follow up [employer]enger [employer] Required: No Accompanied by: Self / Same As Patient Allergies rosuvastatin Allergy (Severe, Verified 01/20/23 09:32) Muscle cramps [id number] Reductase Inhibitor Allergy (Severe, Verified 01/20/23 09:32) Muscle cramps oxycodone [OXYCODONE] Allergy (Mild, Verified 01/20/23 09:32) NAUSEA & VOMITING, auditory hallucination, hallucinations atorvastatin Adverse Reaction (Severe, Verified 01/20/23 09:32) muscle aches/Terrible leg pain bupropion [From WELLBUTRIN] Adverse Reaction (Mild, Verified 01/20/23 09:32) NAUSEA & VOMITING Medication List - Last Reconciled 01/20/23 by Familia Rene MD acetaminophen (Tylenol Extra Strength) 500 mg PO Q6H PRN apixaban (Eliquis) 2.5 mg PO BID aspirin (Adult Aspirin Regimen) 81 mg PO DAILY colchicine (gout) 0.6 mg PO DAILY evolocumab (Repatha SureClick) 140 mg subcut Q2W ezetimibe 10 mg PO DAILY fluticasone propionate 50 mcg/actuation (Flonase Allergy Relief) 1 spray intranasal BID 30 days furosemide 40 mg PO DAILY 90 days gabapentin 300 mg (3 x 100 mg) PO DAILY 30 days lidocaine 5% (Lidoderm) 1 patch topical DAILY PRN MDD remove after 12 hours losartan 50 mg PO DAILY 30 days metformin 750 mg (1.5 x 500 mg) PO DAILY 90 days metoprolol succinate ER 12.5 mg (1/2 x 25 mg) PO DAILY 90 days multivitamin 1 tab PO DAILY paroxetine HCl 40 mg PO DAILY 90 days HPI HPI Comments History of Present Illness Details 72-year-old female here for follow-up. She has background of bypass surgery. She also had PE in the past and has factor 5 Leiden. She has been on Eliquis 2.5 mg twice a day. She also had a pericardial effusion after surgery which was drained. She has small effusion based on echocardiography in August. She was complaining of hot flashes. She said she went into menopause in her late 40s to early 50s. She notes she gets significant flushing and hot feeling. This is not associated with any diarrhea. She had chest discomfort or shortness of breath. She was seen by endocrinology. 05/13/22: she returns for follow-up. She has been taking Eliquis once a day. She also is complaining of a lot of palpitations. Previously she had cardiac event monitor in July of 2021 which did not show any atrial fibrillation. She is saying she is getting episodes of palpitations up to 3 times a week. She also gets sweating when she gets the palpitations. She previously had SVT which was few years ago. She was referred for 14 day Holter monitor. She was also advised to increase the apixaban to 2.5 mg twice a day. 09/09/22: She returns for follow-up. She had Holter monitor done on 05/18/2022. Her underlying rhythm was sinus with average heart rate 66 beats per minute, rare premature atrial complexes and PVCs. For total SVT events longest lasting 8 beats and the fastest 133 beats per minute. Patient's symptoms correlated more with isolated premature ventricular complexes. She has stopped taking rosuvastatin because of muscle cramps. She is denying any palpitations on follow-up. She has no other symptoms. No bleeding concerns. Blood pressure control is good. 09/19/2022: She returns for follow-up. She is saying that she has been more depressed recently. Mostly because of inability to tolerate exercise due to knee arthritis. She is saying her antidepressants for increased recently. She is saying that she had sleep apnea but has not be using the mask and has not followed up with anyone. She thinks symptoms are mostly due to depression currently. She is getting fatigue and more sleepiness during the daytime. [facility] Medical History Flushing Factor 5 Leiden mutation, heterozygous CAD (coronary artery disease) PSVT (paroxysmal supraventricular tachycardia) Hyperlipidemia Diabetes type 2, controlled Essential hypertension Uterine cancer Hypertension Surgical History History of surgery History of open heart surgery History of hysterectomy Family History Sister Lung cancer Stroke Father Heart attack Mother Heart attack Son Diabetes Brother Parkinsons Lung cancer Brother Diverticulitis Other Mental health disorder Substance abuse Social History Household Members: None Household Members Other:: , 1 son cardiac@ 48 Housing: House Alcohol intake: never Patient Tobacco Use Status: Former Tobacco user Quit Date: age 22 Years Smoked: 6 +/- e-Cigarette/Vaping Use: Never Used Second Hand Smoke Exposure: No service: No Current occupational status: retired 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 Current occupational exposures/hazards: No Cognitive needs: No Hearing needs: No Vision needs: No Review of Systems Const Denies weakness ENT Denies dizziness Card Denies chest pain, Denies chest pain with activity, Denies syncope, Denies rapid heart rate, Denies pedal edema, Denies edema, Denies leg edema, Denies lightheadedness, Denies palpitations, Denies dyspnea, Denies dyspnea on exertion and Denies orthopnea Resp Denies cough, Denies dyspnea and Denies dyspnea on exertion GI Denies hematochezia and Denies change in stool character Musc Denies abnormal gait, Denies muscle cramps, Denies muscle weakness, Denies numbness, Denies radiating pain into limb and Denies tingling Neuro Denies abnormal gait, Denies dizziness, Denies syncope, Denies numbness, Denies tingling and Denies weakness Endo Denies palpitations Physical Exam Vital Signs: Last Vital Signs Pulse 67 01/20/23 09:30 BP 122/60 01/20/23 09:30 BMI result Body Mass Index 38.9 GENERAL APPEARANCE: in no acute distress, pleasant. NECK/THYROID: no carotid bruit, no jugular venous distention. SKIN: Midline sternotomy wound. Well-healed. HEART: no murmurs, regular rate and rhythm. LUNGS: clear to auscultation bilaterally. ABDOMEN: soft, nontender. EXTREMITIES: no edema. PERIPHERAL PULSES: equal. NEUROLOGIC: No gross deficits, AAO X 3 Assessment & Plan Assessment & Plan (1) Stable angina: Code(s): I20.8 - Other forms of angina pectoris (2) S/P CABG x 3: Code(s): Z95.1 - Presence of aortocoronary bypass graft Plan Pleasant 72-year-old female who is here for follow-up. She has known history of coronary disease with previous coronary artery bypass surgery. She is stable from cardiovascular point of view otherwise. She is complaining of some fatigue and daytime sleepiness. She is saying she is depressed due to her knee arthritis. She is considering to do surgery in . Taking apixaban 2.5 mg twice a day for factor 5 Leiden.. No bleeding issues. I have advised her to consider seeing sleep medicine if these symptoms do not improve with adjustment of antidepressants. She will see us back in few months. Thank you for allowing me to participate in the care of your patient. Please feel free to contact me if you have any questions. Coding Level of Care Code Est Pt Level 4 (56753) Diagnoses Stable angina I20.8 S/P CABG x 3 Z95.1
== END 2023-01-20 09:52 | disposition home or self-care (01) ==
PROVIDERS: PCP Family Medicine; Visit Provider Internal Medicine Cardiovascular Disease
DX: I20.8 Other forms of angina pectoris (principal); Z95.1 Presence of aortocoronary bypass graft
CPT/HCPCS: 99214

== ENCOUNTER → 2023-01-20 09:22 | Outpatient (BNVA) | payer MEDICARE, SELFPAY | PROVIDERS: PCP Family Medicine; Visit Provider Internal Medicine Cardiovascular Disease | DX: I20.89 Other forms of angina pectoris (principal); I10 Essential (primary) hypertension; D68.51 Activated protein C resistance; Z95.1 Presence of aortocoronary bypass graft; Z86.711 Personal history of pulmonary embolism; Z79.01 Long term (current) use of anticoagulants | CPT/HCPCS: 99212 ==

== ENCOUNTER 2023-02-09 07:21 | Outpatient (REF) | payer MEDICARE, SELFPAY ==
[2023-02-09 10:36] LABS: MANUAL DIFF FLAG NO
[2023-02-09 10:50] LABS: Appearance Urine Cloudy; Color Urine Yellow; Glucose Urine UA Negative (Negative); Leukocyte Esterase Urine Moderate (2+) (Negative); Nitrite Urine Negative (Negative); Specific Gravity - Urine 1.025 (1.005-1.025); UMIC TRIGGER UA YES; Urine Blood Trace (Negative); Urine Ketones Negative (Negative); Urine Protein Negative (Neg-Trace)
[2023-02-09 10:51] LABS: Basophils Absolute Auto 0.1 X10*3/uL (0.0-0.2); Basophils Percent Auto 1.1 % (0-2); Eosinophils Absolute Auto 0.2 X10*3/uL (0.0-0.4); Eosinophils Percent Auto 2.9 % (0-4); Hematocrit 44.6 % (37.0-47.0); Hemoglobin 14.3 g/dl (12.0-16.0); Imm Gran Abs Auto 0.02 X10*3/uL (0.00-0.03); Imm Gran Pct Auto 0.3 % (0.0-0.4); Lymphocytes Percent Auto 43.4 % (20-40); Mean Corpuscular HGB Conc 32.1 g/dl (31.0-35.0); Mean Corpuscular Volume 93.5 fL (80.0-98.0); Mean Platelet Volume 11.3 fL (9.4-12.3); Monocytes Absolute Auto 0.5 X10*3/uL (0.1-1.2); Neutrophils Absolute Auto 3.2 x10*3/uL (2.0-8.3); Neutrophils Percent Auto 45.3 % (45-73); Platelet Count 201 X10*3/uL (160-400); Red Blood Count 4.77 X10*6/uL (4.20-5.50)
[2023-02-09 11:22] LABS: Bacteria Urine Trace (None Seen); Calcium Oxalate Crystals Urine Present; Hyaline Casts Urine 0-2 /LPF (0-2); Squamous Epithelial Cell Urine 0-2 /HPF (0-2); WBC Urine >50 /HPF (0-5)
[2023-02-09 12:40] LABS: Creatinine Urine 132.65 mg/dL; Microalbum/Creatinine Ratio Ur 18.8 ug/mg cr (<30)
[2023-02-09 13:01] LABS: Alanine Aminotransferase 34 U/L (0-31); Albumin Level 3.7 g/dL (3.5-5.0); Alkaline Phosphatase 88 U/L (39-117); Anion Gap 11 (12-20); Aspartate Amino Transferase 22 U/L (5-31); Bilirubin Total 0.3 mg/dL (0.0-1.0); Blood Urea Nitrogen 18 mg/dL (9-16); Calcium 9.2 mg/dL (8.4-10.2); Carbon Dioxide 29 mmol/L (22-29); Chloride 106 mmol/L (96-108); Cholesterol 110 mg/dL (<200); Estimated Glomerular Filt Rate > 60; Glucose Fasting 132 mg/dL (60-99); HDL Cholesterol 47 mg/dL (>40); LDL Cholesterol Calculated 41 mg/dL (<100); Potassium 4.4 mmol/L (3.3-5.1); Sodium 142 mmol/L (135-145); TSH reflex Free T4 2.07 uIU/mL (0.32-4.0); Total Protein 6.9 g/dL (6.5-8.0); Triglycerides 113 mg/dL (<150)
== END 2023-02-09 07:22 | disposition home or self-care (01) ==
LOC: HO.WFDLDS 07:21
PROVIDERS: Visit Provider Family Medicine
DX: Z00.00 Encounter for general adult medical examination without abnormal findings (principal); I10 Essential (primary) hypertension
CPT/HCPCS: 36415; 80053; 80061; 81001; 82043; 82570; 84443; 85025

== ENCOUNTER 2023-02-12 10:50 | Outpatient (AMB) | payer MEDICARE, SELFPAY ==
[2023-02-12 10:55] VITALS: BP 124/78; PULSE 64; O2SAT 97; BMI 39.0
--- NOTE | 2023-02-12 10:55 | MHC.PC.OV ---
Vital Signs 02/12/23 10:55 Height 5 ft 2 in Weight 213 lb 8 oz BMI 39.0 BP 124/78 Blood Pressure Location Lt brachial Position Sitting Pulse 64 Pulse Source Pulse Oximeter Pulse Oximetry (%) 97 Oxygen Delivery Method Room Air Intake Visit Reasons: Extended exam with f/u labs and health maintenance Intake Note: Patient is here for extended exam with follow up on labs and health maintenance. Patient is scheduled to have gel shots in her knees. Allergies rosuvastatin Allergy (Severe, Verified 02/12/23 11:00) Muscle cramps Flkyaor-TBL-PcC Reductase Inhibitor Allergy (Severe, Verified 02/12/23 11:00) Muscle cramps oxycodone [OXYCODONE] Allergy (Mild, Verified 02/12/23 11:00) NAUSEA & VOMITING, auditory hallucination, hallucinations atorvastatin Adverse Reaction (Severe, Verified 02/12/23 11:00) muscle aches/Terrible leg pain bupropion [From WELLBUTRIN] Adverse Reaction (Mild, Verified 02/12/23 11:00) NAUSEA & VOMITING Tobacco use date assessed: 02/12/23 Fall risk assessment: No Falls in past year Last assessed Fall Risk: 02/12/23 Dental Screening Dental Screen Date: 02/12/23 Did you have a dental visit in the last 12 months?: No Did you have a dental problem in the last 6 months where you did not have access to dental care?: No Was dental information given to patient?: No HPI Extended exam with f/u labs and health maintenance HPI Details 72 y/o female presents for an extended exam with f/u labs and health maintenance. Labs were drawn 02/09/23. Reviewed labs with pt. Elevated fasting glucose of 132 and last A1c 10/14/22 6.0%. She is on metformin 750mg daily. Triglycerides 113. TC 210. LDL 41. HDL 47. Increased urine RBC/Urine WBC. She denies any urinary symptoms. She notes it has been about 3 years since she last saw an eye doctor. She states she is up to date with her shots. A1c today 02/12/23 is 6.1%. [facility] Medical History Flushing Factor 5 Leiden mutation, heterozygous CAD (coronary artery disease) PSVT (paroxysmal supraventricular tachycardia) Hyperlipidemia Diabetes type 2, controlled Essential hypertension Uterine cancer Hypertension Surgical History History of surgery History of open heart surgery History of hysterectomy Family History Sister Lung cancer Stroke Father Heart attack Mother Heart attack Son Diabetes Brother Parkinsons Lung cancer Brother Diverticulitis Other Mental health disorder Substance abuse Social History Household Members: None Household Members Other:: , 1 son cardiac@ 48 Housing: House Alcohol intake: never Patient Tobacco Use Status: Former Tobacco user Quit Date: age 22 Years Smoked: 6 +/- e-Cigarette/Vaping Use: Never Used Second Hand Smoke Exposure: No service: No Current occupational status: retired 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 Justice Panda, Ruthie Chavira, Rm Sexton and colleagues, with an educational jim from [employer]. Review of Systems Const Denies chills, Denies fatigue, Denies fever(s), Denies headache(s) and Denies weakness Eyes Denies change in vision ENT Denies dizziness, Denies headache(s), Denies hearing loss, Denies nasal congestion, Denies sinus pain, Denies sinus pressure and Denies sore throat Card Denies chest pain, Denies lightheadedness, Denies dyspnea and Denies other (palpitations) Resp Denies cough, Denies dyspnea and Denies wheezing GI Denies abdominal pain, Denies melena, Denies hematochezia, Denies change in bowel habits, Denies dyspepsia and Denies nausea Denies hematuria and Denies dysuria Musc Denies abnormal gait, Denies myalgias, Denies arthralgias, Denies numbness and Denies tingling Skin/Breast Denies rash, Denies unusual bruising and Denies wounds Neuro Denies abnormal gait, Denies dizziness, Denies headache(s), Denies memory loss, Denies numbness, Denies Sensory deficit (Neuro), Denies tingling and Denies weakness Psych Denies anxiety, Denies depression and Denies memory loss Endo Denies cold intolerance, Denies fatigue, Denies heat intolerance, Denies polydipsia and Denies polyuria Can/Lymph Denies easy bleeding and Denies easy bruising Aller/Immun Denies wheezing Physical exam (Primary Care) Vital Signs: Last Vital Signs Pulse 64 02/12/23 10:55 BP 124/78 02/12/23 10:55 Pulse Ox 97 02/12/23 10:55 Oxygen Delivery Method Room Air 02/12/23 10:55 BMI result Body Mass Index 39.0 Tobacco/Smoking Status: Tobacco use Status Tobacco use date assessed 02/12/23 02/12/23 11:08 Patient Tobacco Use Status Former Tobacco user 02/12/23 10:59 Tobacco use type 09/09/22 09:31 e-Cigarette/Vaping Use Never Used 02/12/23 10:59 Thrive Assessment: Date of Thrive Assessment Date Thrive assessed 03/25/22 02/12/23 10:59 Const General: no acute distress, well developed, alert and awake Nutritional Appearance: well nourished Orientation/consciousness: patient oriented x3 HENMT Head: Yes normocephalic and Yes atraumatic Ears: hearing grossly normal bilaterally and TM's normal bilaterally General nose exam: Normal external nose present and Normal nares present Mouth: Normal oral and palatal mucosa present and moist mucous membranes Teeth and gingiva: dentition normal Throat: Yes posterior oropharynx normal Eyes General: appearance normal, both eyes and all related structures Pupils: Equal, round and reactive pupils present and Pupil accommodation reflex normal EOM: EOMs intact bilaterally Neck Neck: Yes normal visual inspection, Yes no lymphadenopathy and Yes trachea midline Thyroid: Thyroid normal Carotids: no bruits Lymphatic: no lymphadenopathy noted Chest Chest palpation & inspection: normal inspection of the chest Resp Effort & Inspection: normal respiratory effort Auscultation: clear to auscultation bilaterally Cardio Rate: regular rate Rhythm: regular rhythm Heart sounds: S1 normal heart sound present, S2 normal heart sound present, no gallops, no murmurs and no rubs Bruits: no abdominal aortic bruits and no carotid bruits GI Palpation (GI): No Abdominal aortic bruit present, Soft to palpation, nontender, No hepatosplenomegaly present and No Rebound tenderness present Auscultation: normal bowel sounds General: Yes no CVA tenderness Back/Spine/Pelvis Back: no CVA tenderness Cervical Spine: cervical ROM normal and No Cervical spine tenderness Thoracic/Lumbar Spine: thoraco-lumbar ROM normal, No pain with thoraco-lumbar ROM, No thoracic spinal tenderness and No lumbar spinal tenderness Skin Lesions: no lesions Rashes: no rashes Trauma: no lacerations or abrasions Wounds: no wounds Nails: normal Neuro General: patient oriented x3 Cranial nerves: Yes Equal, round and reactive pupils present Cognition (Neuro): normal cognition Gait exam (Neuro): Normal gait present Motor exam (neuro): 5/5 motor strength present throughout Sensory Exam: No Sensory deficit (Neuro) Deep tendon reflexes (DTR's): Right patellar reflex intensity grade: 2+ and Left patellar reflex intensity grade: 2+ Extrem General: Yes normal to inspection and No edema Psych Appearance: grossly normal Affect: normal affect Attitude: cooperative Thought process: Normal thought process present Office Procedures Flu Questionnaire Does the patient have a severe egg allergy?: No Does the patient have severe life threatening allergies?: No Does the patient have a fever or illness today?: No Has the patient ever had Guillain-[place] Syndrome?: No Has the patient ever had any past reaction to a flu shot?: No Results AMB Hemoglobin A1c AMB Hemoglobin A1c 6.1 % Last Edit by Erin Gonzales CMA on 02/12/23 11:47 Immunizations flu vacc [id number] 6mos up(PF) 60 mcg(15 mcgx4)/0.5 mL IM syringe Performing Provider: Obdulio Sabillon MD Performing Location: [facility] Documented (not given) by: Erin Gonzales CMA on 02/12/23 11:36 Reason Not Given: Received Previously Assessment and Plan Assessment & Plan (1) Microscopic hematuria: Code(s): R31.29 - Other microscopic hematuria Plan: Patient?is?asymptomatic Recheck?urinalysis?and?urine?cytology (2) CAD (coronary artery disease): Comment: Code(s): I25.10 - Atherosclerotic heart disease of [place] coronary artery without angina pectoris Plan: Stable Follow-up?with?Cardiology?as?recommended (3) Hyperlipidemia: Code(s): E78.5 - Hyperlipidemia, unspecified Plan: Lipids?are?controlled. She?is?on?Repatha?and?Zetia; did?not?tolerate?statins Continue?current?medication?regimen (4) Essential hypertension: Code(s): I10 - Essential (primary) hypertension Plan: Blood?pressure?is?well?controlled.??Goal?is?less?than?130/80 Continue?current?medication?regimen (5) Elevated liver transaminase level: Code(s): R74.01 - Elevation of levels of liver transaminase levels Plan: Check Liver enzymes Pt notes history of cyst (6) Back pain: Code(s): M54.9 - Dorsalgia, unspecified Plan: Patient?had?try?to?decrease?her?gabapentin?but?is?not?tolerating?that?well. Will?increase?gabapentin?to?300?mg?b.i.d., p.r.n.?pain (7) Diabetes type 2, controlled: Code(s): E11.9 - Type 2 diabetes mellitus without complications Plan: A1c?6.1%?is?good?control.??Goal?is?less?than?7.0% Continue?current?medication?regimen Has?not?seen?her?eye?doctor?in?a?few?years?due?to?insurance/finances. Encouraged?her?to?see?her?eye?doctor?soon?as?she?is?able (8) Screening for breast cancer: Code(s): Z12.39 - Encounter for other screening for malignant neoplasm of breast Plan: Overdue?for?mammogram?and?this?is?ordered (9) Screening for osteoporosis: Code(s): Z13.820 - Encounter for screening for osteoporosis Plan: Due?for?bone?density?test?which?is?ordered (10) Screening for colon cancer: Code(s): Z12.11 - Encounter for screening for malignant neoplasm of colon Plan: Patient?says?she?has?determine?that?her?last?colonoscopy?was?8?years?ago?and?she?was?told?to?follow-up?in?10?years She?should?follow-up?in?2?more?years?with?[facility]?gastroenterology (11) Immunization counseling: Code(s): Z71.85 - Encounter for immunization safety counseling Plan: Up-to-date Orders: Orders MM tomosynthesis screening BI Today Z12.31 - Encounter for screening mammogram for malignant neoplasm of breast XR DEXA axial skeleton Today M81.0 - Age-related osteoporosis without current pathological fracture UA and rflx microscopic Today R31.29 - Other microscopic hematuria, Z00.00 - Encounter for general adult medical examination without abnormal findings Influenza [id number] Immunization Today Z23 - Encounter for immunization AMB Hemoglobin A1c Today Z13.9 - Encounter for screening, unspecified Urine Cytology Today R31.29 - Other microscopic hematuria US abdomen allan w elastography Today R74.01 - Elevation of levels of liver transaminase levels Medications: Changed From gabapentin 300 mg (3 x 100 mg) PO DAILY 30 days 90 caps 2RF To gabapentin 300 mg (3 x 100 mg) PO Q12H 30 days 180 caps 2RF Coding Level of Care Code Est Pt Level 4 (83179) Diagnoses Microscopic hematuria R31.29 CAD (coronary artery disease) I25.10 Hyperlipidemia E78.5 Essential hypertension I10 Elevated liver transaminase level R74.01 Back pain M54.9 Diabetes type 2, controlled E11.9 Screening for breast cancer Z12.39 Screening for osteoporosis Z13.820 Screening for colon cancer Z12.11 Immunization counseling Z71.85
== END 2023-02-12 12:05 | disposition home or self-care (01) ==
PROVIDERS: PCP Family Medicine; Visit Provider Family Medicine
DX: E11.9 Type 2 diabetes mellitus without complications (principal)
CPT/HCPCS: 83036; 99214

== ENCOUNTER 2023-03-10 10:21 | Outpatient (AMB) | payer MEDICARE, SELFPAY ==
--- NOTE | 2023-03-10 10:26 | MHC.PC.OV ---
Vital Signs 03/10/23 10:27 Height 5 ft 2 in Weight 215 lb 3 oz BMI 39.4 BP 132/78 Blood Pressure Location Lt brachial Position Sitting Respiration 13 Pulse 64 Pulse Source Pulse Oximeter Pulse Oximetry (%) 96 Oxygen Delivery Method Room Air Intake Visit Reasons: Follow up Labs Intake Note: Patient is here to follow up on her labs. Patient reports her liver ultrasound, mammogram and DEXA is scheduled next week. Patient reports she has no concerns at this time. Development Coordinator Required: No Accompanied by: Self / Same As Patient Allergies rosuvastatin Allergy (Severe, Verified 03/10/23 10:32) Muscle cramps [id number] Reductase Inhibitor Allergy (Severe, Verified 03/10/23 10:32) Muscle cramps oxycodone [OXYCODONE] Allergy (Mild, Verified 03/10/23 10:32) NAUSEA & VOMITING, auditory hallucination, hallucinations atorvastatin Adverse Reaction (Severe, Verified 03/10/23 10:32) muscle aches/Terrible leg pain bupropion [From WELLBUTRIN] Adverse Reaction (Mild, Verified 03/10/23 10:32) NAUSEA & VOMITING Tobacco use date assessed: 02/12/23 HPI Follow up Labs HPI Details 72 y/o female presents to f/u diabetes. Last A1c 02/12/23 6.1%. She reports she has been tolerating Repatha well. [facility] Medical History Flushing Factor 5 Leiden mutation, heterozygous CAD (coronary artery disease) PSVT (paroxysmal supraventricular tachycardia) Hyperlipidemia Diabetes type 2, controlled Essential hypertension Uterine cancer Hypertension Surgical History History of surgery History of open heart surgery History of hysterectomy Family History Sister Lung cancer Stroke Father Heart attack Mother Heart attack Son Diabetes Brother Parkinsons Lung cancer Brother Diverticulitis Other Mental health disorder Substance abuse Social History Household Members: None Household Members Other:: , 1 son cardiac@ 48 Housing: House Alcohol intake: never Patient Tobacco Use Status: Former Tobacco user Quit Date: age 22 Years Smoked: 6 +/- e-Cigarette/Vaping Use: Never Used Second Hand Smoke Exposure: No service: No Current occupational status: retired 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 Justice Panda, Ruthie Chavira, Rm Sexton and colleagues, with an educational jim from [employer]. Review of Systems Const Denies chills, Denies fatigue, Denies fever(s), Denies headache(s) and Denies weakness ENT Denies dizziness and Denies headache(s) Card Denies chest pain, Denies lightheadedness, Denies dyspnea and Denies other (Palpitations) Resp Denies cough, Denies dyspnea, Denies wheezing and Denies other ( shortness of breath) Musc Denies numbness and Denies tingling Neuro Denies dizziness, Denies headache(s), Denies numbness, Denies tingling, Denies paresthesias and Denies weakness Psych Denies anxiety and Denies depression Endo Denies fatigue Aller/Immun Denies wheezing Physical exam (Primary Care) Vital Signs: Last Vital Signs Pulse 64 03/10/23 10:27 Resp 13 03/10/23 10:27 BP 132/78 03/10/23 10:27 Pulse Ox 96 03/10/23 10:27 Oxygen Delivery Method Room Air 03/10/23 10:27 BMI result Body Mass Index 39.4 Tobacco/Smoking Status: Tobacco use Status Tobacco use date assessed 02/12/23 03/10/23 10:32 Patient Tobacco Use Status Former Tobacco user 03/10/23 10:32 Tobacco use type 09/09/22 09:31 e-Cigarette/Vaping Use Never Used 03/10/23 10:32 Thrive Assessment: Date of Thrive Assessment Date Thrive assessed 03/25/22 03/10/23 10:32 Const General: no acute distress and well developed Nutritional Appearance: well nourished Orientation/consciousness: patient oriented x3 HENMT Head: Yes normocephalic and Yes atraumatic Eyes General: appearance normal, both eyes and all related structures Pupils: Equal, round and reactive pupils present EOM: EOMs intact bilaterally Resp Effort & Inspection: normal respiratory effort Auscultation: clear to auscultation bilaterally Cardio Rate: regular rate Rhythm: regular rhythm Heart sounds: S1 normal heart sound present, S2 normal heart sound present, no gallops, no murmurs and no rubs Neuro General: patient oriented x3 and gait normal Cranial nerves: Yes Equal, round and reactive pupils present Psych Affect: normal affect Assessment and Plan Assessment & Plan (1) Diabetes type 2, controlled: Code(s): E11.9 - Type 2 diabetes mellitus without complications Plan: A1c?6.1%.??Good?control.??Goal?is?less?than?7.0% Continue?current?medications Continue?diabetic?diet?and?exercise (2) Screening for breast cancer: Code(s): Z12.39 - Encounter for other screening for malignant neoplasm of breast Plan: Has?upcoming?mammogram (3) Hyperlipidemia: Code(s): E78.5 - Hyperlipidemia, unspecified Plan: Tolerating?Repatha?and?Zetia Week?follow-up?on?her?lipids?at?a?subsequent?visit (4) CAD (coronary artery disease): Comment: Code(s): I25.10 - Atherosclerotic heart disease of [place] coronary artery without angina pectoris Plan: Stable.??Follow-up?with?Cardiology?as?recommended Coding Level of Care Code Est Pt Level 3 (08939) Diagnoses Diabetes type 2, controlled E11.9 Screening for breast cancer Z12.39 Hyperlipidemia E78.5 CAD (coronary artery disease) I25.10
[2023-03-10 10:27] VITALS: BP 132/78; PULSE 64; RESP 13; O2SAT 96; BMI 39.4
== END 2023-03-10 10:44 | disposition home or self-care (01) ==
PROVIDERS: PCP Family Medicine; Visit Provider Family Medicine
DX: E11.9 Type 2 diabetes mellitus without complications (principal); Z12.39 Encounter for other screening for malignant neoplasm of breast; E78.5 Hyperlipidemia, unspecified; I25.10 Atherosclerotic heart disease of native coronary artery without angina pectoris
CPT/HCPCS: 99213

== ENCOUNTER 2023-03-16 10:37 | Outpatient (REF) | payer MEDICARE, SELFPAY ==
--- NOTE | ~2023-03-16 | US_ITS ---
EXAMINATION: US ABDOMEN LIMITED WITH LIVER ELASTOGRAPHY CLINICAL INFORMATION: Elevated liver transaminases. COMPARISON: None available. TECHNIQUE: Real-time imaging of the abdominal viscera. Noninvasive ultrasound liver fibrosis assessment is performed using Armand ElastPQ point quantification shear wave elastography (2D-SWE) with a C5-2 MHz transducer. Multiple elastography samples are obtained. FINDINGS: PANCREAS: Normal. The visualized pancreatic head and body are normal in appearance. The remainder of the pancreas is obscured from visualization by the overlying bowel gas. LIVER: The liver demonstrates normal size, contour and increased echogenicity. No focal solid lesion or intrahepatic biliary duct dilatation. Within the right hepatic lobe, 3.0 cm and 1.5 cm benign, simple cysts are seen, which require no imaging follow-up. The right lobe measures 18.6 cm in length. The left lobe measures 13.3 cm in length. Portal flow is towards the liver (hepatopetal). Shear wave liver elastography median stiffness is 1.14 m/s (reference: normal median stiffness is 1.3 m/s or less). IQR/median stiffness to assess sampling precision is 0.16 (reference: good quality data set is IQR/median stiffness of 0.15 or less). GALLBLADDER: Normal. The gallbladder is physiologically distended without evidence of stones, sludge, polyps, wall thickening or pericholecystic fluid. COMMON BILE DUCT: Normal in caliber measuring 1.1 cm in diameter. RIGHT KIDNEY: Normal. No hydronephrosis. No renal calculi or focal parenchymal lesions. The kidney measures 11.4 cm in maximum dimension. FREE FLUID: None. US/US abdomen allan w elastography IMPRESSION: 1. There is mild hepatomegaly. 2. There is generalized increase in hepatic echotexture, consistent with fatty infiltration or hepatocellular disease. Please correlate clinically. No focal hepatic mass or intrahepatic biliary dilatation is seen. 3. Liver elastography: Although measurements suggest a high probability of normal liver stiffness, there is statistical variability of the sampling which decreases accuracy. REFERENCE: Society of Radiologists in Ultrasound Liver Stiffness Thresholds (2020): LIVER STIFFNESS THRESHOLDS: *Liver Stiffness equal or less than 1.3 m/s: High probability of being normal. *Liver Stiffness less than 1.7 m/s: In the absence of other known clinical signs, rules out compensated advanced chronic liver disease. *Liver Stiffness 1.7-2.1 m/s: Suggestive of compensated advanced chronic liver disease but need further test for confirmation. *Liver Stiffness over 2.1 m/s: Rules in compensated advanced chronic liver disease. *Liver Stiffness over 2.4 m/s: Suggestive of clinically significant portal hypertension. QUALITY OF DATA SET: *IQR/Median value equal or less than 0.15 implies a quality data set. *IQR/Median value over 0.15 implies a poor quality data set. SIGNIFICANT CHANGE FROM PRIOR EXAM: Significant change if liver stiffness measurement is 10% or greater from prior exam. OTHER CONSIDERATIONS: The stage of liver fibrosis may be overestimated in the setting of acute hepatitis, liver inflammation, elevated liver function tests, hepatic vascular congestion, obstructive cholestasis, non-fasting state, and infiltrative diseases such as amyloidosis and lymphoma. In some patients with NAFLD, the liver stiffness thresholds for compensated advanced chronic liver disease may be lower. In causes other than viral hepatitis and NAFLD, liver stiffness thresholds are not well established.
== END 2023-03-16 10:38 | disposition home or self-care (01) ==
LOC: HO.US 10:37
PROVIDERS: PCP Family Medicine; Visit Provider Family Medicine
DX: R74.01 Elevation of levels of liver transaminase levels (principal)
CPT/HCPCS: 76705; 76981

== ENCOUNTER 2023-03-19 06:38 | Emergency (ER) | payer MEDICARE, SELFPAY ==
--- NOTE | ~2023-03-19 | CT_ITS ---
EXAMINATION: CT HEAD WITHOUT CONTRAST CLINICAL INFORMATION: Fall on ice, head strike COMPARISON: 05/21/2020 TECHNIQUE: Contiguous axial imaging was performed from the skull base to vertex without intravenous administration of contrast. This CT examination was performed using dose optimization techniques as appropriate, variously including the following: *Automated exposure control *Adjustment of mA and/or kV according to patient size (this includes techniques or standardized protocols for targeted exams where dose is matched to indication/reason for exam; i.e. extremities or head) *Use of iterative reconstruction technique DLP: 663 mGy-cm FINDINGS: The ventricles and sulci are normal in size and configuration. No acute hemorrhage, mass effect or shift is evident. Vick-white differentiation is maintained. In the posterior fossa, the brainstem, cerebellum and fourth ventricle image normally. The orbits and calvarium are intact. The paranasal sinuses and mastoid air cells are well pneumatized and clear. CT/CT head/brain wo IV con IMPRESSION: 1. Unremarkable noncontrast brain CT. No acute hemorrhage, mass effect, fracture or shift.
--- NOTE | ~2023-03-19 | CT_ITS ---
EXAMINATION: CT CERVICAL SPINE WITHOUT CONTRAST CLINICAL INFORMATION: History of slip and fall with head strike. COMPARISON: 11/02/2017 TECHNIQUE: Noncontrast CT imaging examination of the cervical spine is performed. Axial images and multiplanar reformatted images are reviewed. This CT examination was performed using dose optimization techniques as appropriate, variously including the following: *Automated exposure control *Adjustment of mA and/or kV according to patient size (this includes techniques or standardized protocols for targeted exams where dose is matched to indication/reason for exam; i.e. extremities or head) *Use of iterative reconstruction technique DLP: 550.83 mGy-cm FINDINGS: Mild motion evident on images through the mid to lower cervical spine. The craniocervical junction is normal. The dens and atlantodental articulation are intact. Vertebral body heights are maintained. No acute fracture or prevertebral soft tissue edema. No soft tissue hematoma. Multilevel facet arthropathy. Moderate discovertebral degenerative changes at C3-C4, C5-C6 and C6-C7. Chronic negligible degenerative anterolisthesis at C4-C5. The hypertrophied uncovertebral joints at C5-C6 and C6-C7 cause at least moderate bilateral neural foraminal stenosis. Skull base is intact. The mastoid air cells are well aerated. Lung apices are unremarkable. Thyroid gland is mildly atrophied. There appears to be a stable subcentimeter sized hypodense nodule in the right thyroid lobe. No clinically significant nodule is detected. No thyroid imaging follow-up recommended. CT/CT cervical spine wo IV con IMPRESSION: No acute abnormalities in the degenerated cervical spine compared to 11/02/2017. No fracture or traumatic subluxation.
--- NOTE | ~2023-03-19 | XR_ITS ---
EXAMINATION: XR CHEST 2 VIEW CLINICAL INFORMATION: Rib pain following fall COMPARISON: 06/29/2021 TECHNIQUE: PA and lateral views of the chest obtained. FINDINGS: Changes of sternotomy and CABG are evident. The lungs are clear. There are no pleural effusions. The cardiomediastinal silhouette is normal. No rib fracture or pneumothorax is detected. XR/XR chest 2V IMPRESSION: No acute cardiopulmonary disease.
[2023-03-19 06:40] VITALS: BP 179/66; PULSE 64; RESP 16; TEMP 36.1; O2SAT 95; BMI 40.0
--- NOTE | 2023-03-19 07:14 | ED.FALL ---
HPI - Fall General Chief Complaint: Fall Stated Complaint: fall 03/14 , rib pain Time Seen by Provider: 03/19/23 06:53 Source: patient Mode of arrival: ambulatory Limitations: no limitations History of Present Illness HPI Narrative: 72 year old female with pmhx significant for T2DM, HDL, CAD s/p triple bypass (2020), NSTEMI, PSVT, HTN, uterine cancer s/p hysterectomy, factor 5 leiden mutation (on eliquis), and pulmonary embolism presents to the ED for evaluation of right rib pain s/p slip and fall 1 week ago. Patient states she was helping her neighbor shovel snow when she slipped on an ice patch in the street, causing her to fall back. Reports landing on her back and hitting the back of her head. Denies LOC. She is on Eliquis and baby aspirin. Has been taking Tylenol without relief, last dose last night. Reports ambulating with steady gait. She did not seek medical attention at time of fall. Denies headache, neck pain, vision changes, chest pain, SOB, abdominal pain, nausea vomiting, back pain, numbness/tingling/weakness of LE, saddle anesthesia, bowel or bladder incontinence or retention. Related Data Home Medications Medication Instructions Recorded Confirmed multivitamin 1 tab PO DAILY 07/24/20 02/03/23 Previous Rx's Medication Instructions Recorded aspirin 81 mg tablet,delayed 81 mg PO DAILY #1 tab 11/27/20 release (Adult Aspirin Regimen) acetaminophen 500 mg tablet 500 mg PO Q6H PRN fever or pain 03/10/22 (Tylenol Extra Strength) #14 tabs lidocaine 5 % topical patch 1 patch topical DAILY PRN pain #30 03/10/22 (Lidoderm) ea metoprolol succinate 25 mg 12.5 mg (1/2 x 25 mg) PO DAILY 90 05/08/22 tablet,extended release 24 hr days #45 tabs apixaban 2.5 mg tablet (Eliquis) 2.5 mg PO BID #100 tabs 05/13/22 paroxetine HCl 40 mg tablet 40 mg PO DAILY 90 days #90 tabs 10/21/22 losartan 50 mg tablet 50 mg PO DAILY 30 days #30 tabs 12/09/22 colchicine 0.6 mg tablet 0.6 mg PO DAILY #30 tabs 01/11/23 fluticasone propionate 50 1 spray intranasal BID 30 days #16 01/11/23 mcg/actuation nasal grams spray,suspension (Flonase Allergy Relief) metformin 500 mg tablet 750 mg (1.5 x 500 mg) PO DAILY 90 01/26/23 days #135 tabs ezetimibe 10 mg tablet 10 mg PO DAILY #30 tabs 02/10/23 furosemide 40 mg tablet 40 mg PO DAILY 90 days #90 tabs 02/10/23 gabapentin 100 mg capsule 300 mg (3 x 100 mg) PO Q12H 30 02/12/23 days #180 caps evolocumab 140 mg/mL subcutaneous 140 mg subcut Q2W #2 mL 03/09/23 pen injector (Dave Wild) baclofen 5 mg tablet 5 mg PO BEDTIME PRN muscle spasm 03/19/23 #5 tabs lidocaine 5 % topical patch 1 patch topical DAILY #15 ea 03/19/23 (Lidoderm) Allergies Allergy/AdvReac Type Severity Reaction Status Date / Time rosuvastatin Allergy Severe Muscle Verified 03/10/23 10:32 cramps Edvdlkj-CBP-EpX Reductase Allergy Severe Muscle Verified 03/10/23 10:32 Inhibitor cramps oxycodone [OXYCODONE] Allergy Mild NAUSEA & Verified 03/10/23 10:32 VOMITING, auditory hallucination, hallucinations atorvastatin AdvReac Severe muscle Verified 03/10/23 10:32 aches/Terrible leg pain bupropion [From WELLBUTRIN] AdvReac Mild NAUSEA & Verified 03/10/23 10:32 VOMITING Review of Systems Review of Systems: Constitutional: No fever, chills, fatigue, night sweats, weight changes ENT/Mouth: No ear pain, hearing loss, nasal congestion, sinus pain, rhinorrhea, sore throat Eyes: No eye pain, swelling, redness, vision changes, discharge Cardio: No chest pain, palpitations, HIGH, orthopnea, peripheral edema Pulm: No SOB, cough, sputum, wheezing, dyspnea, hemoptysis GI: No nausea, vomiting, hematemesis, abdominal pain, diarrhea, constipation, hematochezia, melena : No irregular bleeding, dysuria, frequency, urgency, hesitancy, hematuria, flank pain, urinary flow changes, urinary incontinence or retention MSK: No back pain, neck pain, joint pain, myalgias, +right rib pain Skin: No lesions, rashes Neuro: No weakness, numbness, paresthesias, LOC, dizziness, headache All other systems reviewed and are negative. PMFSH Past Medical History Onset Date is defined in the Problem List Problems that require an onset date and time if occurred within 24 hrs of arrival to the ED Aortic Dissection and Rupture; Neurologic impairment; Cardiopulmonary Arrest; Endotracheal Intubation; Insertion or Replacement of Mechanical Circulatory Assist Device Medical History Flushing Factor 5 Leiden mutation, heterozygous CAD (coronary artery disease) PSVT (paroxysmal supraventricular tachycardia) Hyperlipidemia Diabetes type 2, controlled Essential hypertension Uterine cancer Hypertension Surgical History History of surgery History of open heart surgery History of hysterectomy Family History Family History Sister Lung cancer Stroke Father Heart attack Mother Heart attack Son Diabetes Brother Parkinsons Lung cancer Brother Diverticulitis Other Mental health disorder Substance abuse Social History Social History Household Members: None Household Members Other:: , 1 son cardiac@ 48 Housing: House Alcohol intake: current Alcohol intake frequency: holidays/special occasions only Alcohol type: wine Patient Tobacco Use Status: Former Tobacco user Quit Date: age 22 Years Smoked: 6 +/- Smoked in Last 30 Days: No e-Cigarette/Vaping Use: Never Used Second Hand Smoke Exposure: No Use of substances other than those prescribed or required for medical reasons: No Advance Directives: No Advance Directives Information Provided: No service: No Current occupational status: retired 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 Current occupational exposures/hazards: No Cognitive needs: No Hearing needs: No Vision needs: No Physical Exam Vital Signs: Vital Signs: Last Vital Signs Temp 98.1 F 03/19/23 08:58 Pulse 54 03/19/23 08:58 Resp 16 03/19/23 08:58 BP 146/58 H 03/19/23 08:58 Pulse Ox 93 03/19/23 08:58 O2 Del Method Room Air 03/19/23 08:58 BMI result Body Mass Index 40.0 Vital signs stable, afebrile Const: General: cooperative, healthy appearing, comfortable, no acute distress, alert, awake and Physically active Orientation/consciousness: patient oriented x3 HEENT: Head: Yes normal to inspection, Yes No palpable skull fracture present, Yes normocephalic, Yes atraumatic, No Palencia's sign, No raccoon eyes and No periorbital ecchymosis Ears: hearing grossly normal bilaterally General nose exam: Normal external nose present and Normal septum present Face and sinus: Yes normal facial exam Eyes: General: appearance normal, both eyes and all related structures Pupils: Equal, round and reactive pupils present EOM: EOMs intact bilaterally Neck: Other: + no cervical midline spinous tenderness or step-off deformity. Neck: Yes normal visual inspection and Yes full ROM Chest: Other: + no overlying erythema, ecchymosis or deformity. Tender to palpation over the right anterolateral 7th through 10th ribs without palpable deformity or crepitus. Resp: Effort & Inspection: normal respiratory effort, able to speak in complete sentences and symmetric chest movement Auscultation: clear to auscultation bilaterally Cardio: Rate: regular rate Rhythm: regular rhythm GI: Inspection: Yes normal to inspection and No abdominal wall ecchymosis Palpation (GI): Soft to palpation, nontender, no guarding and no hepatomegaly : General: Yes no CVA tenderness Back/Spine/Pelvis: Other: No midline spinous tenderness. No paraspinal muscle tenderness. No step off deformity. Back: no CVA tenderness Skin: General skin exam: no rashes or lesions noted Neuro: Other: Strength 5/5 intact throughout. No saddle anesthesia.?Sensation intact to light touch.?Neurovascular intact distally.? General: patient oriented x3 and gait normal Cranial nerves: Yes Equal, round and reactive pupils present Gait exam (Neuro): Normal gait present Motor exam (neuro): 5/5 motor strength present throughout and Pronator motor function not present Deep tendon reflexes (DTR's): Right patellar reflex intensity grade: 2+ and Left patellar reflex intensity grade: 2+ Pupils: Normal pupillary reactivity/response: bilateral Extrem: General: Yes normal to inspection Course Course Course Narrative: 0915-- CBC without anemia or leukocytosis. Chemistry without acute electrolyte abnormality requiring intervention. Liver function WNL. Chest x-ray does not exhibit acute rib fracture or pneumothorax. CT head/brain does not show acute bleed or skull fracture. CT cervical spine does not exhibit fracture or subluxation. > discussed work up results w/ patient. symptoms may be muscular in etiology. will send baclofen and lido patches to pharmacy. Patient has remained stable throughout ED visit today. Discussed strict return precautions. All questions answered at this time. Patient is agreeable with disposition and stable for discharge. Medical Decision Making Medical Decision Making [facility] Narrative: 72 year old female with pmhx significant for T2DM, HDL, CAD s/p triple bypass (2020), NSTEMI, PSVT, HTN, uterine cancer s/p hysterectomy, factor 5 leiden mutation (on eliquis), and pulmonary embolism presents to the ED for evaluation of right rib pain s/p slip and fall 1 week ago. Patient is hypertensive to 179/66. Vitals otherwise WNL. Patient is nontoxic appearing and in no acute distress. Exam nonfocal. No midline spinous tenderness or step-off deformity. No paraspinal muscle tenderness to palpation. There is no overlying erythema, ecchymoses or obvious deformity over anterior lateral or posterior chest santana. Tender to palpation over the right anterolateral 7th- 10th ribs without palpable deformity. Lungs CTA bilaterally. Symmetric chest rise. Ambulating with steady gait. Concern for contusion, MSK sprain/strain, rib fracture, pneumothorax, pulmonary contusion. Lower suspicion for pleural effusion, ICH, CVA/TIA, skull fracture, flail chest. Although fall was 1 week ago, given patient is on Eliquis and aspirin will CT head/brain to rule out bleed. Unlikely cervical fracture, subluxation, cord compression, cauda equina. Plan for basic labs, imaging, pain control and re-evaluation. Differential Diagnosis Differential Diagnoses: The differential diagnosis associated with the presentation includes as above Admission/Observation Consideration of admission/observation: Escalation of care including admission/observation considered Lab Data [facility] Lab Attestation statement: I reviewed the patient's lab results. as above. 03/19/23 08:09 03/19/23 08:09 Labs: Lab Results 03/19/23 Range/Units 08:09 WBC 9.2 (4.8-10.8) X10*3/uL RBC 5.04 (4.20-5.50) X10*6/uL Hgb 15.0 (12.0-16.0) g/dl Hct 45.7 (37.0-47.0) % MCV 90.7 (80.0-98.0) fL MCH 29.8 (27.0-33.0) pg MCHC 32.8 (31.0-35.0) g/dl RDW 13.3 (11.0-16.0) % Plt Count 212 (160-400) X10*3/uL MPV 10.5 (9.4-12.3) fL Immature Gran % (Auto) 0.2 (0.0-0.4) % Neut % (Auto) 59.4 (45-73) % Lymph % (Auto) 31.0 (20-40) % [place] % (Auto) 6.5 (2-11) % Eos % (Auto) 2.1 (0-4) % Baso % (Auto) 0.8 (0-2) % Lymph # (Auto) 2.9 (1.2-4.9) X10*3/uL [place] # (Auto) 0.6 (0.1-1.2) X10*3/uL Eos # (Auto) 0.2 (0.0-0.4) X10*3/uL Baso # (Auto) 0.1 (0.0-0.2) X10*3/uL Abs Immat Gran (auto) 0.02 (0.00-0.03) X10*3/uL Absolute Neuts (auto) 5.5 (2.0-8.3) x10*3/uL Absolute Nucleated RBC 0.000 (0.0-0.012) X10*3/uL Nucleated RBC % (auto) 0.0 (0.0-0.2) /100WBC Sodium 140 (135-145) mmol/L Potassium 3.7 (3.3-5.1) mmol/L Chloride 105 (96-108) mmol/L Carbon Dioxide 27 (22-29) mmol/L Anion Gap 12 (12-20) BUN 20 H (9-16) mg/dL Creatinine 0.76 (0.5-1.4) mg/dL Estim Creat Clear Calc 73.6 Estimated GFR > 60 Random Glucose 134 H (60-115) mg/dL Calcium 9.0 (8.4-10.2) mg/dL Magnesium 2.0 (1.6-2.6) mg/dL Total Bilirubin 0.4 (0.0-1.0) mg/dL Direct Bilirubin 0.2 (0.0-0.5) mg/dL AST 22 (5-31) U/L ALT 30 (0-31) U/L Alkaline Phosphatase 100 (39-117) U/L Total Protein 7.5 (6.5-8.0) g/dL Albumin 4.0 (3.5-5.0) g/dL Lipase 25 (8-78) U/L Independent Interpretation I performed an independent interpretation of an: Plain X-Ray and CT Scan Interpretation: I have personally reviewed chest x-ray and agree with radiologist's interpretation. I have personally reviewed CT head/brain/C-spine and agree with radiologist's interpretation. Radiology Impression Discussion of test interpretation with radiology: I have reviewed the radiologist's reading. Radiologist Impression: XR chest 2V IMPRESSION: No acute cardiopulmonary disease. CT head/brain wo IV con IMPRESSION: 1. Unremarkable noncontrast brain CT. No acute hemorrhage, mass effect, fracture or shift. External Record Review External record reviewed: Inpatient record, Office record, Outpatient record, Prior outpatient labs, Prior outpatient radiology, Primary care record and Outside ED record Prescription Management I considered prescription management with: Pain Medication and Other (muscle relaxer) Chronic Conditions Patient?s care impacted by: Hypertension and Other (Factor 5 Leiden, PE, CAD) Social Determinants Patient?s care significantly limited by Social Determinants of Health including: Other Social Determinant of Health Discharge Plan Discharge Clinical Impression: Chest wall contusion, Accident due to mechanical fall without injury Patient Disposition: Home, Self-Care Instructions: Contusion in Adults (ED), Fall Prevention (ED), Rib Contusion (ED) Additional Instructions: Your lab work today was normal. The CT of your head/brain did not exhibit bleed. The CT of your neck did not show fracture. Your chest x-ray did not exhibit rib fracture. Your pain is likely musculoskeletal. Avoid bending, lifting, or twisting. Use ice several times per day for 20 minutes at a time for the next 48 hours and then change to heat. Baclofen is a muscle relaxer. Take this at night as it makes you drowsy. Do not drive, drink alcohol, or operate machinery while taking it. Lidoderm patches are numbing patches. Apply to painful areas. In addition you may take Tylenol and ibuprofen at home. Follow up with your primary care provider as needed If your pain worsens, if you develop new numbness, tingling, weakness, loss of bowel or bladder function call 911 or return to the ER immediately for evaluation. Prescriptions: New baclofen 5 mg tablet 5 mg PO BEDTIME PRN (Reason: muscle spasm) Qty: 5 0RF lidocaine [Lidoderm] 5 % adhesive patch,medicated 1 patch topical DAILY Qty: 15 0RF Rx Instructions: leave on most painful area for up to 12 hrs No Action metoprolol succinate 25 mg tablet extended release 24 hr 12.5 mg PO DAILY 90 Days Qty: 45 3RF losartan 50 mg tablet 50 mg PO DAILY 30 Days Qty: 30 1RF colchicine 0.6 mg tablet 0.6 mg PO DAILY Qty: 30 3RF fluticasone propionate [Flonase Allergy Relief] 50 mcg/actuation spray,suspension 1 spray intranasal BID 30 Days Qty: 16 3RF Rx Instructions: administer into each nostril metformin 500 mg tablet 750 mg PO DAILY 90 Days Qty: 135 3RF furosemide 40 mg tablet 40 mg PO DAILY 90 Days Qty: 90 3RF ezetimibe 10 mg tablet 10 mg PO DAILY Qty: 30 4RF Repatha SureClick 140 mg/mL pen injector 140 mg subcut Q2W Qty: 2 4RF Rx Instructions: Auth; Coverage Start Date:09/14/2022;Coverage End Date:10/14/2023; multivitamin Tablet 1 tab PO DAILY acetaminophen [Tylenol Extra Strength] 500 mg tablet 500 mg PO Q6H PRN (Reason: fever or pain) Qty: 14 0RF lidocaine [Lidoderm] 5 % adhesive patch,medicated 1 patch topical DAILY MDD remove after 12 hours PRN (Reason: pain) Qty: 30 0RF Rx Instructions: leave on most painful area for up to 12 hrs paroxetine HCl 40 mg tablet 40 mg PO DAILY 90 Days Qty: 90 2RF gabapentin 100 mg capsule 300 mg PO Q12H 30 Days Qty: 180 2RF aspirin [Adult Aspirin Regimen] 81 mg tablet,delayed release (DR/EC) 81 mg PO DAILY Qty: 1 0RF Eliquis 2.5 mg tablet 2.5 mg PO BID Qty: 100 3RF Referrals: Obdulio Sabillon MD [Primary Care Provider] -
[2023-03-19 08:38] LABS: MANUAL DIFF FLAG NO
[2023-03-19 08:41] LABS: Basophils Absolute Auto 0.1 X10*3/uL (0.0-0.2); Basophils Percent Auto 0.8 % (0-2); Eosinophils Absolute Auto 0.2 X10*3/uL (0.0-0.4); Eosinophils Percent Auto 2.1 % (0-4); Hematocrit 45.7 % (37.0-47.0); Imm Gran Abs Auto 0.02 X10*3/uL (0.00-0.03); Imm Gran Pct Auto 0.2 % (0.0-0.4); Lymphocytes Absolute Auto 2.9 X10*3/uL (1.2-4.9); Mean Corpuscular HGB Conc 32.8 g/dl (31.0-35.0); Mean Corpuscular Hemoglobin 29.8 pg (27.0-33.0); Mean Corpuscular Volume 90.7 fL (80.0-98.0); Mean Platelet Volume 10.5 fL (9.4-12.3); Monocytes Absolute Auto 0.6 X10*3/uL (0.1-1.2); Monocytes Percent Auto 6.5 % (2-11); Neutrophils Absolute Auto 5.5 x10*3/uL (2.0-8.3); Neutrophils Percent Auto 59.4 % (45-73); Platelet Count 212 X10*3/uL (160-400); Red Blood Count 5.04 X10*6/uL (4.20-5.50); Red Cell Distribution Width 13.3 % (11.0-16.0); White Blood Count 9.2 X10*3/uL (4.8-10.8)
[2023-03-19 08:56] LABS: Alanine Aminotransferase 30 U/L (0-31); Alkaline Phosphatase 100 U/L (39-117); Anion Gap 12 (12-20); Aspartate Amino Transferase 22 U/L (5-31); Bilirubin Direct 0.2 mg/dL (0.0-0.5); Bilirubin Total 0.4 mg/dL (0.0-1.0); Blood Urea Nitrogen 20 mg/dL (9-16); Carbon Dioxide 27 mmol/L (22-29); Chloride 105 mmol/L (96-108); Creatinine Clr Calc Pharmacy 73.6; Estimated Glomerular Filt Rate > 60; Glucose Random 134 mg/dL (60-115); Lipase 25 U/L (8-78); Potassium 3.7 mmol/L (3.3-5.1); Sodium 140 mmol/L (135-145); Total Protein 7.5 g/dL (6.5-8.0)
[2023-03-19 08:58] VITALS: BP 146/58; PULSE 54; RESP 16; TEMP 36.7; O2SAT 93
[2023-03-19] MEDS: Acetaminophen 325 MG TABLET 975 MG PO (09:14)
[2023-03-19] MEDS: Lidocaine 4 % Patch ADH..PATCH 1 PATCH TRANSDERMA (09:15)
== END 2023-03-19 09:54 | disposition home or self-care (01) ==
PROVIDERS: Physician Assistant Medical; Emergency Provider Emergency Medicine; PCP Family Medicine
DX: S20.213A Contusion of bilateral front wall of thorax, initial encounter (principal); S09.90XA Unspecified injury of head, initial encounter; M54.2 Cervicalgia; R51.9 Headache, unspecified; R07.89 Other chest pain; W01.10XA Fall on same level from slipping, tripping and stumbling with subsequent striking against unspecified object, initial encounter; Y93.9 Activity, unspecified; Y92.9 Unspecified place or not applicable; Y99.9 Unspecified external cause status; Z79.899 Other long term (current) drug therapy
CPT/HCPCS: 36415; 70450; 71046; 72125; 80048; 80076; 83690; 83735; 85025; 99284

== ENCOUNTER 2023-03-19 15:50 | Outpatient (AMB) | payer MEDICARE, SELFPAY ==
--- NOTE | 2023-03-19 15:45 | MHC.PC.OV ---
Vital Signs 03/19/23 15:46 Height 5 ft 2 in Weight 214 lb BMI 39.1 Intake Visit Reasons: f/u DEXA and liver ultrasound, [phone] Intake Note: Telehealth call with pt for Bone density results. Pt had a fall on Wednesday03/14/23 and was seen at the ED and they prescribed baclofen for muscle spasms. Township Supervisor Required: No Accompanied by: Self / Same As Patient Allergies rosuvastatin Allergy (Severe, Verified 03/19/23 15:47) Muscle cramps Mdvalwm-DES-OcM Reductase Inhibitor Allergy (Severe, Verified 03/19/23 15:47) Muscle cramps oxycodone [OXYCODONE] Allergy (Mild, Verified 03/19/23 15:47) NAUSEA & VOMITING, auditory hallucination, hallucinations atorvastatin Adverse Reaction (Severe, Verified 03/19/23 15:47) muscle aches/Terrible leg pain bupropion [From WELLBUTRIN] Adverse Reaction (Mild, Verified 03/19/23 15:47) NAUSEA & VOMITING Tobacco use date assessed: 03/19/23 Fall risk assessment: 1 Fall in past year (03/14/23) Last assessed Fall Risk: 03/19/23 Dental Screening Dental Screen Date: 03/19/23 Did you have a dental visit in the last 12 months?: No Did you have a dental problem in the last 6 months where you did not have access to dental care?: No Was dental information given to patient?: No HPI f/u DEXA and liver ultrasound, [phone] HPI Details 72 y/o female presents to f/u DEXA and liver ultrasound. Pt reports she had a fall about a week ago. She had slipped on ice. She had went to the ED and had been given muscle relaxers and lidocaine patches. Cervical spine CT 03/19/23 showed no acute abnormalities in the degenerated cervical spine compared to 11/02/2017. No fracture of traumatic subluxation. Liver ultrasound has not been read yet. Chest x-ray 03/19/23 shows no acute cardiopulmonary disease. Bone density and mammogram not until next week. Pt reports ongoing stiffness on R side of her body. [facility] Medical History Flushing Factor 5 Leiden mutation, heterozygous CAD (coronary artery disease) PSVT (paroxysmal supraventricular tachycardia) Hyperlipidemia Diabetes type 2, controlled Essential hypertension Uterine cancer Hypertension Surgical History History of surgery History of open heart surgery History of hysterectomy Family History Sister Lung cancer Stroke Father Heart attack Mother Heart attack Son Diabetes Brother Parkinsons Lung cancer Brother Diverticulitis Other Mental health disorder Substance abuse Social History Household Members: None Household Members Other:: , 1 son cardiac@ 48 Housing: House Alcohol intake: current Alcohol intake frequency: holidays/special occasions only Alcohol type: wine Patient Tobacco Use Status: Former Tobacco user Quit Date: age 22 Years Smoked: 6 +/- e-Cigarette/Vaping Use: Never Used Second Hand Smoke Exposure: No service: No Current occupational status: retired 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 1. Little interest or pleasure in doing things: not at all 2. Feeling down, depressed, or hopeless: not at all 3. Trouble falling or staying asleep, or sleeping too much: not at all 4. Feeling tired or having little energy: not at all 5. Poor appetite or overeating: not at all 6. Feeling bad about yourself - or that you are a failure or have let yourself or your family down: not at all 7. Trouble concentrating on things, such as reading the newspaper or watching television: not at all 8. Moving or speaking so slowly that other people could have noticed. Or the opposite - being so fidgety or restless that you have been moving around a lot more than usual: not at all 9. Thoughts that you would be better off or of hurting yourself in some way: not at all Total score: 0 Depression Screening Interpretation: Negative Depression Screening Done: Yes 76574 - PHQ-9 Billing: Yes Source: Developed by Drs. Justice Panda, Ruthie B.Rm Loya and colleagues, with an educational jim from [employer]. Thrive Questionnaire Date Thrive assessed: 03/19/23 I am a: Patient What is your living situation today?: I have a steady place to live Within the past 12 months, did the food you bought not last and you didn't have the money to get more?: Never true Within the past 12 months, did you worry whether your food would run out before you got money to buy more?: Never true Do you have trouble paying for medicines?: No Do you have trouble getting transportation to medical appointments?: No Do you have trouble paying your heating and electricity bill?: No Do you have trouble taking care of your child, family member or friend?: No Do you have trouble with day-to-day activities such as bathing, preparing meals, shopping, managing finances, etc.?: No Are you currently unemployed and looking for a job?: No Are you interested in more education?: No Please select the resources that you would like help with: None AUDIT C Alcohol Use Questionnaire (AUDIT-C) 1. How often do you have a drink containing alcohol?: Never 3. How often do you have six or more drinks on one occasion?: Never Total Score: 0 EMMANUELLE-7 AMB Questionnaire EMMANUELLE-7 Date EMMANUELLE - 7 assessed: 03/19/23 Feeling nervous, anxious, or on edge: 0 = Not at all Not being able to stop or control worryin = Not at all Worrying too much about different things: 0 = Not at all Trouble relaxin = Not at all Being so restless that it is hard to sit still: 0 = Not at all Becoming easily annoyed or irritable: 0 = Not at all Feeling afraid as if something awful might happen: 0 = Not at all Total EMMANUELLE-7 score (0-4 normal; 5-9 mild; 10-14 moderate; 15-21 severe): 0 Source: Developed by Drs. Justice Panda, Rm Vargas and colleagues, with an educational jim from [employer]. EMMANUELLE-7 Assessment Billing EMMANUELLE-7 Assessment Tool: EMMANUELLE-7 Assessment 72670 Review of Systems Const Denies chills, Denies fatigue, Denies fever(s), Denies headache(s) and Denies weakness ENT Denies dizziness and Denies headache(s) Card Denies dyspnea Resp Denies cough, Denies dyspnea, Denies wheezing and Denies other (shortness of breath) Musc Denies numbness and Denies tingling Neuro Denies dizziness, Denies headache(s), Denies numbness, Denies tingling and Denies weakness Psych Denies anxiety and Denies depression Endo Denies fatigue Aller/Immun Denies wheezing Physical exam (Primary Care) BMI result Body Mass Index 39.1 Tobacco/Smoking Status: Tobacco use Status Tobacco use date assessed 03/19/23 03/19/23 15:57 Patient Tobacco Use Status Former Tobacco user 03/19/23 15:50 Tobacco use type 09/09/22 09:31 e-Cigarette/Vaping Use Never Used 03/19/23 15:50 PHQ-9: PHQ-9 Score PHQ-9: Total score 0 03/19/23 15:57 Depression Screening Interpretation: Negative Thrive Assessment: Date of Thrive Assessment Date Thrive assessed 03/19/23 03/19/23 15:50 Telehealth Telehealth Location of provider rendering services: practice address Location of patient: address on file Patient Identification confirmed using: Name, : Yes Telehealth method: voice only Patient verbally consented to treatment: Yes Patient verbally consented to billing insurance company: Yes Patient informed of any privacy concerns related to visit: Yes Minutes spent on Phone/Video with Pt.: 8 Assessment and Plan Assessment & Plan (1) Back pain: Code(s): M54.9 - Dorsalgia, unspecified Plan: Patient?slipped?and?fell?on?her?back?and?right?side Contusion?of?back?shoulders?and?neck?as?well?as?right-sided?chest Had?headache?but?this?seems?to?have?resolved Continue?baclofen?and?lidocaine?patches. Holding?off?on?any?Tylenol?or?ibuprofen?as?I?am?following?her?liver?function?and?she?is?anticoagulated?with?Eliquis?and?aspirin. She?can?also?use?ice?and?he Advised?rest?if?she?gets?new?headaches?or?other?signs?of?concussion. (2) Status post fall: Code(s): Z91.81 - History of falling Plan: As?above Coding Level of Care Code Tele Est Pt Level 2 (26805) Diagnoses Back pain M54.9 Status post fall Z91.81 Additional Codes EMMANUELLE-7 Assessment Billing - EMMANUELLE-7 Assessment Tool: EMMANUELLE-7 Assessment [id number] ([id number])
[2023-03-19 15:46] VITALS: BMI 39.1
== END 2023-03-19 16:42 | disposition home or self-care (01) ==
LOC: HO.HMGFM 15:51
PROVIDERS: PCP Family Medicine; Visit Provider Family Medicine
DX: M54.9 Dorsalgia, unspecified (principal); Z91.81 History of falling
CPT/HCPCS: 99441

== ENCOUNTER 2023-03-26 09:53 | Outpatient (REF) | payer MEDICARE, SELFPAY ==
--- NOTE | ~2023-03-26 | MM_ITS ---
EXAMINATION: BONE DENSITOMETRY CLINICAL INDICATION: Age-related osteoporosis without current pathological fracture. COMPARISON: Baseline BD dated 11/22/2020. TECHNIQUE: Using a [employer] DXA System (software version: 13.1) manufactured by [employer], dual-energy x-ray absorptiometry was performed of the lumbar spine and left hip. The images are of good technical quality. Summary results are attached. FINDINGS: LEFT FEMUR, NECK: Current: BMD 0.808 g/cm2, Z-score -0.5, T-score -1.7, osteopenia. Baseline: BMD 0.836 g/cm2. LEFT FEMUR, TOTAL: Current: BMD 0.931 g/cm2, Z-score 0.2, T-score -0.6, normal, 6.9% decrease from baseline (<5% change is not significant). Baseline: BMD 1.000 g/cm2. AP SPINE L1-L4: Current: BMD 1.129 g/cm2, Z-score 0.2, T-score -0.4, normal, 2.0% decrease from baseline (<5% change is not significant). Baseline: BMD 1.152 g/cm2. IDENTIFIED RISK FACTORS: Early menopause, secondary osteoporosis, hysterectomy, bilateral oophorectomy, thiazide. HISTORY OF FRACTURE: None listed. MEDICATIONS: Calcium. MM/XR DEXA axial skeleton IMPRESSION: 1. DIAGNOSIS: Osteopenia based on the lowest T-score value of -1.7 in the femoral neck applying World Health Organization criteria. 2. 10-YEAR FRACTURE RISK PREDICTION, FRAX: Major osteoporotic fracture (clinical spine, forearm, hip or shoulder) 9.8%. Hip fracture 1.7%. 3. Treatment Recommendations: NOF guidelines recommend consideration for treatment in postmenopausal women and men age 50 and older presenting with the following: -A hip or vertebral (clinical or morphometric) fracture. -T-score less than or equal to -2.5 at the femoral neck or spine after appropriate evaluation to exclude secondary causes. -Low bone mass at the hip or spine and a 10-year fracture probability by FRAX of greater than or equal to 3% for hip fracture or greater than or equal to 20% for major osteoporotic fracture based on the [place] adapted WHO algorithm. 4. Other Recommendations: All treatment decisions require clinical judgment and consideration of individual patient factors, including patient preferences, comorbidities, previous drug use, risk factors not captured in the FRAX model (e.g. frailty, falls, vitamin D deficiency, increased bone turnover, interval significant decline in bone density) and possible under or overestimation of fracture risk by FRAX. Additional medical evaluation for secondary cause of low bone mineral density may be appropriate. FUTURE SCAN RECOMMENDATION: People with diagnosed cases of osteoporosis or at high risk for fracture should have regular bone mineral density tests. For patients eligible for Medicare, routine testing is allowed once every 2 years. The testing frequency can be increased to one year for patients who have rapidly progressing disease, those who are receiving or discontinuing medical therapy to restore bone mass, or have additional risk factors.
[2023-03-26 11:11] LABS: Urine Cytology See Pathology rpt
[2023-03-26 11:17] LABS: Appearance Urine Clear; Color Urine Yellow; Glucose Urine UA Negative (Negative); Leukocyte Esterase Urine Large (3+) (Negative); Nitrite Urine Negative (Negative); Specific Gravity - Urine 1.015 (1.005-1.025); UMIC TRIGGER UA YES; Urine Blood Negative (Negative); Urine Ketones Negative (Negative); Urine Protein Negative (Neg-Trace)
[2023-03-26 11:20] LABS: Bacteria Urine None Seen (None Seen); Hyaline Casts Urine 0-2 /LPF (0-2); RBC Urine 0-2 /HPF (0-2); Squamous Epithelial Cell Urine 0-2 /HPF (0-2); WBC Urine 21-50 /HPF (0-5)
== END 2023-03-26 09:54 | disposition home or self-care (01) ==
LOC: HO.MAMMO 09:53
PROVIDERS: PCP Family Medicine; Visit Provider Family Medicine
DX: Z12.31 Encounter for screening mammogram for malignant neoplasm of breast (principal); Z13.820 Encounter for screening for osteoporosis; M81.0 Age-related osteoporosis without current pathological fracture; R31.29 Other microscopic hematuria; Z78.0 Asymptomatic menopausal state
CPT/HCPCS: 77063; 77067; 77080; 81001; 88112

== ENCOUNTER → 2023-03-26 10:30 | Outpatient (BNV) | payer MEDICARE, SELFPAY | PROVIDERS: PCP Family Medicine; Visit Provider Radiology Diagnostic Radiology | DX: Z12.31 Encounter for screening mammogram for malignant neoplasm of breast (principal) | CPT/HCPCS: 77063; 77067 ==

== ENCOUNTER 2023-04-02 15:21 | Outpatient (AMB) | payer MEDICARE, SELFPAY ==
--- NOTE | 2023-04-02 15:15 | MHC.PC.OV ---
Intake Visit Reasons: f/u screenings Intake Note: Patient is following up on on her screenings today. Allergies rosuvastatin Allergy (Severe, Verified 04/02/23 15:18) Muscle cramps Ivrcfry-XIM-GnM Reductase Inhibitor Allergy (Severe, Verified 04/02/23 15:18) Muscle cramps oxycodone [OXYCODONE] Allergy (Mild, Verified 04/02/23 15:18) NAUSEA & VOMITING, auditory hallucination, hallucinations atorvastatin Adverse Reaction (Severe, Verified 04/02/23 15:18) muscle aches/Terrible leg pain bupropion [From WELLBUTRIN] Adverse Reaction (Mild, Verified 04/02/23 15:18) NAUSEA & VOMITING Tobacco use date assessed: 04/02/23 HPI f/u screenings HPI Details Telemedicine?encounter?to?follow-up?elevated?liver?enzymes,?mammogram?and?bone?density?test Ultrasound?showed?fatty?liver?and?some?simple?cysts?but?otherwise?negative.??Normal?elastography. Bone?density?showed?osteopenia Mammogram?has?not?been?read?and?we?are?awaiting?results. [facility] Medical History Flushing Factor 5 Leiden mutation, heterozygous CAD (coronary artery disease) PSVT (paroxysmal supraventricular tachycardia) Hyperlipidemia Diabetes type 2, controlled Essential hypertension Uterine cancer Hypertension Surgical History History of surgery History of open heart surgery History of hysterectomy Family History Sister Lung cancer Stroke Father Heart attack Mother Heart attack Son Diabetes Brother Parkinsons Lung cancer Brother Diverticulitis Other Mental health disorder Substance abuse Social History Household Members: None Household Members Other:: , 1 son cardiac@ 48 Housing: House Alcohol intake: current Alcohol intake frequency: holidays/special occasions only Alcohol type: wine Patient Tobacco Use Status: Former Tobacco user Quit Date: age 22 Years Smoked: 6 +/- e-Cigarette/Vaping Use: Never Used Second Hand Smoke Exposure: No service: No Current occupational status: retired 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 Justice Panda, Ruthie Chavira, Rm Sexton and colleagues, with an educational jim from [employer]. Review of Systems Const Denies chills, Denies fatigue, Denies fever(s), Denies headache(s) and Denies weakness ENT Denies dizziness and Denies headache(s) Card Denies chest pain, Denies lightheadedness, Denies dyspnea and Denies other (Palpitations) Resp Denies cough, Denies dyspnea, Denies wheezing and Denies other ( shortness of breath) Musc Denies numbness and Denies tingling Neuro Denies dizziness, Denies headache(s), Denies numbness, Denies tingling, Denies paresthesias and Denies weakness Psych Denies anxiety and Denies depression Endo Denies fatigue Aller/Immun Denies wheezing Physical exam (Primary Care) Tobacco/Smoking Status: Tobacco use Status Tobacco use date assessed 04/02/23 04/02/23 15:19 Patient Tobacco Use Status Former Tobacco user 04/02/23 15:16 Tobacco use type 09/09/22 09:31 e-Cigarette/Vaping Use Never Used 04/02/23 15:16 Thrive Assessment: Date of Thrive Assessment Date Thrive assessed 03/19/23 04/02/23 15:16 Telehealth Telehealth Location of provider rendering services: practice address Location of patient: address on file Patient Identification confirmed using: Name, : Yes Telehealth method: voice only Patient verbally consented to treatment: Yes Patient verbally consented to billing insurance company: Yes Patient informed of any privacy concerns related to visit: Yes Minutes spent on Phone/Video with Pt.: 10 Assessment and Plan Assessment & Plan (1) Elevated liver transaminase level: Code(s): R74.01 - Elevation of levels of liver transaminase levels Plan: Liver?ultrasound?showed?mildly?enlarged,?fatty?liver?with?a?couple?of?benign?simple?cysts?which?required?no?further?follow-up. Elastography?was?within?normal?range And?her?most?recent?liver?enzymes?are?back?within?normal?limits She?has?been?working?on?weight?loss?and?I?encouraged?this (2) Osteopenia: Code(s): M85.80 - Other specified disorders of bone density and structure, unspecified site Plan: Encouraged?weight-bearing?exercise?and?she?is?already?using?a?calcium?supplement?with?vitamin-D. Will?continue?to?follow?bone?densities?every?2?years. (3) Screening for breast cancer: Code(s): Z12.39 - Encounter for other screening for malignant neoplasm of breast Plan: Mammogram?has?not?been?read?yet.??We?can?follow-up?on?this?subsequently. Her?last?mammogram?a?year?ago?showed?no?evidence?of?malignancy. Coding Level of Care Code Tele Est Pt Level 2 (42792) Diagnoses Elevated liver transaminase level R74.01 Osteopenia M85.80 Screening for breast cancer Z12.39
== END 2023-04-02 17:00 ==
LOC: HO.HMGFM 15:21
PROVIDERS: PCP Family Medicine; Visit Provider Family Medicine
DX: R74.01 Elevation of levels of liver transaminase levels (principal); M85.80 Other specified disorders of bone density and structure, unspecified site; Z12.39 Encounter for other screening for malignant neoplasm of breast
CPT/HCPCS: 99441

== ENCOUNTER 2023-06-07 09:20 | Outpatient (AMB) | payer MEDICARE, SELFPAY ==
[2023-06-07 09:39] VITALS: BP 140/72; PULSE 64; BMI 37.7
--- NOTE | 2023-06-07 09:39 | MHC.OFFVIS ---
Intake Vital Signs 06/07/23 09:39 Height 5 ft 2 in Weight 206 lb 5.643 oz BMI 37.7 BP 140/72 H Blood Pressure Location Lt brachial Position Sitting Pulse 64 Pulse Source Pulse Oximeter Intake Visit Reasons: 4 mth f/up Intake Note: pt its here for a 4 mnth f/up/ pt states that she is doing fine. 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 Accompanied by: Self / Same As Patient Allergies rosuvastatin Allergy (Severe, Verified 04/02/23 15:18) Muscle cramps Rpyhaht-NYH-OlG Reductase Inhibitor Allergy (Severe, Verified 04/02/23 15:18) Muscle cramps oxycodone [OXYCODONE] Allergy (Mild, Verified 04/02/23 15:18) NAUSEA & VOMITING, auditory hallucination, hallucinations atorvastatin Adverse Reaction (Severe, Verified 04/02/23 15:18) muscle aches/Terrible leg pain bupropion [From WELLBUTRIN] Adverse Reaction (Mild, Verified 04/02/23 15:18) NAUSEA & VOMITING Medication List - Last Reconciled 06/07/23 by Familia Rene MD acetaminophen (Tylenol Extra Strength) 500 mg PO Q6H PRN apixaban (Eliquis) 2.5 mg PO BID aspirin (Adult Aspirin Regimen) 81 mg PO DAILY baclofen 5 mg PO BEDTIME PRN baclofen 10 mg PO DAILY colchicine 0.6 mg PO DAILY evolocumab (Repatha SureClick) 140 mg subcut Q2W ezetimibe 10 mg PO DAILY fluticasone propionate 50 mcg/actuation (Flonase Allergy Relief) 1 spray intranasal BID 30 days furosemide 40 mg PO DAILY 90 days gabapentin 300 mg (3 x 100 mg) PO Q12H 30 days lidocaine 5% (Lidoderm) 1 patch topical DAILY PRN MDD remove after 12 hours lidocaine 5% (Lidoderm) 1 patch topical DAILY losartan 50 mg PO DAILY 30 days metformin 750 mg (1.5 x 500 mg) PO DAILY 90 days metoprolol succinate ER 12.5 mg (1/2 x 25 mg) PO DAILY multivitamin 1 tab PO DAILY paroxetine HCl 40 mg PO DAILY 90 days HPI HPI Comments History of Present Illness Details 72-year-old female here for follow-up. She has background of bypass surgery. She also had PE in the past and has factor 5 Leiden. She has been on Eliquis 2.5 mg twice a day. She also had a pericardial effusion after surgery which was drained. She has small effusion based on echocardiography in August. She was complaining of hot flashes. She said she went into menopause in her late 40s to early 50s. She notes she gets significant flushing and hot feeling. This is not associated with any diarrhea. She had chest discomfort or shortness of breath. She was seen by endocrinology. 05/13/22: she returns for follow-up. She has been taking Eliquis once a day. She also is complaining of a lot of palpitations. Previously she had cardiac event monitor in July of 2021 which did not show any atrial fibrillation. She is saying she is getting episodes of palpitations up to 3 times a week. She also gets sweating when she gets the palpitations. She previously had SVT which was few years ago. She was referred for 14 day Holter monitor. She was also advised to increase the apixaban to 2.5 mg twice a day. 09/09/22: She returns for follow-up. She had Holter monitor done on 05/18/2022. Her underlying rhythm was sinus with average heart rate 66 beats per minute, rare premature atrial complexes and PVCs. For total SVT events longest lasting 8 beats and the fastest 133 beats per minute. Patient's symptoms correlated more with isolated premature ventricular complexes. She has stopped taking rosuvastatin because of muscle cramps. She is denying any palpitations on follow-up. She has no other symptoms. No bleeding concerns. Blood pressure control is good. 09/19/2022: She returns for follow-up. She is saying that she has been more depressed recently. Mostly because of inability to tolerate exercise due to knee arthritis. She is saying her antidepressants for increased recently. She is saying that she had sleep apnea but has not be using the mask and has not followed up with anyone. She thinks symptoms are mostly due to depression currently. She is getting fatigue and more sleepiness during the daytime. 06/07/23: She returns for follow-up. He is saying that her mood is better after antidepressant dose was not increased. She is trying to walk with her new dog. She got gel shots in both knees and left knee has improved with the right knee still has significant pain. Denying any cardiac chest discomfort or shortness of breath. Overall clinically stable. [facility] Medical History Flushing Factor 5 Leiden mutation, heterozygous CAD (coronary artery disease) PSVT (paroxysmal supraventricular tachycardia) Hyperlipidemia Diabetes type 2, controlled Essential hypertension Uterine cancer Hypertension Surgical History History of surgery History of open heart surgery History of hysterectomy Family History Sister Lung cancer Stroke Father Heart attack Mother Heart attack Son Diabetes Brother Parkinsons Lung cancer Brother Diverticulitis Other Mental health disorder Substance abuse Social History Household Members: None Household Members Other:: , 1 son cardiac@ 48 Housing: House Alcohol intake: current Alcohol intake frequency: holidays/special occasions only Alcohol type: wine Patient Tobacco Use Status: Former Tobacco user Quit Date: age 22 Years Smoked: 6 +/- e-Cigarette/Vaping Use: Never Used Second Hand Smoke Exposure: No service: No Current occupational status: retired 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 Current occupational exposures/hazards: No Cognitive needs: No Hearing needs: No Vision needs: No Review of Systems Const Denies chills, Denies fatigue, Denies fever(s), Denies frequent falls, Denies weakness, Denies weight gain and Denies weight loss ENT Denies dizziness Card Denies chest pain, Denies leg edema, Denies lightheadedness, Denies palpitations, Denies dyspnea and Denies dyspnea on exertion Resp Denies cough, Denies dyspnea and Denies dyspnea on exertion GI Denies hematochezia Musc Denies abnormal gait, Denies muscle weakness, Denies numbness, Denies radiating pain into limb and Denies tingling Neuro Denies abnormal gait, Denies dizziness, Denies frequent falls, Denies numbness, Denies tingling and Denies weakness Endo Denies fatigue and Denies palpitations Physical Exam Vital Signs: Last Vital Signs Pulse 64 06/07/23 09:39 BP 140/72 H 06/07/23 09:39 BMI result Body Mass Index 37.7 GENERAL APPEARANCE: in no acute distress, pleasant. NECK/THYROID: no carotid bruit, no jugular venous distention. SKIN: Midline sternotomy scar. HEART: no murmurs, regular rate and rhythm. LUNGS: clear to auscultation bilaterally. ABDOMEN: soft, nontender. EXTREMITIES: no edema. PERIPHERAL PULSES: equal. NEUROLOGIC: No gross deficits, AAO X 3 Assessment & Plan Assessment & Plan (1) Stable angina: Code(s): I20.8 - Other forms of angina pectoris (2) S/P CABG x 3: Code(s): Z95.1 - Presence of aortocoronary bypass graft (3) Factor 5 Leiden mutation, heterozygous: Comment: Screening colonoscopy Code(s): D68.51 - Activated protein C resistance (4) Essential hypertension: Code(s): I10 - Essential (primary) hypertension Plan 72 year female presenting for follow-up. She has background history of coronary artery bypass surgery. She has stable angina currently. She is on low-dose apixaban for factor 5 Leiden. She is on baby aspirin. Blood pressure is mildly elevated. This can be monitored and her losartan can be increased to 100 mg if on follow-up her blood pressure is still elevated. She is feeling little better with increased in antidepressants. She also got a dog and is walking but still quite limited due to right knee pain. She may consider surgery. I have told her about genicular artery embolization as a potential alternative to surgery for pain control at least. She will think about it. She will see us back in few months. Thank you for allowing me to participate in the care of your patient. Please feel free to contact me if you have any questions. Coding Level of Care Code Est Pt Level 4 (20049) Diagnoses Stable angina I20.8 S/P CABG x 3 Z95.1 Factor 5 Leiden mutation, heterozygous D68.51 Essential hypertension I10
== END 2023-06-07 10:06 | disposition home or self-care (01) ==
PROVIDERS: PCP Family Medicine; Visit Provider Internal Medicine Cardiovascular Disease
DX: I20.89 Other forms of angina pectoris (principal); Z95.1 Presence of aortocoronary bypass graft; D68.51 Activated protein C resistance; I10 Essential (primary) hypertension
CPT/HCPCS: 99214

== ENCOUNTER → 2023-06-07 09:20 | Outpatient (BNVA) | payer MEDICARE, SELFPAY | PROVIDERS: PCP Family Medicine; Visit Provider Internal Medicine Cardiovascular Disease | DX: I20.89 Other forms of angina pectoris (principal); D68.51 Activated protein C resistance; Z95.1 Presence of aortocoronary bypass graft; I10 Essential (primary) hypertension | CPT/HCPCS: 99212 ==

== ENCOUNTER 2023-09-28 09:57 | Emergency (ER) | payer MEDICARE, SELFPAY ==
--- NOTE | ~2023-09-28 | XR_ITS ---
EXAMINATION: XR RIBS, RIGHT CLINICAL INFORMATION: Pain after falling COMPARISON: None available. TECHNIQUE: 3 views of the right ribs were obtained. FINDINGS: The ribs are intact. Right shoulder intact. No fracture or destructive process. Sternal wires and mediastinal clips are present. XR/XR ribs RT min 3V w CXR1V IMPRESSION: No fracture.
[2023-09-28 10:10] VITALS: BP 163/66; PULSE 61; RESP 18; TEMP 35.5; O2SAT 94; BMI 35.8
--- NOTE | 2023-09-28 11:08 | ED_ITS ---
HPI - Fall General Chief Complaint: Fall Stated Complaint: Rib injury Time Seen by Provider: 09/28/23 11:02 Source: patient, RN notes reviewed and old records reviewed Mode of arrival: ambulatory Limitations: no limitations History of Present Illness ED Provider: JEREMY SORENSON PA-C HPI Narrative: 72 year old female with pmhx significant for T2DM, HDL, CAD s/p triple bypass (2020), NSTEMI, PSVT, HTN, uterine cancer s/p hysterectomy, factor 5 leiden mutation (on eliquis), and pulmonary embolism presents to the ED for evaluation of right rib pain s/p mechanical fall 2 weeks ago. She reports that she was out walking her dog when she stepped into a pot hole causing her to fall to the ground, landing on her right side. Denies head strike or LOC. She is anticoagulated on eliquis and takes aspirin daily. Since this time endorses right lateral/ posterior rib pain worse with movement and deep breathing. She has been applying ice at home with temporarily helps the pain. No OTC pain medi cations. Denies chest pain, palpitations, sob, dyspnea. Denies bruising. Related Data Home Medications ?Medication ?Instructions ?Recorded ?Confirmed multivitamin 1 tab PO DAILY 07/24/20 06/07/23 baclofen 10 mg tablet 10 mg PO DAILY 03/19/23 06/07/23 Previous Rx's ?Medication ?Instructions ?Recorded aspirin 81 mg tablet,delayed 81 mg PO DAILY #1 tab 11/27/20 release (Adult Aspirin Regimen) acetaminophen 500 mg tablet 500 mg PO Q6H PRN fever or pain 03/10/22 (Tylenol Extra Strength) #14 tabs lidocaine 5 % topical patch 1 patch topical DAILY PRN pain #30 03/10/22 (Lidoderm) ea losartan 50 mg tablet 50 mg PO DAILY 30 days #30 tabs 12/09/22 colchicine 0.6 mg tablet 0.6 mg PO DAILY #30 tabs 01/11/23 fluticasone propionate 50 1 spray intranasal BID 30 days #16 01/11/23 mcg/actuation nasal grams spray,suspension (Flonase Allergy Relief) metformin 500 mg tablet 750 mg (1.5 x 500 mg) PO DAILY 90 01/26/23 days #135 tabs furosemide 40 mg tablet 40 mg PO DAILY 90 days #90 tabs 02/10/23 baclofen 5 mg tablet 5 mg PO BEDTIME PRN muscle spasm 03/19/23 #5 tabs lidocaine 5 % topical patch 1 patch topical DAILY #15 ea 03/19/23 (Lidoderm) metoprolol succinate 25 mg 12.5 mg (1/2 x 25 mg) PO DAILY #45 04/29/23 tablet,extended release 24 hr tabs apixaban 2.5 mg tablet (Eliquis) 2.5 mg PO BID 90 days #180 tabs 07/01/23 ezetimibe 10 mg tablet 10 mg PO DAILY #30 tabs 08/06/23 paroxetine HCl 40 mg tablet 40 mg PO DAILY 90 days #90 tabs 08/16/23 gabapentin 100 mg capsule 300 mg (3 x 100 mg) PO Q12H 30 08/18/23 days #180 caps evolocumab 140 mg/mL subcutaneous 140 mg subcut Q2W #2 mL 09/06/23 pen injector (Dave Wild) acetaminophen 325 mg tablet 650 mg (2 x 325 mg) PO Q6H PRN 09/28/23 (Tylenol) pain (scale score 1-3) #30 tabs lidocaine 5 % topical patch 1 patch topical DAILY #15 ea 09/28/23 (Lidoderm) Allergies Allergy/AdvReac Type Severity Reaction Status Date / Time rosuvastatin Allergy Severe Muscle Verified 09/28/23 10:14 cramps [id number] Reductase Allergy Severe Muscle Verified 09/28/23 10:14 Inhibitor cramps oxycodone [OXYCODONE] Allergy Mild NAUSEA & Verified 09/28/23 10:14 VOMITING, auditory hallucination, hallucinations atorvastatin AdvReac Severe muscle Verified 09/28/23 10:14 aches/Terrible leg pain bupropion [From WELLBUTRIN] AdvReac Mild NAUSEA & Verified 09/28/23 10:14 VOMITING Review of Systems Review of Systems: Constitutional: No fever, chills, fatigue, night sweats, weight changes ENT/Mouth: No ear pain, hearing loss, nasal congestion, sinus pain, rhinorrhea, sore throat Eyes: No eye pain, swelling, redness, vision changes, discharge Cardio: No chest pain, palpitations, HIGH, orthopnea, peripheral edema Pulm: No SOB, cough, sputum, wheezing, dyspnea, hemoptysis GI: No nausea, vomiting, hematemesis, abdominal pain, diarrhea, constipation, hematochezia, melena : No irregular bleeding, dysuria, frequency, urgency, hesitancy, hematuria, flank pain, urinary flow changes, urinary incontinence or retention MSK: No back pain, neck pain, joint pain, myalgias, +right rib pain Skin: No lesions, rashes Neuro: No weakness, numbness, paresthesias, LOC, dizziness, headache Psych: No anxiety/panic, depression, SI/HI, AH/VH All other systems reviewed and are negative. [facility] Past Medical History Attestation statement: The following information was validated with the patient. Source: old records reviewed and nursing notes reviewed Medical History Flushing Factor 5 Leiden mutation, heterozygous CAD (coronary artery disease) PSVT (paroxysmal supraventricular tachycardia) Hyperlipidemia Diabetes type 2, controlled Essential hypertension Uterine cancer Hypertension Surgical History History of surgery History of open heart surgery History of hysterectomy Family History Family History Sister Lung cancer Stroke Father Heart attack Mother Heart attack Son Diabetes Brother Parkinsons Lung cancer Brother Diverticulitis Other Mental health disorder Substance abuse Social History Social History Household Members: None Household Members Other:: , 1 son cardiac@ 48 Housing: House Alcohol intake: current Alcohol intake frequency: holidays/special occasions only Alcohol type: wine Patient Tobacco Use Status: Former Tobacco user Years Smoked: 6 +/- e-Cigarette/Vaping Use: Never Used Second Hand Smoke Exposure: No Advance Directives: No Advance Directives Information Provided: Yes Do you have a plan to hurt others: No Plan service: No Current occupational status: retired 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 Current occupational exposures/hazards: No Cognitive needs: No Hearing needs: No Vision needs: No Physical Exam Vital Signs: Vital Signs: Last Vital Signs Temp 96 F L 09/28/23 11:39 Pulse 61 09/28/23 11:39 Resp 18 09/28/23 11:39 BP 163/66 H 09/28/23 11:39 Pulse Ox 94 09/28/23 11:39 O2 Del Method Room Air 09/28/23 11:39 BMI result Body Mass Index 35.8 patient hypertensive, vitals otherwise wnl Const: General: cooperative, healthy appearing, comfortable and no acute distress Orientation/consciousness: patient oriented x3 Limitations: no limitations HEENT: Head: Yes normal to inspection, Yes No palpable skull fracture present, Yes normocephalic and Yes atraumatic Eyes: General: appearance normal, both eyes and all related structures Chest: Other: no ecchymosis, deformity or overlying skin changes noted to anterior/lateral/posterior chest santana. right lateral and posterior chest wall ttp without palpable deformity or crepitus Resp: Effort & Inspection: normal respiratory effort and able to speak in complete sentences Auscultation: clear to auscultation bilaterally Cardio: Rate: regular rate Rhythm: regular rhythm GI: Inspection: Yes normal to inspection and No abdominal wall ecchymosis Palpation (GI): Soft to palpation and nontender Back/Spine/Pelvis: Other: No midline spinous tenderness or step off deformity. No paraspinal muscle tenderness. Skin: General skin exam: no rashes or lesions noted Neuro: Other: Strength 5/5 intact throughout.?No saddle anesthesia.?Sensation intact to light touch.?Neurovascular intact distally.? General: patient oriented x3 and gait normal Course Course Course Narrative: 1125-- X-ray right ribs with chest x-ray does not reveal acute fracture or pneumothorax. Patient treated with Toradol in ED today. Likely rib contusion. Will send home with Tylenol and lidocaine patches. Patient agreeable with this. Patient has remained stable throughout ED visit today. Discussed worrisome signs and symptoms and when to return to the ED. All questions answered at this time. Patient is agreeable with disposition and stable for discharge. Medications Administered Discontinued Medications Generic Name Dose Route Start Last Admin Trade Name Freq PRN Reason Stop Dose Admin Ketorolac Tromethamine 30 mg 09/28/23 11:12 09/28/23 11:34 Ketorolac Tromethamine 30 Mg/Ml Vial IM 09/28/23 11:13 30 mg ONCE ONE Administration Medical Decision Making Medical Decision Making MDM Narrative: 72 year old female with pmhx significant for T2DM, HDL, CAD s/p triple bypass (2020), NSTEMI, PSVT, HTN, uterine cancer s/p hysterectomy, factor 5 leiden mutation (on eliquis), and pulmonary embolism presents to the ED for evaluation of right rib pain s/p mechanical fall 2 weeks ago. Vital signs stable. Not hypoxic. She is nontoxic appearing in no acute distress. On exam, no ecchymosis, deformity or overlying skin changes noted to anterior/lateral/posterior chest santana. right lateral and posterior chest wall ttp without palpable deformity or crepitus. RRR. Lungs are CTA b/l. symmetric rise and fall of chest. Differential diagnosis includes contusion, rib fracture. Lower suspicion for flail chest, pneumothorax, intrathoracic bleed. unlikely PE. Plan for xrays, pain control, and re-evaluation. Differential Diagnosis Differential Diagnoses: The differential diagnosis associated with the pres entation includes as above. Admission/Observation Not indicated. Independent Interpretation I performed an independent interpretation of an: Plain X-Ray Interpretation: XR without fracture, agree with radiologist's interpretation. Radiology Impression Discussion of test interpretation with radiology: I have reviewed the radiologist's reading. Radiologist Impression: EXAMINATION: XR RIBS, RIGHT CLINICAL INFORMATION: Pain after falling COMPARISON: None available. TECHNIQUE: 3 views of the right ribs were obtained. FINDINGS: The ribs are intact. Right shoulder intact. No fracture or destructive process. Sternal wires and mediastinal clips are present. XR/XR ribs RT min 3V w CXR1V IMPRESSION: No fracture. External Record Review External record reviewed: Inpatient record, Office record, Outpatient record, Prior outpatient labs, Prior outpatient radiology, Primary care record and Outside ED record Prescription Management I considered prescription management with: Pain Medication Social Determinants Patient?s care significantly limited by Social Determinants of Health including: Other Social Determinant of Health Critical Care Time Critical Care Time Critical Care Time: No Discharge Plan Discharge Clinical Impression: Rib contusion Qualifiers: Encounter type: initial encounter Laterality: right Qualified Code(s): S20.211A - Contusion of right front wall of thorax, initial encounter Patient Disposition: Home, Self-Care Instructions: Rib Contusion (ED) Additional Instructions: Your xrays do not demonstrate fracture. Use ice several times per day for 20 minutes at a time for the next 48 hours and then change to heat. Lidoderm patches are numbing patches. Apply to painful areas. In addition you may take Tylenol at home. Follow up with your primary care provider as needed If your pain worsens, if you develop new numbness, tingling, weakness, loss of bowel or bladder function call 911 or return to the ER immediately for evaluation. Prescriptions: New lidocaine [Lidoderm] 5 % adhesive patch,medicated 1 patch topical DAILY Qty: 15 0RF Rx Instructions: leave on most painful area for up to 12 hrs acetaminophen [Tylenol] 325 mg tablet 650 mg PO Q6H PRN (Reason: pain (scale score 1-3)) Qty: 30 0RF No Action losartan 50 mg tablet 50 mg PO DAILY 30 Days Qty: 30 1RF colchicine 0.6 mg tablet 0.6 mg PO DAILY Qty: 30 3RF fluticasone propionate [Flonase Allergy Relief] 50 mcg/actuation spray,suspension 1 spray intranasal BID 30 Days Qty: 16 3RF Rx Instructions: administer into each nostril metformin 500 mg tablet 750 mg PO DAILY 90 Days Qty: 135 3RF furosemide 40 mg tablet 40 mg PO DAILY 90 Days Qty: 90 3RF metoprolol succinate 25 mg tablet extended release 24 hr 12.5 mg PO DAILY Qty: 45 3RF Eliquis 2.5 mg tablet 2.5 mg PO BID 90 Days Qty: 180 2RF ezetimibe 10 mg tablet 10 mg PO DAILY Qty: 30 4RF paroxetine HCl 40 mg tablet 40 mg PO DAILY 90 Days Qty: 90 2RF gabapentin 100 mg capsule 300 mg PO Q12H 30 Days Qty: 180 2RF Repatha SureClick 140 mg/mL pen injector 140 mg subcut Q2W Qty: 2 4RF multivitamin Tablet 1 tab PO DAILY acetaminophen [Tylenol Extra Strength] 500 mg tablet 500 mg PO Q6H PRN (Reason: fever or pain) Qty: 14 0RF lidocaine [Lidoderm] 5 % adhesive patch,medicated 1 patch topical DAILY MDD remove after 12 hours PRN (Reason: pain) Qty: 30 0RF Rx Instructions: leave on most painful area for up to 12 hrs baclofen 5 mg tablet 5 mg PO BEDTIME PRN (Reason: muscle spasm) Qty: 5 0RF lidocaine [Lidoderm] 5 % adhesive patch,medicated 1 patch topical DAILY Qty: 15 0RF Rx Instructions: leave on most painful area for up to 12 hrs baclofen 10 mg tablet 10 mg PO DAILY aspirin [Adult Aspirin Regimen] 81 mg tablet,delayed release (DR/EC) 81 mg PO DAILY Qty: 1 0RF Interventions: ED Discharge Assessment Last Done: 09/28/23 11:39 Discharge Date/Time: 09/28/23 11:40 Print Language: Turkish
[2023-09-28] MEDS: Ketorolac Tromethamine 30 MG/ML VIAL IM (11:34)
[2023-09-28 11:39] VITALS: BP 163/66; PULSE 61; RESP 18; TEMP 35.5; O2SAT 94
== END 2023-09-28 11:40 | disposition home or self-care (01) ==
PROVIDERS: Emergency Provider Emergency Medicine Emergency Medical Services; PCP Family Medicine
DX: S20.211A Contusion of right front wall of thorax, initial encounter (principal); W17.2XXA Fall into hole, initial encounter; Y93.K1 Activity, walking an animal; Y92.414 Local residential or business street as the place of occurrence of the external cause; Y99.9 Unspecified external cause status
CPT/HCPCS: 71101; 96372; 99283; 99284; J1885

== ENCOUNTER 2023-10-13 09:02 | Outpatient (AMB) | payer MEDICARE, SELFPAY ==
[2023-10-13 09:12] VITALS: BP 140/72; PULSE 65; BMI 35.9
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
== END 2023-10-13 09:40 | disposition home or self-care (01) ==
PROVIDERS: PCP Family Medicine; Visit Provider Internal Medicine Cardiovascular Disease
DX: I20.89 Other forms of angina pectoris (principal); I10 Essential (primary) hypertension
CPT/HCPCS: 93010; 99213

== ENCOUNTER → 2023-10-13 09:02 | Outpatient (BNVA) | payer MEDICARE, SELFPAY | PROVIDERS: PCP Family Medicine; Visit Provider Internal Medicine Cardiovascular Disease | DX: I20.89 Other forms of angina pectoris (principal); I10 Essential (primary) hypertension | CPT/HCPCS: 93005; 99212 ==

== ENCOUNTER 2023-10-15 08:13 | Outpatient (REF) | payer MEDICARE, SELFPAY ==
[2023-10-15 11:04] LABS: Appearance Urine Clear; Color Urine Yellow; Glucose Urine UA Negative (Negative); Leukocyte Esterase Urine Moderate (2+) (Negative); Nitrite Urine Negative (Negative); PH 8.5 (5.0-9.0); UMIC TRIGGER UA YES; Urine Blood Negative (Negative); Urine Ketones Negative (Negative); Urine Protein 30 (1+) mg/dL (Neg-Trace)
[2023-10-15 11:21] LABS: Bacteria Urine None Seen (None Seen); Hyaline Casts Urine 0-2 /LPF (0-2); RBC Urine 0-2 /HPF (0-2); Squamous Epithelial Cell Urine 0-2 /HPF (0-2); WBC Urine 0-5 /HPF (0-5)
[2023-10-15 11:41] LABS: Alanine Aminotransferase 25 U/L (0-31); Albumin Level 3.7 g/dL (3.5-5.0); Alkaline Phosphatase 95 U/L (39-117); Anion Gap 9 (12-20); Aspartate Amino Transferase 22 U/L (5-31); Bilirubin Total 0.4 mg/dL (0.0-1.0); Blood Urea Nitrogen 11 mg/dL (9-16); Calcium 9.2 mg/dL (8.4-10.2); Carbon Dioxide 32 mmol/L (22-29); Chloride 106 mmol/L (96-108); Cholesterol 131 mg/dL (<200); Estimated Glomerular Filt Rate > 60; Glucose Fasting 102 mg/dL (60-99); HDL Cholesterol 50 mg/dL (>40); LDL Cholesterol Calculated 62 mg/dL (<100); Potassium 4.3 mmol/L (3.3-5.1); Sodium 143 mmol/L (135-145); Total Protein 6.8 g/dL (6.5-8.0); Triglycerides 98 mg/dL (<150)
== END 2023-10-15 08:14 | disposition home or self-care (01) ==
LOC: HO.WFDLDS 08:13
PROVIDERS: Visit Provider Family Medicine
DX: Z00.00 Encounter for general adult medical examination without abnormal findings (principal); I25.10 Atherosclerotic heart disease of native coronary artery without angina pectoris
CPT/HCPCS: 36415; 80053; 80061; 81001; 81003

== ENCOUNTER 2023-10-19 16:18 | Outpatient (AMB) | payer MEDICARE, SELFPAY ==
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
[2023-10-19 16:31] VITALS: BP 130/70; PULSE 72; RESP 12; TEMP 36.7; O2SAT 93; BMI 36.1
== END 2023-10-19 16:50 | disposition home or self-care (01) ==
PROVIDERS: PCP Family Medicine; Visit Provider Family Medicine
DX: E78.5 Hyperlipidemia, unspecified (principal); I25.10 Atherosclerotic heart disease of native coronary artery without angina pectoris; I10 Essential (primary) hypertension; Z91.81 History of falling; F43.20 Adjustment disorder, unspecified
CPT/HCPCS: 99214

== ENCOUNTER 2023-12-03 14:25 | Outpatient (AMB) | payer MEDICARE, SELFPAY ==
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
[2023-12-03 14:35] VITALS: BP 120/60; PULSE 68; RESP 16; TEMP 36.6; O2SAT 94; BMI 36.6
== END 2023-12-03 14:50 | disposition home or self-care (01) ==
PROVIDERS: PCP Family Medicine; Visit Provider Family Medicine
DX: F43.20 Adjustment disorder, unspecified (principal)

== ENCOUNTER → 2023-12-03 14:25 | Outpatient (BNVA) | payer MEDICARE, SELFPAY | PROVIDERS: PCP Family Medicine; Visit Provider Family Medicine | DX: F43.20 Adjustment disorder, unspecified (principal); Z95.1 Presence of aortocoronary bypass graft | CPT/HCPCS: 99212 ==

== ENCOUNTER 2024-02-23 10:37 | Outpatient (AMB) | payer MEDICARE, SELFPAY ==
[2024-02-23 10:44] VITALS: BP 130/80; PULSE 70; BMI 37.9
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
== END 2024-02-23 11:03 | disposition home or self-care (01) ==
PROVIDERS: PCP Family Medicine; Visit Provider Internal Medicine Cardiovascular Disease
DX: I20.89 Other forms of angina pectoris (principal); I10 Essential (primary) hypertension
CPT/HCPCS: 99214

== ENCOUNTER → 2024-02-23 10:37 | Outpatient (BNVA) | payer MEDICARE, SELFPAY | PROVIDERS: PCP Family Medicine; Visit Provider Internal Medicine Cardiovascular Disease | DX: I20.89 Other forms of angina pectoris (principal); I10 Essential (primary) hypertension | CPT/HCPCS: 99212 ==

== ENCOUNTER 2024-05-17 08:17 | Outpatient (AMB) | payer MEDICARE, SELFPAY ==
--- NOTE | 2024-05-17 08:33 | A.OFFPC_ITS ---
Vital Signs 05/17/24 08:36 Height 5 ft 2 in Weight 209 lb 4 oz BMI 38.3 BP 130/60 Blood Pressure Location Lt brachial Position Sitting Respiration 14 Pulse 63 Pulse Source Pulse Oximeter Temp 97.9 F Temp Source Oral Pulse Oximetry (%) 97 Oxygen Delivery Method Room Air Intake Visit Reasons: f/u hypertension Intake Note: follow up htn Thread Twister Required: No Allergies rosuvastatin Allergy (Severe, Verified 05/17/24 08:34) Muscle cramps [id number] Reductase Inhibitor Allergy (Severe, Verified 05/17/24 08:34) Muscle cramps oxycodone [OXYCODONE] Allergy (Mild, Verified 05/17/24 08:34) NAUSEA & VOMITING, auditory hallucination, hallucinations atorvastatin Adverse Reaction (Severe, Verified 05/17/24 08:34) muscle aches/Terrible leg pain bupropion [From WELLBUTRIN] Adverse Reaction (Mild, Verified 05/17/24 08:34) NAUSEA & VOMITING Medication List - Last Reconciled 05/17/24 by Obdulio Sabillon MD acetaminophen (Tylenol Extra Strength) 500 mg PO Q6H PRN acetaminophen (Tylenol) 650 mg (2 x 325 mg) PO Q6H PRN apixaban (Eliquis) 2.5 mg PO BID 90 days ascorbate calcium (vitamin C) 500 mg PO DAILY colchicine 0.6 mg PO DAILY evolocumab (Repatha SureClick) 140 mg subcut Q2W fluticasone propionate 50 mcg/actuation (Flonase Allergy Relief) 1 spray intranasal BID 30 days furosemide 40 mg PO DAILY 90 days gabapentin 300 mg (3 x 100 mg) PO Q12H 30 days lidocaine 5% (Lidoderm) 1 patch topical DAILY PRN MDD remove after 12 hours lidocaine 5% (Lidoderm) 1 patch topical DAILY lidocaine 5% (Lidoderm) 1 patch topical DAILY losartan 50 mg PO BID 30 days metformin 750 mg (1.5 x 500 mg) PO DAILY 90 days metoprolol succinate ER 12.5 mg (1/2 x 25 mg) PO ONCE multivitamin 1 tab PO DAILY paroxetine HCl 40 mg PO DAILY 90 days Tobacco use date assessed: 04/02/23 Dental Screening Dental Screen Date: 03/19/23 HPI f/u hypertension HPI Details Patient?presents?to?follow-up?diabetes?and?hypertension. Patient?is?taking?metoprolol?and?losartan?prescribed No?problems?medications He?is?taking?metformin?for?blood?sugar Has?started?walking?in History?of?depression Patient?says?she?gotten?therapist?this?is?helping Saw?cardiology?recently.??They?feel?she?is?currently?stable. She?is?on?aspirin?on?Eliquis?2.5?mg?twice?a?day [facility] Medical History Flushing Factor 5 Leiden mutation, heterozygous CAD (coronary artery disease) PSVT (paroxysmal supraventricular tachycardia) Hyperlipidemia Diabetes type 2, controlled Essential hypertension Uterine cancer Hypertension Surgical History History of surgery History of open heart surgery History of hysterectomy Family History Sister Lung cancer Stroke Father Heart attack Mother Heart attack Son Diabetes Brother Parkinsons Lung cancer Brother Diverticulitis Other Mental health disorder Substance abuse Social History Household Members: None Household Members Other:: , 1 son cardiac@ 48 Housing: House Alcohol intake: current Alcohol intake frequency: holidays/special occasions only Alcohol type: wine Patient Tobacco Use Status: Former Tobacco user Years Smoked: 6 +/- e-Cigarette/Vaping Use: Never Used Second Hand Smoke Exposure: No service: No Current occupational status: retired 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 1. Little interest or pleasure in doing things: several days 2. Feeling down, depressed, or hopeless: several days 3. Trouble falling or staying asleep, or sleeping too much: several days 4. Feeling tired or having little energy: several days 5. Poor appetite or overeating: several days 6. Feeling bad about yourself - or that you are a failure or have let yourself or your family down: not at all 7. Trouble concentrating on things, such as reading the newspaper or watching television: not at all 8. Moving or speaking so slowly that other people could have noticed. Or the opposite - being so fidgety or restless that you have been moving around a lot more than usual: not at all 9. Thoughts that you would be better off or of hurting yourself in some way: not at all Total score: 5 Depression Screening Interpretation: Negative Depression Screening Done: Yes Source: Developed by Drs. Justice Panda, Ruthie Chavira, Rm Sexton and colleagues, with an educational jim from [employer]. Thrive Questionnaire Date Thrive assessed: 05/10/24 I am a: Patient What is your living situation today?: I have a steady place to live Within the past 12 months, did the food you bought not last and you didn't have the money to get more?: Never true Within the past 12 months, did you worry whether your food would run out before you got money to buy more?: Never true Do you have trouble paying for medicines?: No Do you have trouble getting transportation to medical appointments?: No Do you have trouble paying your heating and electricity bill?: No Do you have trouble taking care of your child, family member or friend?: No Do you have trouble with day-to-day activities such as bathing, preparing meals, shopping, managing finances, etc.?: No Are you currently unemployed and looking for a job?: No Are you interested in more education?: I choose not to answer this question Please select the resources that you would like help with: None Currently or been in a relationship where the following occur: No concerns rep orted THRIVE Score: 0 AUDIT C Alcohol Use Questionnaire (AUDIT-C) 1. How often do you have a drink containing alcohol?: 2-4 times a month 2. How many drinks containing alcohol do you have on a typical day when you are drinking?: 1 or 2 3. How often do you have six or more drinks on one occasion?: Never Total Score: 2 EMMANUELLE-7 AMB Questionnaire EMMANUELLE-7 Date EMMANUELLE - 7 assessed: 03/19/23 Feeling nervous, anxious, or on edge: 1 = Several days Not being able to stop or control worryin = Not at all Worrying too much about different things: 0 = Not at all Trouble relaxin = Not at all Being so restless that it is hard to sit still: 0 = Not at all Becoming easily annoyed or irritable: 0 = Not at all Feeling afraid as if something awful might happen: 0 = Not at all Total EMMANUELLE-7 score (0-4 normal; 5-9 mild; 10-14 moderate; 15-21 severe): 1 Source: Developed by Drs. Justice Panda, Ruthie Chavira, Rm Sexton and colleagues, with an educational jim from [employer]. Review of Systems Const Denies chills, Denies fatigue, Denies fever(s), Denies headache(s) and Denies weakness ENT Denies dizziness and Denies headache(s) Card Denies chest pain, Denies lightheadedness, Denies dyspnea and Denies other (Palpitations) Resp Denies cough, Denies dyspnea, Denies wheezing and Denies other ( shortness of breath) Musc Denies numbness and Denies tingling Neuro Denies dizziness, Denies headache(s), Denies numbness, Denies tingling, Denies paresthesias and Denies weakness Psych Denies anxiety and Denies depression Endo Denies fatigue Aller/Immun Denies wheezing Physical exam (Primary Care) Vital Signs: Last Vital Signs Temp 97.9 F 05/17/24 08:36 Pulse 63 05/17/24 08:36 Resp 14 05/17/24 08:36 BP 130/60 05/17/24 08:36 Pulse Ox 97 05/17/24 08:36 Oxygen Delivery Method Room Air 05/17/24 08:36 BMI result Body Mass Index 38.3 Tobacco/Smoking Status: Tobacco use Status Tobacco use date assessed 04/02/23 05/17/24 08:34 Patient Tobacco Use Status Former Tobacco user 05/17/24 08:34 Tobacco use type 09/09/22 09:31 e-Cigarette/Vaping Use Never Used 05/17/24 08:34 PHQ-9: PHQ-9 Score PHQ-9: Total score 5 05/17/24 08:34 Depression Screening Interpretation: Negative Thrive Assessment: Date of Thrive Assessment Date Thrive assessed 05/10/24 05/17/24 08:34 Currently or been in a relationship where the following occur: No concerns reported Const General: no acute distress and well developed Nutritional Appearance: well nourished Orientation/consciousness: patient oriented x3 HENMT Head: Yes normocephalic and Yes atraumatic Eyes General: appearance normal, both eyes and all related structures Pupils: Equal, round and reactive pupils present EOM: EOMs intact bilaterally Resp Effort & Inspection: normal respiratory effort Auscultation: clear to auscultation bilaterally Cardio Rate: regular rate Rhythm: regular rhythm Heart sounds: S1 normal heart sound present, S2 normal heart sound present, no gallops, no murmurs and no rubs Neuro General: patient oriented x3 and gait normal Cranial nerves: Yes Equal, round and reactive pupils present Psych Affect: normal affect Coding Level of Care Code Est Pt Level 4 (79980) Diagnoses Essential hypertension I10 Diabetes type 2, controlled E11.9 CAD (coronary artery disease) I25.10 Factor 5 Leiden mutation, heterozygous D68.51 Depression with anxiety F41.8 Assessment & Plan Assessment & Plan (1) Essential hypertension: Code(s): I10 - Essential (primary) hypertension Category: Medical Plan: Blood?pressure?is?controlled.??Goal?is?less?than?130/80 Continue?current?medications (2) Diabetes type 2, controlled: Code(s): E11.9 - Type 2 diabetes mellitus without complications Category: Medical Plan: A1c?today: ?6.2%.??Good?control.??Goal?is?less?than?7.0% Continue?current?medication (3) CAD (coronary artery disease): Comment: Code(s): I25.10 - Atherosclerotic heart disease of [place] coronary artery without angina pectoris Category: Medical Plan: Stable?and?followed?by?cardiology (4) Factor 5 Leiden mutation, heterozygous: Comment: Screening colonoscopy Code(s): 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 Continue?current?medication (5) Depression with anxiety: Code(s): F41.8 - Other specified anxiety disorders Category: Medical Plan: Patient?now?has?a?therapist. Stable?and?doing?well. Continue?therapy Encouraged?exercise Orders: Orders Complete Blood Count Auto Diff Today Z00.00 - Encounter for general adult medical examination without abnormal findings Microalbumin, Random (w Creat) Today I10 - Essential (primary) hypertension Comprehensive Xenia. Panel Fast Today Z00.00 - Encounter for general adult medical examination without abnormal findings Lipid Panel Today Z00.00 - Encounter for general adult medical examination without abnormal findings UA and rflx microscopic Today Z00.00 - Encounter for general adult medical examination without abnormal findings TSH reflex Free T4 Today Z00.00 - Encounter for general adult medical examination without abnormal findings
[2024-05-17 08:36] VITALS: BP 130/60; PULSE 63; RESP 14; TEMP 36.6; O2SAT 97; BMI 38.3
--- OUTSIDE RECORDS SUMMARY | 2024-05-17 08:38 | XMS_ITS | Clinical Summary ---
Author Organization [employer] Address [address] [place] [address] [address] [place] [address] Care Team Providers Care Wedding Decorator Name Role Phone Unavailable Primary Care Provider Unavailabl e Allergies Active Allergy Reactions Criticality Noted Date Comments Bupropion 07/01/2022 Oxycodone 07/01/2022 Medications Eliquis 2.5 MG tablet Take 2.5 mg by mouth 2 times daily. Active Repatha SureClick 140 MG/ML injection inject 140 mg subcutaneously every 2 weeks 4 Active gabapentin (Neurontin) 100 MG capsule take 3 capsules orally every 12 hours for 30 days Active furosemide (Lasix) 40 MG tablet Take 40 mg by mouth Once per day. Active colchicine 0.6 MG tablet Take 0.6 mg by mouth Once per day. Active losartan (Cozaar) 50 MG tablet Take 50 mg by mouth Once per day. 3 Active metoprolol succinate XL (Toprol-XL) 25 MG 24 hr tablet take 1/2 tablet (12.5 mg) by mouth daily 4 Active PARoxetine (Paxil) 40 MG tablet Take 40 mg by mouth Once per day. 4 Active Social History Tobacco Use Types Packs/Day Years Used Date Smoking Tobacco: Never Smokeless Tobacco: Never Tobacco Cessation:Counseling Given: Not Answered Comments Unknown Sex and Gender Information Value Date Recorded Sex Assigned at Female 01/05/2022 10:30 AM EDT Legal Sex Female 10:30 AM EDT Gender Identity Female 01/05/2022 10:30 AM EDT Sexual Orientation Straight 01/05/2022 10 :30 AM EDT Last Filed Vital Signs Vital Sign Reading Time Taken Comments Blood Pressure 123/65 01/06/2024 9:51 AM EDT Pulse 65 01/06/2024 9:51 AM EDT Temperature - - Respiratory Rate - - Oxygen Saturation - - Inhaled Oxygen Concentration - - Weight - - Height - - Body Mass Index - - Plan of Treatment Upcoming Encounters Date Type Department Care Team (Late st Contact Info) Description 07/13/2024 9:00 AM EDT Office Visit [facility] [address] [place], [place] [phone] Alma Delia Garcia [address] [place], [place] [phone] Health Maintenance Due Date Last Done Comments CT Colonography 1950 Colonoscopy 1950 Colorectal Cancer Screening 1950 Depression Screening 1950 FIT DNA/Cologuard 1950 FIT 1950 FOBT 1950 Lipid Panel 1950 SDOH Screening 1950 Sigmoidoscopy 1950 Alcohol/Substance Use Screening 1962 Hepatitis C Screening 1968 Mammogram 1990 Zoster Vaccines (1 of 2) 2000 Dental X-Ray: Full Mouth 12/12/2018 12/12/2015 DTaP/Tdap/Td Vaccines (1 - Tdap) 05/10/2019 05/09/2019 Pneumococcal Vaccine: 50+ Years (2 of 2 - PCV) 11/03/2019 11/02/2018, 11/09/2017 COVID-19 Vaccine ( season) 2023 01/14/2023, 11/21/2021, 01/13/2021, Additional history exists Influenza Vaccine (#1) 2023 3, 11/21/2021, 12/18/2020, Additional history exists Dental X-Ray: Bitewings 07/05/2024 07/05/19 24, 03/02/2018, 02/01/2017, Additional history exists Dental Oral Exam 07/06/2024 01/06/2024, 03/2018, 08/09/2017, Additional history exists Dental Prophylaxis 07/06/2024 01/06/2024, 0 07/05/2023, 09/05/2018, Additional history exists Tobacco Screening 01/05/2025 01/06/2024 RSV Patients and Patients Aged 60 years or older (1 - 1-dose 75+ series) 2025 HIB Vaccines Aged Out No longer eligi ble based on patient's age to complete this topic HPV Vaccines Aged Out No longer eligi ble based on patient's age to complete this topic Hepatitis A Vaccines Aged Out No long er eligible based on patient's age to complete this topic Hepatitis B Vaccines Aged Out No long er eligible based on patient's age to complete this topic IPV Vaccines Aged Out No longer eligi ble based on patient's age to complete this topic Meningococcal Vaccine Aged Out No steve liang eligible based on patient's age to complete this topic RSV under 20 months Aged Out No longe r eligible based on patient's age to complete this topic Rotavirus Vaccines Aged Out No longer eligible based on patient's age to complete this topic Procedures Procedure Name Priority Date/Time Associated Diagnosis Comments PROPHYLAXIS - ADULT Routine 01/06/2024 1 0:00 AM EDT PERIODIC ORAL EVALUATION - ESTABLISHED PATIENT Routine 01/06/2024 10:00 AM EDT BITEWINGS - 4 RADIOGRAPHIC IMAGES Routine 07/05/2023 11:00 AM EDT INTRAORAL - COMPLETE SERIES OF RADIOGRAPHIC IMAGES Routine 12/12/2015 12:00 AM EDT from Last 3 Months or Most Recently Relevant to Health [place] [address] D[facility]AL [facility]
--- OUTSIDE RECORDS SUMMARY | 2024-05-17 08:38 | XMS_ITS | Clinical Summary ---
Author Organization [facility] Address [address] [place] [id number] Care Team Providers Care Quality Project Manager Name Role Phone Unavailable Primary Care Provider Unavailabl e Social History Tobacco Use Types Packs/Day Years Used Date Smoking Tobacco: Never Assessed Comments Unknown Sex and Gender Information Value Date Recorded Sex Assigned at Not on file Legal Sex Female 4:06 PM EDT Gender Identity Not on file Sexual Orientation Not on file Plan of Treatment Health Maintenance Due Date Last Done Comments Breast Cancer Screening 1950 Colorectal Cancer Screening: Annual FOBT 12/05/1999 Colorectal Cancer Screening: Colonoscopy 12/05/1999 Colorectal Cancer Screening: Sigmoidoscopy 12/05/1999 Pneumococcal Vaccine: 65+ Ye ars (1 of 1 - PCV) 12/05/2015 Influenza Vaccine (#1) 2023 Hepatitis B Vaccine Aged Out No longe r eligible based on patient's age to complete this topic Insurance [facility]ICARE [facility]ARE [facility]
== END 2024-05-17 10:23 | disposition home or self-care (01) ==
LOC: HO.HMCFM 08:18
PROVIDERS: PCP Family Medicine; Visit Provider Family Medicine
DX: I10 Essential (primary) hypertension (principal); E11.9 Type 2 diabetes mellitus without complications; I25.10 Atherosclerotic heart disease of native coronary artery without angina pectoris; D68.51 Activated protein C resistance; F41.8 Other specified anxiety disorders

== ENCOUNTER → 2024-05-17 08:17 | Outpatient (BNVA) | payer MEDICARE, SELFPAY | PROVIDERS: PCP Family Medicine; Visit Provider Family Medicine | DX: I10 Essential (primary) hypertension (principal); E11.9 Type 2 diabetes mellitus without complications; I25.10 Atherosclerotic heart disease of native coronary artery without angina pectoris; F41.8 Other specified anxiety disorders; D68.51 Activated protein C resistance | CPT/HCPCS: 83036; 99212 ==

== ENCOUNTER 2024-06-01 13:25 | Outpatient (REF) | payer MEDICARE, SELFPAY ==
[2024-06-01 19:17] LABS: Influenza A PCR POSITIVE (Negative); Influenza B PCR NEGATIVE (Negative); Resp Syncy Virus RNA Qual PCR NEGATIVE (Negative); SARS COV2 PCR INHOUSE NEGATIVE (Negative)
== END 2024-06-01 13:26 | disposition home or self-care (01) ==
LOC: HO.LAB 13:25
PROVIDERS: PCP Family Medicine; Visit Provider Nurse Practitioner Family
DX: J06.9 Acute upper respiratory infection, unspecified (principal); I10 Essential (primary) hypertension
CPT/HCPCS: 0241U; 99212

== ENCOUNTER 2024-06-01 13:25 | Outpatient (AMB) | payer MEDICARE, SELFPAY ==
--- NOTE | 2024-06-01 13:30 | MHC.PC.OV ---
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 Required: No Is last menstrual period known: No Post menopausal: No Patient : No Allergies rosuvastatin Allergy (Severe, Verified 06/01/24 13:51) Muscle cramps Oupvikf-GRS-VmJ Reductase Inhibitor Allergy (Severe, Verified 06/01/24 13:51) Muscle cramps oxycodone [OXYCODONE] Allergy (Mild, Verified 06/01/24 13:51) NAUSEA & VOMITING, auditory hallucination, hallucinations atorvastatin Adverse Reaction (Severe, Verified 06/01/24 13:51) muscle aches/Terrible leg pain bupropion [From WELLBUTRIN] Adverse Reaction (Mild, Verified 06/01/24 13:51) NAUSEA & VOMITING Medication List - Last Reconciled 06/01/24 by Dl Kurtz CNP acetaminophen (Tylenol Extra Strength) 500 mg PO Q6H PRN acetaminophen (Tylenol) 650 mg (2 x 325 mg) PO Q6H PRN apixaban (Eliquis) 2.5 mg PO BID 90 days ascorbate calcium (vitamin C) 500 mg PO DAILY colchicine 0.6 mg PO DAILY evolocumab (Repatha SureClick) 140 mg subcut Q2W fluticasone propionate 50 mcg/actuation (Flonase Allergy Relief) 1 spray intranasal BID 30 days furosemide 40 mg PO DAILY 90 days gabapentin 300 mg (3 x 100 mg) PO Q12H 30 days lidocaine 5% (Lidoderm) 1 patch topical DAILY PRN MDD remove after 12 hours lidocaine 5% (Lidoderm) 1 patch topical DAILY lidocaine 5% (Lidoderm) 1 patch topical DAILY losartan 50 mg PO BID 30 days metformin 750 mg (1.5 x 500 mg) PO DAILY 90 days metoprolol succinate ER 12.5 mg (1/2 x 25 mg) PO ONCE multivitamin 1 tab PO DAILY paroxetine HCl 40 mg PO DAILY 90 days Tobacco use date assessed: 06/01/24 Fall risk assessment: 1 Fall in past year Last assessed Fall Risk: 06/01/24 Dental Screening Dental Screen Date: 06/01/24 Did you have a dental visit in the last 12 months?: Yes Did you have a dental problem in the last 6 months where you did not have access to dental care?: No Was dental information given to patient?: Patient has dentist HPI HPI Comments History of Present Illness Details 73-year-old female presents with complaints of generalized headache, nonproductive cough, and mild dizziness. Her symptoms started at 3am and have progressively worsened. She took 2 pills of Tylenol at 8am today. She has been drinking plenthy of water. She denies fever, chills, body aches, fatigue, or weakness. Her partner tested positive for the flu 5 days ago. [facility] Medical History Flushing Factor 5 Leiden mutation, heterozygous CAD (coronary artery disease) PSVT (paroxysmal supraventricular tachycardia) Hyperlipidemia Diabetes type 2, controlled Essential hypertension Uterine cancer Hypertension Surgical History History of surgery History of open heart surgery History of hysterectomy Family History Sister Lung cancer Stroke Father Heart attack Mother Heart attack Son Diabetes Brother Parkinsons Lung cancer Brother Diverticulitis Other Mental health disorder Substance abuse Social History Household Members: None Household Members Other:: , 1 son cardiac@ 48 Housing: House Alcohol intake: current Alcohol intake frequency: holidays/special occasions only Alcohol type: wine Patient Tobacco Use Status: Former Tobacco user Years Smoked: 6 +/- e-Cigarette/Vaping Use: Never Used Second Hand Smoke Exposure: No service: No Current occupational status: retired 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 Current occupational exposures/hazards: No Cognitive needs: No Hearing needs: No Vision needs: No Questionnaire Thrive Questionnaire Date Thrive assessed: 05/10/24 I am a: Patient What is your living situation today?: I have a steady place to live Within the past 12 months, did the food you bought not last and you didn't have the money to get more?: Never true Within the past 12 months, did you worry whether your food would run out before you got money to buy more?: Never true Do you have trouble paying for medicines?: No Do you have trouble getting transportation to medical appointments?: No Do you have trouble paying your heating and electricity bill?: No Do you have trouble taking care of your child, family member or friend?: No Do you have trouble with day-to-day activities such as bathing, preparing meals, shopping, managing finances, etc.?: No Are you currently unemployed and looking for a job?: No Are you interested in more education?: I choose not to answer this question Please select the resources that you would like help with: None Currently or been in a relationship where the following occur: No concerns reported THRIVE Score: 0 EMMANUELLE-7 AMB Questionnaire EMMANUELLE-7 Date EMMANUELLE - 7 assessed: 03/19/23 Source: Developed by Drs. Justice Panda, Ruthie Chavira, Rm Sexton and colleagues, with an educational jim from [employer]. Review of Systems Const Details: Const Denies chills, Denies fatigue, Denies fever(s), Reports headache(s) and Denies weakness ENT Reports dizziness and Denies headache(s) Card Denies chest pain, Denies lightheadedness, Denies dyspnea and Denies other (Palpitations) Resp Reports cough, Denies dyspnea, Denies wheezing and Denies other ( shortness of breath) GI Denies abdominal pain, Denies melena, Denies hematochezia, Denies change in bowel habits, Denies dyspepsia and Denies nausea Denies hematuria and Denies dysuria Musc Denies abnormal gait, Denies myalgias, Denies arthralgias, Denies numbness and Denies tingling Skin/Breast Denies rash, Denies unusual bruising and Denies wounds Neuro Denies abnormal gait, Reports dizziness, Reports headache(s), Denies memory loss, Denies numbness, Denies Sensory deficit (Neuro), Denies tingling and Denies weakness Psych Denies anxiety, Denies depression, Denies memory loss Endo Denies cold intolerance, Denies fatigue, Denies heat intolerance, Denies polydipsia and Denies polyuria Aller/Immun Denies wheezing Physical exam (Primary Care) Vital Signs: Last Vital Signs Temp 98.4 F 06/01/24 13:36 Pulse 100 06/01/24 13:56 Resp 20 06/01/24 13:36 BP 164/78 H 06/01/24 14:58 Pulse Ox 94 06/01/24 13:36 Oxygen Delivery Method Room Air 06/01/24 13:36 BMI result Body Mass Index 38.6 Tobacco/Smoking Status: Tobacco use Status Tobacco use date assessed 06/01/24 06/01/24 13:39 Patient Tobacco Use Status Former Tobacco user 06/01/24 13:33 Tobacco use type 09/09/22 09:31 e-Cigarette/Vaping Use Never Used 06/01/24 13:33 Thrive Assessment: Date of Thrive Assessment Date Thrive assessed 05/10/24 06/01/24 13:33 Currently or been in a relationship where the following occur: No concerns reported Const Other: General: no acute distress and well developed Nutritional Appearance: well nourished Orientation/consciousness: patient oriented x3 HENMT Head is normocephalic Bilateral ear canal and TM are normal Nasal turbinates and oropharynx are pink and moist Sinuses are nontender with palpation No auricular or cervical lymphadenopathy Eyes General: appearance normal, both eyes and all related structures Pupils: Equal, round and reactive pupils present EOM: EOMs intact bilaterally Resp Effort & Inspection: normal respiratory effort Auscultation: clear to auscultation bilaterally Cardio Rate: regular rate Rhythm: regular rhythm Heart sounds: S1 normal heart sound present, S2 normal heart sound present, no gallops, no murmurs and no rubs GI Palpation (GI): No Abdominal aortic bruit present, Soft to palpation, nontender, No hepatosplenomegaly present and No Rebound tenderness present Auscultation: normal bowel sounds General: Yes no CVA tenderness Back/Spine/Pelvis Back: no CVA tenderness Cervical Spine: cervical ROM normal and No Cervical spine tenderness Thoracic/Lumbar Spine: thoraco-lumbar ROM normal, No pain with thoraco-lumbar ROM, No thoracic spinal tenderness and No lumbar spinal tenderness Extrem General: Yes normal to inspection, No edema and No calf tenderness Skin General: warm and dry. Normal skin color. Normal skin turgor Neuro General: patient oriented x3, gait normal and no focal neuro deficit Cranial nerves: Yes Equal, round and reactive pupils present Cognition (Neuro): normal cognition Gait exam (Neuro): Normal gait present Sensory Exam: No Sensory deficit (Neuro) Psych Appearance: grossly normal Affect: normal affect Attitude: cooperative Thought process: Normal thought process present Coding Level of Care Code Est Pt Level 4 (49992) Diagnoses Viral upper respiratory illness J06.9 Essential hypertension I10 Assessment & Plan Assessment & Plan (1) Viral upper respiratory illness: Code(s): J06.9 - Acute upper respiratory infection, unspecified Category: Medical Plan: Likely viral illness though possibly allergies. No exam evidence of bacterial infection Viral illness There is no antibiotic medication for viruses.? They must run their course.? Most average 5-7 days but 7-10 days is not uncommon and up to 14 days is still possible.? A cough is often the last symptom to resolve and this can last for weeks in some cases. Rest Hydrate well -? Drink plenty of fluids.? Especially water. Tylenol or ibuprofen for muscle aches, headache, fever/discomfort Cannot rule out COVID-19/RSV/Flu infection Nasal swab acquired and will be sent to the lab Tamiflu and benzonatate as prescribed Return for new or worsening symptoms Verbalized understanding and agreed with treatment plan. (2) Essential hypertension: Code(s): I10 - Essential (primary) hypertension Category: Medical Plan: Resting blood pressure is 190/90, above goal of less than 130/80, heart rate is 100. Likely due to current viral illness and possible dehydration. Clonidine 0.2 mg administered in the office. Blood pressure improved to 164/78 20 minute after clonidine. Continue current treatment regimen. Follow-up for nurse visit for blood pressure check next Wednesday. Return sooner with worsening or new symptoms. Verbalized understanding and agreed with treatment plan. Orders: Orders SARS-CoV2/FLU/RSV Today J06.9 - Acute upper respiratory infection, unspecified Medications: New oseltamivir (Tamiflu) 75 mg PO BID 10 caps 0RF 5 days benzonatate 100 mg PO BID PRN 10 caps 0RF cough
[2024-06-01 13:36] VITALS: BP 203/82; PULSE 100; RESP 20; TEMP 36.9; O2SAT 94; BMI 38.6
[2024-06-01 13:56] VITALS: BP 190/90; PULSE 100
[2024-06-01 14:58] VITALS: BP 164/78
--- OUTSIDE RECORDS SUMMARY | 2024-06-01 16:42 | XMS_ITS | Clinical Summary ---
Author Organization [employer] Address [address] [place] [address] 7 [place] [address] Care Team Providers Care Television Receiver Analyzer Name Role Phone Unavailable Primary Care Provider [...] Description 07/13/2024 9:00 AM EDT Office Visit [facility] [address] [place], [place] [id number] Alma Delia Garcia [address] [place], [place] [id number] Health Maintenance Due Date Last Done Comments [...] Most Recently Relevant to Health [place] [address] [facility] BESSIE
--- OUTSIDE RECORDS SUMMARY | 2024-06-01 16:42 | XMS_ITS | Clinical Summary ---
Author Organization [facility] Address [address] [place] [address] Care Team Providers Care Manager Camp Name Role Phone Unavailable Primary Care Provider [...] age to complete this topic Insurance MEDICARE [facility]
== END 2024-06-01 15:55 | disposition home or self-care (01) ==
PROVIDERS: PCP Family Medicine; Visit Provider Nurse Practitioner Family
DX: J06.9 Acute upper respiratory infection, unspecified (principal); I10 Essential (primary) hypertension

== ENCOUNTER 2024-09-06 09:39 | Outpatient (AMB) | payer MEDICARE, SELFPAY ==
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
[2024-09-06 09:51] VITALS: BP 130/64; PULSE 62; BMI 38.4
--- OUTSIDE RECORDS SUMMARY | 2024-09-06 10:02 | XMS_ITS | Patient Health Record ---
Author Organization [facility] Address [address] [place] [address] Care Team Providers Care Legal Internship Name Role Phone Phyllis(inactive) Silvino CONROY Primary Care Provider U Ulises Fitzgerald Jr Unavailable [phone] Allergies Allergen (clinical drug ingredient) Drug/Non Drug Allergy documented on EMR Reaction Allergy Type Onset Date Status oxycodone OxyContin Unknown Drug Allergy Active Reason For Referral No Information Medications Medication SIG (Take, Route, Frequency, Duration) Notes Start Date End Date Status Gabapentin 400 MG 2 capsule Orally twice a day Active hydroCHLOROthiazide 50 MG 1 tablet Orall y Once a day Active PARoxetine HCl 20 MG 1 tablet in the morning Orally Once a day Active Lisinopril 40 MG 1 tablet Orally Once a day Active Colyte with Flavor Packs 240 GM As direc rupesh Orally Over the specified time. for 1 day(s) 01/01/2016 Active Colyte with Flavor Packs 240 GM As direc rupesh Orally Over the specified time. for 1 day(s) 01/01/2016 Active Problems Problem Type SNOMED Code ICD Code Onset Dates Problem Status W/U Status Risk Notes Problem 128418880 Colon cancer screening (Z12.11) Active confirmed Problem [id number] Long-term curren t use of high risk medication other than anticoagulant (Z79.899) Active confirmed Plan Of Treatment Future Test Test Name Order Date COLONOSCOPY 01/01/2016 Insurance Providers Payer Name Payer Address Payer Phone Subscriber Number Group Number Insured Name Patient Relationship to Insured Coverage Start Date Coverage End Date MEDICARE OF [place] [address] [place] [address] [id number] JOVANI GARCIA Self - patient is the insured [employer] ATT[employer] CLAIMS [address] [place] [address] [id number] JOVANI GARCIA Self - patient is the insured Medical (General) History Medical History History ICD Code hypertension cervical cancer pinched nerve Surgical History Surgery Date(Month/Year) hysterectomy torn ligament surgery elbow surgery 2005 thumb surgery 07/02/2015
--- OUTSIDE RECORDS SUMMARY | 2024-09-06 10:02 | XMS_ITS | Clinical Summary ---
Author Organization [facility] Facility Address [address] [place] [id number] Care Team Providers Care Vegetable Thinner Name Role Phone Unavailable Primary Care Provider [...] Colorectal Cancer Screening: Sigmoidoscopy 12/05/1999 Pneumococcal Vaccine: 50+ Ye ars (1 of 1 - PCV) 2000 Influenza Vaccine (Season Ended) 2024 Hepatitis B Vaccine Aged Out No longe r eligible based on patient's age to complete this topic Insurance Medicare [facility] Medicare [facility]
--- OUTSIDE RECORDS SUMMARY | 2024-09-06 10:02 | XMS_ITS | Clinical Summary ---
Author Organization [employer] Address [address] [place] [address] [address] [place] [address] Care Team Providers Care Biophysics Professor Name Role Phone Unavailable Primary Care Provider [...] by mouth Once per day. 4 Active Encounters Date Type Department Care Team Description 07/12/2024 2:00 PM EDT Office Visit [facility] [address] [place], [place] [phone] Alma Delia Garcia Gingival recession, generalized (Primary Dx) from Last 3 Months Social History Tobacco Use Types Packs/Day Years [...] Sign Reading Time Taken Comments Blood Pressure 138/68 07/12/2024 2:00 PM EDT Pulse 61 07/12/2024 2:00 PM EDT Temperature - - Respiratory Rate - - Oxygen Saturation - - Inhaled Oxygen Concentration - - Weight - - Height - - Body Mass Index - - Plan of Treatment Upcoming Encounters Date Type Department Care Team (Late st Contact Info) Description 01/18/2025 8:00 AM EST Office Visit [facility] [address] [place] [address] Alma Delia Garcia [address] [place] [address] Health Maintenance Due Date Last Done Comments [...] of 2 - PCV) 11/03/2019 11/02/2018, 11/09/2017 Dental X-Ray: Bitewings 07/05/2024 07/05/19 24, 03/02/2018, 02/01/2017, Additional history exists Dental Oral Exam 07/06/2024 01/06/2024, 03/2018, 08/09/2017, Additional history exists COVID-19 Vaccine ( season) 2024 01/11/2024, 01/14/2023, 11/21/2021, Additional history exists Dental Prophylaxis 01/13/2025 07/12/2024, 1 , 07/05/2023, Additional history exists Tobacco Screening 07/12/2025 07/12/2024 RSV Patients and Patients Aged 60 years or older Completed 01/14/2023 Influenza Vaccine Completed 01/11/2024, , 11/21/2021, Additional history exists HIB Vaccines Aged Out No longer eligi [...] patient's age to complete this topic Meningococcal B Vaccine Aged Out No l onger eligible based on patient's age to complete [...] Procedure Name Priority Date/Time Associated Diagnosis Comments LIMITED ORAL EVALUATION - PROBLEM FOCUSED Routine 07/12/2024 2:00 PM EDT PROPHYLAXIS - ADULT Routine 07/12/2024 2 :00 PM EDT PERIODIC ORAL EVALUATION - ESTABLISHED PATIENT Routine 01/06/2024 10:00 AM EDT BITEWINGS - 4 RADIOGRAPHIC IMAGES Routine 07/05/2023 11:00 AM EDT INTRAORAL - COMPLETE SERIES OF RADIOGRAPHIC IMAGES Routine 12/12/2015 12:00 AM EDT from Last 3 Months or Most Recently Relevant to Health Maintenance Insurance [facility]
== END 2024-09-06 10:18 | disposition home or self-care (01) ==
LOC: HO.HCS 09:40
PROVIDERS: PCP Family Medicine; Visit Provider Internal Medicine Cardiovascular Disease
DX: I20.89 Other forms of angina pectoris (principal); I10 Essential (primary) hypertension
CPT/HCPCS: 93010; 99214

== ENCOUNTER → 2024-09-06 09:39 | Outpatient (BNVA) | payer MEDICARE, SELFPAY | PROVIDERS: PCP Family Medicine; Visit Provider Internal Medicine Cardiovascular Disease | DX: I20.89 Other forms of angina pectoris (principal); I10 Essential (primary) hypertension; I51.7 Cardiomegaly; I45.10 Unspecified right bundle-branch block; R94.31 Abnormal electrocardiogram [ECG] [EKG] | CPT/HCPCS: 93005; 99212 ==

== ENCOUNTER 2024-10-04 09:48 | Outpatient (REF) | payer MEDICARE, SELFPAY ==
--- OUTSIDE RECORDS SUMMARY | 2024-10-04 10:26 | XMS_ITS | Clinical Summary ---
Author Organization [facility] Facility Address [address] [place] [address] Care Team Providers Care Mineral Surveyor Name Role Phone Unavailable Primary Care Provider [...] of 1 - PCV) 2000 Influenza Vaccine (#1) 2024 Hepatitis B Vaccine Aged Out No longe r eligible based on patient's age to complete this topic Insurance Medicare [facility] Medicare [facility]
--- OUTSIDE RECORDS SUMMARY | 2024-10-04 10:27 | XMS_ITS | Patient Health Record ---
Author Organization [facility] Address [address] [place] [address] Care Team Providers Care Predictive Maintenance Specialist Name Role Phone Phyllis(inactive) Silvino CONROY Primary Care Provider U Ulises Fitzgerald Jr Unavailable [phone] Allergies Allergen (clinical drug ingredient) Drug/Non Drug [...] Problem Status W/U Status Risk Notes Problem 408020374 Colon cancer screening (Z12.11) Active confirmed Problem [id number] Long-term curren t use of high risk medication other than anticoagulant (Z79.899) Active confirmed Plan Of Treatment Future Test Test Name Order Date COLONOSCOPY 01/01/2016 Insurance Providers Payer Name Payer Address Payer Phone Subscriber Number Group Number Insured Name Patient Relationship to Insured Coverage Start Date Coverage End Date MEDICARE OF [place] [address] [place] [address] [phone] [id number] JOVANI GARCIA Self - patient is the insured MEDEX ATTN CLAIMS [address] [place] [address] [id number] JOVANI GARCIA Self - patient is the insured Medical (General) History Medical History History ICD Code hypertension cervical cancer pinched nerve Surgical History Surgery Date(Month/Year) hysterectomy torn ligament surgery elbow surgery 2005 thumb surgery 07/02/2015
--- OUTSIDE RECORDS SUMMARY | 2024-10-04 10:27 | XMS_ITS | Clinical Summary ---
Author Organization [employer] Address [address] [place] [address] [address] [place] [address] Care Team Providers Care Financial Services Technician Name Role Phone Unavailable Primary Care Provider [...] Description 07/12/2024 2:00 PM EDT Office Visit [facility] [address] [place], [place] [phone] Alma Delia Garcia Gingival recession, generalized (Primary [...] Description 01/18/2025 8:00 AM EST Office Visit [facility] [address] [place] [address] Alma Delia Garcia [address] [place] [address] Health Maintenance Due Date Last [...] 2024 01/11/2024, 01/14/2023, 11/21/2021, Additional history exists Influenza Vaccine (#1) 2024 , 11/06/2022, 11/21/2021, Additional history exists Dental Prophylaxis 01/13/2025 07/12/2024, 1 , 07/05/2023, Additional history exists Tobacco Screening 07/12/2025 07/12/2024 RSV Patients and Patients Aged 60 years or older Completed 01/14/2023 HIB Vaccines Aged Out No longer eligi [...] Recently Relevant to Health Maintenance Insurance D[facility]AL [facility] [place]
[2024-10-04 11:12] LABS: MANUAL DIFF FLAG NO
[2024-10-04 11:37] LABS: Hematocrit 44.5 % (37.0-47.0); Hemoglobin 14.7 g/dl (12.0-16.0); Imm Gran Abs Auto 0.02 X10*3/uL (0.00-0.03); Imm Gran Pct Auto 0.3 % (0.0-0.4); Lymphocytes Absolute Auto 2.7 X10*3/uL (1.2-4.9); Mean Corpuscular HGB Conc 33.0 g/dl (31.0-35.0); Mean Corpuscular Hemoglobin 30.6 pg (27.0-33.0); Mean Corpuscular Volume 92.7 fL (80.0-98.0); NRBC Abs Auto 0.000 X10*3/uL (0.0-0.012); NRBC Pct Auto 0.0 /100WBC (0.0-0.2); Platelet Count 207 X10*3/uL (160-400); Red Blood Count 4.80 X10*6/uL (4.20-5.50); White Blood Count 6.3 X10*3/uL (4.8-10.8)
[2024-10-04 12:01] LABS: Alanine Aminotransferase 37 U/L (0-31); Albumin Level 4.0 g/dL (3.5-5.0); Alkaline Phosphatase 81 U/L (39-117); Anion Gap 10 (12-20); Aspartate Amino Transferase 27 U/L (5-31); Blood Urea Nitrogen 16 mg/dL (9-16); Calcium 8.8 mg/dL (8.4-10.2); Carbon Dioxide 31 mmol/L (22-29); Chloride 104 mmol/L (96-108); Cholesterol 137 mg/dL (<200); Estimated Glomerular Filt Rate > 60; HDL Cholesterol 47 mg/dL (>40); Potassium 4.4 mmol/L (3.3-5.1); Sodium 141 mmol/L (135-145); Total Protein 7.2 g/dL (6.5-8.0); Triglycerides 240 mg/dL (<150)
[2024-10-04 14:34] LABS: Appearance Urine Clear; Glucose Urine UA Negative (Negative); PH 7.5 (5.0-9.0); Specific Gravity - Urine <= 1.005 (1.005-1.025); UMIC TRIGGER UA YES
== END 2024-10-04 09:49 | disposition home or self-care (01) ==
LOC: HO.WFDLDS 09:48
PROVIDERS: Visit Provider Family Medicine
DX: Z00.00 Encounter for general adult medical examination without abnormal findings (principal); I10 Essential (primary) hypertension; R31.29 Other microscopic hematuria
CPT/HCPCS: 36415; 80053; 80061; 81001; 82043; 82570; 84443; 85025

== ENCOUNTER 2024-12-12 11:35 | Outpatient (AMB) | payer MEDICARE, SELFPAY ==
--- NOTE | 2024-12-12 11:43 | A.OFFPC_ITS ---
Vital Signs 12/12/24 11:50 12/12/24 12:04 Height 5 ft 2 in Weight 208 lb 8 oz BMI 38.1 BP 160/80 H 160/80 H Blood Pressure Location Lt brachial Lt brachial Position Sitting Sitting Respiration 15 Pulse 61 Pulse Source Pulse Oximeter Temp 97.7 F Temp Source Temporal Artery Scan Pulse Oximetry (%) 94 Oxygen Delivery Method Room Air Intake Visit Reasons: f/u Intake Note: Joi presents in the office today for a follow up to diabetes. Allergies rosuvastatin Allergy (Severe, Verified 12/12/24 11:47) Muscle cramps Dmpuauv-DKM-UiU Reductase Inhibitor Allergy (Severe, Verified 12/12/24 11:47) Muscle cramps oxycodone (OXYCODONE) Allergy (Mild, Verified 12/12/24 11:47) NAUSEA & VOMITING, auditory hallucination, hallucinations atorvastatin Adverse Reaction (Severe, Verified 12/12/24 11:47) muscle aches/Terrible leg pain bupropion (From WELLBUTRIN) Adverse Reaction (Mild, Verified 12/12/24 11:47) NAUSEA & VOMITING Medication List - Last Reconciled 12/12/24 by Obdulio Sabillon MD acetaminophen (Tylenol Extra Strength) 500 mg PO Q6H PRN acetaminophen (Tylenol) 650 mg (2 x 325 mg) PO Q6H PRN ascorbate calcium (vitamin C) 500 mg PO DAILY colchicine 0.6 mg PO DAILY Eliquis (apixaban) 2.5 mg PO BID NS evolocumab (Repatha SureClick) 140 mg subcut Q2W fluticasone propionate 50 mcg/actuation (Flonase Allergy Relief) 1 spray intranasal BID 30 days furosemide 40 mg PO DAILY 90 days gabapentin 300 mg (3 x 100 mg) PO Q12H 30 days lidocaine 5% (Lidoderm) 1 patch topical DAILY losartan 50 mg PO BID metformin 750 mg (1.5 x 500 mg) PO DAILY 90 days metoprolol succinate ER 12.5 mg (1/2 x 25 mg) PO ONCE multivitamin 1 tab PO DAILY paroxetine HCl 40 mg PO DAILY 90 days tirzepatide (weight loss) (Zepbound) 2.5 mg (0.5 mL) subcut QWEEK 28 days Tobacco use date assessed: 12/12/24 Fall risk assessment: No Falls in past year Last assessed Fall Risk: 12/12/24 Dental Screening Dental Screen Date: 12/12/24 Did you have a dental visit in the last 12 months?: Yes Did you have a dental problem in the last 6 months where you did not have access to dental care?: No Was dental information given to patient?: Patient has dentist HPI f/u HPI Details 74 y/o female presents to f/u diabetes, HTN. Blood pressure today 160/80, 61p. BP today metoprolol 12.5mg, losartan 50mg b.i.d. A1c today 12/12/24 6.1%. She is on metformin 750mg daily. Last labs drawn 10/04/24. Reviewed labs with pt. AST 27. ALT 37. Triglycerides 240. TC 137. LDL 42. HDL 47. Pt notes ongoing frustration with her weight. [facility] Medical History Flushing Factor 5 Leiden mutation, heterozygous CAD (coronary artery disease) PSVT (paroxysmal supraventricular tachycardia) Hyperlipidemia Diabetes type 2, controlled Essential hypertension Uterine cancer Hypertension Surgical History History of surgery History of open heart surgery History of hysterectomy Family History Sister Lung cancer Stroke Father Heart attack Mother Heart attack Son Diabetes Brother Parkinsons Lung cancer Brother Diverticulitis Other Mental health disorder Substance abuse Social History (Updated 12/12/24 @ 11:50 by Melisa Brown CMA) Household Members: None Household Members Other:: , 1 son cardiac@ 48 Housing: House Alcohol intake: current Alcohol intake frequency: holidays/special occasions only Alcohol type: wine Patient Tobacco Use Status: Former Tobacco user Years Smoked: 6 +/- e-Cigarette/Vaping Use: Never Used Second Hand Smoke Exposure: No service: No Current occupational status: retired 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 Current occupational exposures/hazards: No Cognitive needs: No Hearing needs: No Vision needs: No Questionnaire Thrive Questionnaire Date Thrive assessed: 05/10/24 I am a: Patient What is your living situation today?: I have a steady place to live Within the past 12 months, did the food you bought not last and you didn't have the money to get more?: Never true Within the past 12 months, did you worry whether your food would run out before you got money to buy more?: Never true Do you have trouble paying for medicines?: No Do you have trouble getting transportation to medical appointments?: No Do you have trouble paying your heating and electricity bill?: No Do you have trouble taking care of your child, family member or friend?: No Do you have trouble with day-to-day activities such as bathing, preparing meals, shopping, managing finances, etc.?: No Are you currently unemployed and looking for a job?: No Are you interested in more education?: I choose not to answer this question Please select the resources that you would like help with: None Currently or been in a relationship where the following occur: No concerns reported THRIVE Score: 0 EMMANUELLE-7 AMB Questionnaire EMMANUELLE-7 Date EMMANUELLE - 7 assessed: 03/19/23 Source: Developed by Drs. Justice Panda, Ruthie Chavira, Rm Sexton and colleagues, with an educational jim from [employer]. Review of Systems Const Denies chills, Denies fatigue, Denies fever(s), Denies headache(s) and Denies weakness ENT Denies dizziness and Denies headache(s) Card Denies dyspnea Resp Denies cough, Denies dyspnea, Denies wheezing and Denies other (shortness of breath) Musc Denies numbness and Denies tingling Neuro Denies dizziness, Denies headache(s), Denies numbness, Denies tingling and Denie s weakness Psych Denies anxiety and Denies depression Endo Denies fatigue Aller/Immun Denies wheezing Physical exam (Primary Care) Vital Signs: Last Vital Signs Temp 97.7 F 12/12/24 11:50 Pulse 61 12/12/24 11:50 Resp 15 12/12/24 11:50 BP 160/80 H 12/12/24 12:04 Pulse Ox 94 12/12/24 11:50 Oxygen Delivery Method Room Air 12/12/24 11:50 BMI result Body Mass Index 38.1 Tobacco/Smoking Status: Tobacco use Status Tobacco use date assessed 12/12/24 12/12/24 11:55 Patient Tobacco Use Status Former Tobacco user 12/12/24 11:50 Tobacco use type 07/05/23 09:31 e-Cigarette/Vaping Use Never Used 12/12/24 11:50 Thrive Assessment: Date of Thrive Assessment Date Thrive assessed 05/10/24 12/12/24 11:43 Currently or been in a relationship where the following occur: No concerns reported Const General: well developed; No acute distress Nutritional Appearance: well nourished Orientation/consciousness: patient oriented x3 HENMT Head: Yes normocephalic and Yes atraumatic Eyes General: appearance normal, both eyes and all related structures Pupils: Equal, round and reactive pupils present EOM: EOMs intact bilaterally Resp Effort & Inspection: normal respiratory effort Neuro General: patient oriented x3 and gait normal Cranial nerves: Yes Equal, round and reactive pupils present Psych Affect: normal affect Results AMB Hemoglobin A1c AMB Hemoglobin A1c 6.1 % Last Edit by Melisa Brown CMA on 12/12/24 12:05 Results Reviewed Results Reviewed: Laboratory Last Values Hgb A1c (Clinic) 6.1 % (4.0-6.0) H 12/12/24 11:43 Coding Level of Care Code Est Pt Level 4 (33420) Diagnoses Diabetes type 2, controlled E11.9 Essential hypertension I10 CAD (coronary artery disease) I25.10 Elevated liver enzymes R74.8 Obesity E66.9 Depression with anxiety F41.8 Assessment & Plan Assessment & Plan (1) Diabetes type 2, controlled: Code(s): E11.9 - Type 2 diabetes mellitus without complications Category: Medical Plan: A1c improved from 6.2% to 6.1%. Good control. Goal is less than 7% Continue diabetic diet Patient would like to try a GLP 1 medication however for blood sugar control as well as weight control. Sending a script for Zepbound (2) Essential hypertension: Code(s): I10 - Essential (primary) hypertension Category: Medical Plan: Blood pressure is too high. Goal is less than 130/80 She is taking metoprolol and losartan Will change losartan 50 mg b.i.d. to losartan-hydrochlorothiazide 50/12.5 mg b.i.d. (3) CAD (coronary artery disease): Comment: Code(s): I25.10 - Atherosclerotic heart disease of [place] coronary artery without angina pectoris Category: Medical Plan: Stable Follow-up with Cardiology in March as recommended (4) Elevated liver enzymes: Code(s): R74.8 - Abnormal levels of other serum enzymes Category: Medical Plan: Mildly elevated liver enzyme and prior ultrasound showed hepatic steatosis with some simple cysts Encouraged weight loss-see below Encouraged good hydration (5) Obesity: Code(s): E66.9 - Obesity, unspecified Category: Medical Plan: Patient is frustrated with her inability to lose weight. She also has difficulty moving secondary to knee pain Will try GLP 1 medication. Risks/benefits discussed (6) Depression with anxiety: Code(s): F41.8 - Other specified anxiety disorders Category: Medical Plan: Ongoing anxiety and depression. She is on Paxil and has a therapist. She does not want to change her Paxil medication currently. Continue medication and follow-up with therapist as recommended Orders: Orders Comprehensive [place]. Panel Fast 12/12/24 R74.01 - Elevation of levels of liver transaminase levels, Z00.00 - Encounter for general adult medical examination without abnormal findings Microalbumin, Random (w Creat) 12/12/24 E11.9 - Type 2 diabetes mellitus without complications, I10 - Essential (primary) hypertension UA CC w/rflx Micro + Cult 12/12/24 E11.9 - Type 2 diabetes mellitus without complications, Z00.00 - Encounter for general adult medical examination without abnormal findings AMB Hemoglobin A1c 12/12/24 E11.9 - Type 2 diabetes mellitus without complications Hemoglobin A1c 12/12/24 E11.9 - Type 2 diabetes mellitus without complications, R73.01 - Impaired fasting glucose Medications: New tirzepatide (weight loss) (Zepbound) for 4 weeks 2.5 mg (0.5 mL) subcut QWEEK 2 mL 3RF 28 days losartan-hydrochlorothiazide 50-12.5 mg Take AM and Midafternoon 1 tab PO BID 180 tabs 3RF 90 days Discontinued losartan Discontinued Reason: Doctor's Order 50 mg PO BID 120 tabs 3RF
[2024-12-12 11:50] VITALS: BP 160/80; PULSE 61; RESP 15; TEMP 36.5; O2SAT 94; BMI 38.1
[2024-12-12 12:04] VITALS: BP 160/80
--- OUTSIDE RECORDS SUMMARY | 2024-12-12 14:40 | XMS_ITS | Clinical Summary ---
Author Organization [employer] Address [address] [place] [address] 7 [place] [address] Care Team Providers Care Public Health Social Worker Name Role Phone Unavailable Primary Care Provider [...] Upcoming Encounters Date Type Department Care Team ([place]avin st Contact Info) Description 01/18/2025 8:00 AM EST Office Visit [facility] D[facility] [address] [place], [place] [phone] Alma Delia Garcia [address] [place], [place] [phone] Health Maintenance Due Date Last Done Comments [...] Associated Diagnosis Comments PROPHYLAXIS - ADULT Routine 07/12/2024 2 :00 PM EDT PERIODIC ORAL EVALUATION - ESTABLISHED PATIENT Routine 01/06/2024 10:00 AM EDT BITEWINGS - 4 RADIOGRAPHIC IMAGES Routine 07/05/2023 11:00 AM EDT INTRAORAL - COMPLETE SERIES OF RADIOGRAPHIC IMAGES Routine 12/12/2015 12:00 AM EDT from Last 3 Months or Most Recently Relevant to [place] [address] DENTAL [facility] [place]
--- OUTSIDE RECORDS SUMMARY | 2024-12-12 14:40 | XMS_ITS | Clinical Summary ---
Author Organization [facility] Facility Address [address] [place] [address] Care Team Providers Care Armored Service Technician Name Role Phone Unavailable Primary Care [...] age to complete this topic Insurance Medicare [facility] Medicare [facility]
--- OUTSIDE RECORDS SUMMARY | 2024-12-12 14:40 | XMS_ITS | Clinical Summary ---
Author Organization [facility] Address [address] [place] [address] Phone Care Team Providers Care Electrophysiology Nurse Practitioner Name Role Phone Obdulio Sabillon MD Primary Care Provider Allergies Active Allergy Reactions Criticality Noted Date Comments Bupropion 07/01/2022 Oxycodone 07/01/2022 Medications Medication-Free Text Gabapentin Active PAROXETINE HCL ORAL Active ELIQUIS 2.5 mg Take 1 tablet by mouth 2 (two) times a day. Active metoprolol succinate (TOPROL-XL) 50 MG 24 hr tablet Take 10 mg by mouth daily. Active Active Problems Problem Noted Date Diagnosed Date Primary osteoarthritis of left knee 07/01/2022 07/01/2022 Arthralgia of lower leg 07/01/2022 07/02/19 Immunizations Immunization Administration Dates Next Due COVID-19 (Pre-12/28) Pfizer Vaccine, mRNA, PF INFLUENZA, SPLIT VIRUS, TRIVALENT PF 12/07/2014 Influenza High-Dose Quadrivalent Preservative Fr ee IM 11/21/2021 Influenza High-Dose Trivalent Preservative Free IM 12/21/2017,02/04/2017 Influenza Quadrivalent Preservative Free IM 12/06 Influenza Trivalent Adjuvanted Preservative free IM 11/14/2019,11/22/2018 Pneumococcal polysaccharide PPSV23 11/02/2018, Td (adult),2 Lf Tetanus Toxoid, PF, Adsorbed 05/2019 Social History Tobacco Use Types Packs/Day Years Used Date Smoking Tobacco: Never Assessed Education Answer Date Recorded Are you interested in more education? Not on reymundo e 07/03/2022 Are you concerned about learning? Not on file 07/03/2022 No 07/03/2022 No 07/03/2022 Digital Access Answer Date Recorded No 08/03/2022 No 08/03/2022 Reliable internet access at home? Not on file 08/03/2022 Device with a working camera? Not on file Comments Unknown Sex and Gender Information Value Date Recorded Sex Assigned at Not on file Legal Sex Female 10:36 PM EDT Gender Identity Not on file Sexual Orientation Not on file Last Filed Vital Signs Vital Sign Reading Time Taken Comments Blood Pressure 145/83 07/01/2022 3:12 PM EDT Pulse 66 07/01/2022 3:12 PM EDT Temperature 36.4 C (97.5 F) 07/01/2022 3:12 PM EDT Respiratory Rate 18 07/01/2022 3:12 PM EDT Oxygen Saturation 97% 07/01/2022 3:12 PM EDT Inhaled Oxygen Concentration - - Weight 113.4 kg (250 lb) 07/01/2022 3:12 PM EDT Height 157.5 cm (5' 2 ) 07/01/2022 3:12 PM EDT Body Mass Index 45.73 07/01/2022 3:12 PM EDT Plan of Treatment Health Maintenance Due Date Last Done Comments CREATININE LEVEL 1950 LIPID PANEL 1950 DEPRESSION SCREENING 1962 SMOKING Hx and SMOKELESS TOBACCO SCREENING 12/05/1963 HEPATITIS C SCREENING 1968 MAMMOGRAM 1990 COLOGUARD 12/05/1995 COLONOSCOPY 12/05/1995 COLORECTAL CANCER SCREENING 12/05/1995 FIT TEST 12/05/1995 FOBT 12/05/1995 SIGMOIDOSCOPY 12/05/1995 VIRTUAL COLONOSCOPY 12/05/1995 ZOSTER VACCINES (1 of 2) 2000 RSV VACCINE (1 - Risk 60-74 years 1-dose series) 2010 OSTEOPOROSIS SCREENING INITIAL (ONE-TIME) 12/05/2015 PNEUMOCOCCAL VACCINES (50+ years) (2 of 2 - PCV) 11/03/2019 11/02/2018, 11/09/2017 INFLUENZA VACCINE (#1) 2024 2, 12/18/2020, 11/14/2019, Additional history exists COVID-19 VACCINE ( - season) 2024 11/21/2021, 01/13/2021, 06/25/2020, Additional history exists Adult Td,Tdap Booster 05/08/2029 05/09/2019 HEPATITIS A VACCINES Aged Out No long er eligible based on patient's age to complete this topic HIB VACCINES Aged Out No longer eligi ble based on patient's age to complete this topic MENINGOCOCCAL VACCINES (ACWY) Aged Out No longer eligible based on patient's age to complete this topic MENINGOCOCCAL VACCINES (B) Aged Out N o longer eligible based on patient's age to complete this topic Medical Devices Not on file Insurance MEDICARE PART A & B [facility] MEDEX SUPPLEMENT MEDICARE PART A & B [employer] MED[employer] SUPPLEMENT ([place]) [address] [place] [address] MEDICARE PART A & B [employer] MEDEX SUPPLEMENT MEDICARE PART A & B [employer] SUPPLEMENT MEDICARE PART A & B [employer] MED[employer] SUPPLEMENT MEDICARE PART A & B [employer] SUPPLEMENT MEDICARE PART A & B [employer] MEDEX SUPPLEMENT MEDICARE PART A & B [employer] MEDEX SUPPLEMENT MEDICARE PART A & B [employer] MEDEX SUPPLEMENT Care Teams Electrophysiology Nurse Practitioner Relationship Specialty Start Date End Date Obdulio Sabillon MD [address] [place] [address] PCP - General Family Medicine 07/01/22 Additional Source Comments The information contained in this document represents components of the legal health record. It is not the complete legal health record.[facility]
--- OUTSIDE RECORDS SUMMARY | 2024-12-12 14:40 | XMS_ITS | Patient Health Record ---
Author Organization [facility] Address [address] [place] [address] Care Team Providers Care Fuel Testing Technician Name Role Phone Phyllis(inactive) Silvino CONROY Primary Care Provider U Ulises Fitzgerald Jr Unavailable Allergies Allergen (clinical drug ingredient) Drug/Non Drug [...] Problem Status W/U Status Risk Notes Problem [id number] Colon cancer screening (Z12.11) Active confirmed Problem [id number] Long-term curren t use of high risk medication other than anticoagulant (Z79.899) Active confirmed Plan Of Treatment Future Test Test Name Order Date COLONOSCOPY 01/01/2016 Insurance Providers Payer Name Payer Address Payer Phone Subscriber Number Group Number Insured Name Patient Relationship to Insured Coverage Start Date Coverage End Date MEDICARE OF [place] [address] [place] [address] [id number] JOVANI GARCIA Self - patient is the insured MEDEX ATTN CLAIMS [address] [place] [address] [id number] JOVANI GARCIA Self - patient is the insured Medical (General) History Medical History History ICD Code hypertension cervical cancer pinched nerve Surgical History Surgery Date(Month/Year) hysterectomy torn ligament surgery elbow surgery 2005 thumb surgery 07/02/2015
== END 2024-12-12 12:32 | disposition home or self-care (01) ==
LOC: HO.HMCFM 11:35
PROVIDERS: PCP Family Medicine; Visit Provider Family Medicine
DX: E11.9 Type 2 diabetes mellitus without complications (principal)

== ENCOUNTER → 2024-12-12 11:35 | Outpatient (BNVA) | payer MEDICARE, SELFPAY | PROVIDERS: PCP Family Medicine; Visit Provider Family Medicine | DX: I10 Essential (primary) hypertension (principal); E11.9 Type 2 diabetes mellitus without complications; I25.10 Atherosclerotic heart disease of native coronary artery without angina pectoris; R74.8 Abnormal levels of other serum enzymes; E66.9 Obesity, unspecified | CPT/HCPCS: 83036; 99212 ==